=== PATIENT | female | born 1965 | race Caucasian/White ===

== ENCOUNTER 2021-03-12 13:11 | Outpatient (REF) | payer OTHER, SELFPAY ==
--- NOTE | ~2021-03-12 | MM_ITS ---
EXAMINATION: MM SCREENING DIGITAL BREAST TOMOSYNTHESIS, BILATERAL CLINICAL INFORMATION: Screening. Asymptomatic. The lifetime risk of breast cancer based on the Tyrer-Cuzick Model is 8%. COMPARISON: Mammography: 11/09/2019, 10/04/2017, 09/25/2016 TECHNIQUE: Digital breast tomosynthesis is performed in both the craniocaudal and mediolateral oblique views along with computer-aided detection (CAD). Synthesized 2D images are generated from the tomosynthesis. Additional exaggerated left CC view is provided. FINDINGS: The breasts are almost entirely fatty (ACR BI-RADS breast composition Category a). There are no significant masses, abnormal calcifications, or other abnormalities. Background stromal densities are stable. The axilla and skin contours are unremarkable. MM/MM tomosynthesis screening BI IMPRESSION: No mammographic evidence of malignancy. ASSESSMENT: BI-RADS 1: Negative RECOMMENDATION: Routine annual mammography screening. This patient's information was entered into a reminder system with a target due date for their next mammogram.
== END 2021-03-12 13:12 | disposition home or self-care (01) ==
LOC: HO.MAMMO 13:11
PROVIDERS: Visit Provider Internal Medicine Medical Oncology
DX: Z12.31 Encounter for screening mammogram for malignant neoplasm of breast (principal)
CPT/HCPCS: 77063; 77067

== ENCOUNTER 2021-08-20 12:08 | Outpatient (REF) | payer OTHER, SELFPAY ==
--- NOTE | ~2021-08-20 | XR_ITS ---
EXAMINATION: XR LUMBOSACRAL SPINE CLINICAL INFORMATION: Pain. COMPARISON: None TECHNIQUE: AP and lateral views of the lumbar spine and lateral view of the lumbosacral junction. FINDINGS: There is mild bony demineralization. Bony alignment is normal. Slight anterior wedging is questioned of the L4 lower endplate. There is vacuum disc phenomenon at T11-12 and T12-L1. There is moderate disc space narrowing L4-5, with a 5 mm retrolisthesis and vacuum disc phenomenon. There is moderate to marked disc space narrowing at L5-S1. No acute fracture or spondylolisthesis is seen. There is multi-level thoracolumbar spondylosis. There is facet arthropathy, most pronounced at L5-S1. Aortoiliac atherosclerotic calcifications are seen. There are upper abdominal surgical clips. Bilateral hip arthroplasties are noted. XR/XR lumbar spine 2-3V IMPRESSION: 1. There is multi-level degenerative disc disease of the thoracolumbar spine, most pronounced at T11-12, T12-L1, L4-5 and L5-S1. 2. There is multi-level thoracolumbar spondylosis. 3. There is an equivocal slight anterior wedge compression fracture of the L4 lower endplate. 4. There is facet arthropathy, most pronounced at L5-S1.
== END 2021-08-20 12:09 | disposition home or self-care (01) ==
LOC: HO.XRAY 12:08
PROVIDERS: PCP Internal Medicine Medical Oncology; Visit Provider Internal Medicine Medical Oncology
DX: M54.50 Low back pain, unspecified (principal)
CPT/HCPCS: 72100

== ENCOUNTER 2021-10-05 16:56 | Emergency (ER) | payer OTHER, SELFPAY ==
--- NOTE | ~2021-10-05 | XR_ITS ---
EXAMINATION: XR KNEE, RIGHT CLINICAL INFORMATION: Fall with knee pain COMPARISON: None TECHNIQUE: Two views of the right knee. FINDINGS: Severe tricompartmental degenerative changes are present most marked in the lateral and patellofemoral compartment a small joint effusion is present. Sclerosis, joint space narrowing and osteophytes are seen. The medial compartment is only mildly narrowed. No acute fracture detected. 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 XR/XR knee RT 2V IMPRESSION: Tricompartmental degenerative changes as described above. No acute finding.
[2021-10-05 17:14] VITALS: BP 158/93; PULSE 116; RESP 18; TEMP 36.5; O2SAT 100; BMI 40.2
--- NOTE | 2021-10-05 19:07 | ED.LOWEXIN ---
HPI - Extremity Injury (Lower) General Chief Complaint: Extremity Injury, Lower Stated Complaint: knee pain Time Seen by Provider: 10/05/21 18:44 Source: patient Mode of arrival: ambulatory Limitations: no limitations History of Present Illness HPI Narrative: 56-year-old female with a history of osteoarthritis in both of her knees, status post left knee replacement in the past, obesity who presents to the ER with acute on chronic right knee pain. She reports a mechanical fall about 2 weeks ago she fell onto her right knee. She has some pain directly on the knee cap and above the knee for about a week and a half it has been improving. She states about 2 days ago she has had worsening pain on the lateral aspect of her knee with difficulty and pain with bending the knee. today she was unable to put any weight on the knee and not able to ambulate at all. She has been using a cane and hobbling around. She denies any fever or chills. No redness or warmth to the knee. She has been wearing her knee brace with little over a fact. She has been taking intermittent Aleve and she had some leftover tramadol for her lower back pain that she took with minimal relief. MD complaint: knee injury Onset (ago): week(s) (2) Injury: Right: knee Type of Injury: blunt Place: home Severity: severe Severity scale (1-10): 9 Relieving factors: immobilization and rest Exacerbating factors: weight bearing, movement and palpation Context: fall Associated symptoms: swelling and unable to bear weight Other symptoms: none Related Data Previous Rx's Medication Instructions Recorded hydrocodone 5 mg-acetaminophen 325 1 tab PO Q8H PRN #8 tab 10/05/21 mg tablet Allergies Allergy/AdvReac Type Severity Reaction Status Date / Time amoxicillin [From AUGMENTIN] Allergy Unknown UNKNOWN Verified 10/05/21 17:14 clavulanic acid Allergy Unknown UNKNOWN Verified 10/05/21 17:14 [From AUGMENTIN] sulfamethoxazole Allergy Unknown UNKNOWN Verified 10/05/21 17:14 [From BACTRIM] trimethoprim [From BACTRIM] Allergy Unknown UNKNOWN Verified 10/05/21 17:14 Review of Systems Review of Systems: Constitutional: No Fever, No Chills Cardiovascular: No Chest Pain, No SOB, No Orthopnea, No Edema Respiratory: No Cough, No Sputum Gastrointestinal: No Nausea, No Vomiting, No Diarrhea, No abdominal Pain Musculoskeletal: + joint pain, No Myalgias Skin: No Skin Lesions, No rash Neuro: No Weakness, No Numbness, No Dizziness, No Headache Psych: + Anxiety/Panic, No Depression Heme/Lymph: + Bruising, No Lymphadenopathy PMFSH Past Medical History Medical History (Updated 10/05/21 @ 19:59 by LURDES aHrdin) High cholesterol HTN (hypertension) Social History Social History Advance Directives: No Advance Directives Information Provided: No Physical Exam Vital Signs: Vital Signs: Last Vital Signs Temp 97.7 F 10/05/21 17:14 Pulse 116 H 10/05/21 17:14 Resp 18 10/05/21 17:14 BP 158/93 H 10/05/21 17:14 Pulse Ox 100 10/05/21 17:14 Body Mass Index 40.2 Appearance: Alert. Oriented X3. No acute distress. HEENT: normal inspection CVS: Normal heart rate and rhythm. Pulses normal. Respiratory: No respiratory distress. Skin: Skin warm and dry. Normal skin color. Normal skin turgor. No rashes. Extremities: Left knee with a well-healed surgical scar consistent with prior knee replacement. No swelling or tenderness, normal range of motion. Right knee with mild generalized swelling lateral joint line tenderness normal passive range of motion with pain beyond 90 degrees. No joint warmth, erythema. No joint laxity appreciated. Neuro: Oriented X 3. No motor deficit. No sensory deficit. Course Course Course Narrative: 56 y/o female presenting with acute on chronic right knee pain s/p fall 2 weeks ago, acutely worsening in the last 2-3 days without any additional trauma. No evidence of septic joint. x-ray showing severe tricompartmental degenerative changes without acute fracture. There is a small joint effusion. She is able to partially bear weight with her cane. She lives at home with her son and . She lives in a two-story home but is agreeable to stay on the main floor until her pain is improved and she can be seen orthopedics. She would like to be seen by our orthopedic surgeon and knock of action when the Orthopedics. Will place an Santana wrap for comfort and prescribed short course of narcotics for pain. She will call Orthopedics tomorrow for follow-up. She is stable for discharge home. Critical Care Time Critical Care Time Critical Care Time: No Discharge Plan Discharge Clinical Impression: Knee joint pain Qualifiers: Laterality: right Qualified Code(s): M25.561 - Pain in right knee Patient Disposition: Home, Self-Care Instructions: Knee Pain (ED) Additional Instructions: Your knee x-ray showed severe tricompartmental degenerative changes in the lateral and patellofemoral compartments with a small joint effusion. Sclerosis joint space narrowing and osteophytes are seen. No acute fracture detected. Recommend rest, compression with Santana wrap, elevation, and pain control. You need to follow-up with orthopedics as soon as possible. Name and number below Prescriptions: New hydrocodone-acetaminophen 5-325 mg tablet 1 tab PO Q8H PRN (Reason: pain) Qty: 8 RF: 0 Referrals: Moise Espinosa MD [Physician] - 2 days
[2021-10-05] MEDS: HYDROcodone Bit/Acetam 5/325 TABLET 1 TAB PO (19:36)
[2021-10-05] MEDS: Ketorolac Tromethamine 15 MG/ML VIAL 30 MG IM (19:38)
== END 2021-10-05 20:23 | disposition home or self-care (01) ==
PROVIDERS: Emergency Provider Emergency Medicine; PCP Internal Medicine Medical Oncology
DX: M25.561 Pain in right knee (principal); Z79.899 Other long term (current) drug therapy
CPT/HCPCS: 73560; 96372; 99283; 99284; J1885

== ENCOUNTER 2021-10-31 07:26 | Outpatient (REF) | payer OTHER, SELFPAY ==
--- NOTE | ~2021-10-31 | XR_ITS ---
EXAMINATION: XR KNEE AP STANDING XR KNEE, RIGHT CLINICAL INFORMATION: Pain in the right knee. COMPARISON: X-ray of the right knee September 2021. TECHNIQUE: AP bilateral standing view of the knees was obtained. 3 views of the right knee. Patella view of the right knee. FINDINGS: Right Knee: There is prominent stable genu valgus with severe joint space narrowing of the lateral compartment along with marginal osteophytes, unchanged compared to prior. Probable loose bodies posteriorly better seen on prior radiographs. No lateral view obtained on this exam. Medial Compartment: Widened medial compartment likely related to the genu valgus. Arthrosis of the medial compartment with marginal osteophytes. Probable loose body projecting over the medial compartment. Patellofemoral Compartment: Bipartite patella. There is severe arthrosis of the patellofemoral compartment with prominent marginal osteophytes. Again noted is the central partially calcified intramedullary lesion in the distal diametaphysis of the femur measuring up to 6.5 cm craniocaudal and 2.7 cm transverse. Limited AP Upright of the Left Knee: Left total knee arthroplasty noted with components in the usual position. No periprosthetic fracture or suspicious area of lucency. XR/XR knee RT 1V IMPRESSION: Right Knee: Severe osteoarthritis, unchanged compared to prior. Again noted is the intramedullary distal femur mass with a chondroid-appearing matrix. The differential diagnosis includes enchondroma but cannot exclude low-grade chondrosarcoma. Further workup or evaluation based on additional clinical factors. No change compared to 10/05/2021. Bone infarct is possible but thought to be less likely. Left Knee Limited: Left total knee arthroplasty without complication by x-ray.
--- NOTE | ~2021-10-31 | XR_ITS ---
EXAMINATION: XR KNEE AP STANDING XR KNEE, RIGHT CLINICAL INFORMATION: Pain in the right knee. COMPARISON: X-ray of the right knee September 2021. TECHNIQUE: AP bilateral standing view of the knees was obtained. 3 views of the right knee. Patella view of the right knee. FINDINGS: Right Knee: There is prominent stable genu valgus with severe joint space narrowing of the lateral compartment along with marginal osteophytes, unchanged compared to prior. Probable loose bodies posteriorly better seen on prior radiographs. No lateral view obtained on this exam. Medial Compartment: Widened medial compartment likely related to the genu valgus. Arthrosis of the medial compartment with marginal osteophytes. Probable loose body projecting over the medial compartment. Patellofemoral Compartment: Bipartite patella. There is severe arthrosis of the patellofemoral compartment with prominent marginal osteophytes. Again noted is the central partially calcified intramedullary lesion in the distal diametaphysis of the femur measuring up to 6.5 cm craniocaudal and 2.7 cm transverse. Limited AP Upright of the Left Knee: Left total knee arthroplasty noted with components in the usual position. No periprosthetic fracture or suspicious area of lucency. XR/XR knee standing BI IMPRESSION: Right Knee: Severe osteoarthritis, unchanged compared to prior. Again noted is the intramedullary distal femur mass with a chondroid-appearing matrix. The differential diagnosis includes enchondroma but cannot exclude low-grade chondrosarcoma. Further workup or evaluation based on additional clinical factors. No change compared to 10/05/2021. Bone infarct is possible but thought to be less likely. Left Knee Limited: Left total knee arthroplasty without complication by x-ray.
== END 2021-10-31 07:27 | disposition home or self-care (01) ==
LOC: HO.HOSX 07:26
PROVIDERS: Visit Provider Physician Assistant
DX: M17.11 Unilateral primary osteoarthritis, right knee (principal)
CPT/HCPCS: 73560; 73565; 99202

== ENCOUNTER 2022-01-07 09:50 | Outpatient (REF) | payer OTHER, SELFPAY ==
--- NOTE | 2022-01-07 10:49 | ECG_ITS ---
Test Reason : Z01.810 Blood Pressure : / mmHG Vent. Rate : 106 BPM Atrial Rate : 106 BPM P-R Int : 184 ms QRS Dur : 084 ms QT Int : 352 ms P-R-T Axes : 062 011 049 degrees QTc Int : 467 ms Sinus tachycardia Otherwise normal ECG No previous ECGs available Referred By: Moise Espinosa Electronically Signed By:NATI BOSS
[2022-01-07 11:04] LABS: MANUAL DIFF FLAG NO
[2022-01-07 11:42] LABS: Basophils Absolute Auto 0.1 X10*3/uL (0.0-0.2); Basophils Percent Auto 0.6 % (0-2); Eosinophils Absolute Auto 0.6 X10*3/uL (0.0-0.4); Eosinophils Percent Auto 5.5 % (0-4); Hematocrit 44.4 % (37.0-47.0); Hemoglobin 14.2 g/dl (12.0-16.0); Imm Gran Abs Auto 0.04 X10*3/uL (0.00-0.03); Imm Gran Pct Auto 0.4 % (0.0-0.4); Lymphocytes Absolute Auto 3.1 X10*3/uL (1.2-4.9); Lymphocytes Percent Auto 30.4 % (20-40); Mean Corpuscular Hemoglobin 26.9 pg (27.0-33.0); Mean Corpuscular Volume 84.1 fL (80.0-98.0); Monocytes Absolute Auto 0.8 X10*3/uL (0.1-1.2); Monocytes Percent Auto 7.3 % (2-11); Neutrophils Absolute Auto 5.7 x10*3/uL (2.0-8.3); Neutrophils Percent Auto 55.8 % (45-73); Platelet Count 449 X10*3/uL (160-400); Red Blood Count 5.28 X10*6/uL (4.20-5.50); Red Cell Distribution Width 14.9 % (11.0-16.0); White Blood Count 10.3 X10*3/uL (4.8-10.8)
[2022-01-07 12:17] LABS: Anion Gap 14 (12-20); Blood Urea Nitrogen 8 mg/dL (9-16); Calcium 10.1 mg/dL (8.4-10.2); Carbon Dioxide 27 mmol/L (22-29); Chloride 104 mmol/L (96-108); Estimated Glomerular Filt Rate > 60; Glucose Random 120 mg/dL (60-115); Potassium 4.3 mmol/L (3.3-5.1); Sodium 141 mmol/L (135-145)
== END 2022-01-07 09:51 | disposition home or self-care (01) ==
LOC: HO.LAB 09:50
PROVIDERS: Visit Provider Orthopaedic Surgery
DX: Z01.812 Encounter for preprocedural laboratory examination (principal); Z01.810 Encounter for preprocedural cardiovascular examination
CPT/HCPCS: 36415; 80048; 85025; 93005

== ENCOUNTER 2022-01-21 09:21 | Outpatient (REF) | payer OTHER, SELFPAY ==
[2022-01-21 10:15] LABS: MANUAL DIFF FLAG NO
[2022-01-21 10:24] LABS: Basophils Absolute Auto 0.1 X10*3/uL (0.0-0.2); Basophils Percent Auto 0.6 % (0-2); Eosinophils Absolute Auto 0.4 X10*3/uL (0.0-0.4); Eosinophils Percent Auto 4.1 % (0-4); Hematocrit 42.4 % (37.0-47.0); Hemoglobin 13.7 g/dl (12.0-16.0); Imm Gran Abs Auto 0.05 X10*3/uL (0.00-0.03); Imm Gran Pct Auto 0.5 % (0.0-0.4); Lymphocytes Absolute Auto 2.8 X10*3/uL (1.2-4.9); Mean Corpuscular HGB Conc 32.3 g/dl (31.0-35.0); Mean Corpuscular Hemoglobin 26.4 pg (27.0-33.0); Mean Corpuscular Volume 81.9 fL (80.0-98.0); Mean Platelet Volume 9.8 fL (9.4-12.3); Monocytes Absolute Auto 0.8 X10*3/uL (0.1-1.2); Monocytes Percent Auto 8.3 % (2-11); Neutrophils Absolute Auto 5.8 x10*3/uL (2.0-8.3); Neutrophils Percent Auto 58.5 % (45-73); Platelet Count 425 X10*3/uL (160-400); Red Blood Count 5.18 X10*6/uL (4.20-5.50); Red Cell Distribution Width 15.1 % (11.0-16.0); White Blood Count 9.9 X10*3/uL (4.8-10.8)
[2022-01-21 10:33] LABS: Alanine Aminotransferase 24 U/L (0-31); Albumin Level 4.2 g/dL (3.5-5.0); Alkaline Phosphatase 82 U/L (39-117); Anion Gap 13 (12-20); Aspartate Amino Transferase 36 U/L (5-31); Bilirubin Total 0.5 mg/dL (0.0-1.0); Blood Urea Nitrogen 11 mg/dL (9-16); Calcium 9.6 mg/dL (8.4-10.2); Carbon Dioxide 26 mmol/L (22-29); Chloride 105 mmol/L (96-108); Cholesterol 125 mg/dL; Estimated Glomerular Filt Rate > 60; Glucose Fasting 107 mg/dL (60-99); HDL Cholesterol 32 mg/dL; LDL Cholesterol Calculated 58 mg/dl; Potassium 3.6 mmol/L (3.3-5.1); Sodium 140 mmol/L (135-145); Triglycerides 179 mg/dL
== END 2022-01-21 09:22 | disposition home or self-care (01) ==
LOC: HO.10HDL 09:21
PROVIDERS: Visit Provider Internal Medicine Medical Oncology
DX: E78.5 Hyperlipidemia, unspecified (principal); G89.29 Other chronic pain; M25.561 Pain in right knee; M15.9 Polyosteoarthritis, unspecified
CPT/HCPCS: 36415; 80053; 80061; 85025

== ENCOUNTER → 2022-01-29 09:27 | Outpatient (BNVA) | payer OTHER, SELFPAY | PROVIDERS: Visit Provider Physician Assistant | DX: Z01.818 Encounter for other preprocedural examination (principal); M17.11 Unilateral primary osteoarthritis, right knee | CPT/HCPCS: 99212 ==

== ENCOUNTER 2022-02-03 08:07 | Inpatient (IN) | payer OTHER, SELFPAY ==
[2022-01-22 12:01] VITALS: BP 144/88; PULSE 94; RESP 20; O2SAT 98; BMI 39.3
[2022-01-22 15:03] LABS: MRSA Nasal PCR NEGATIVE (Negative); SA Nasal PCR POSITIVE (Negative)
--- NOTE | 2022-02-02 10:12 | P.CONAN_ITS ---
Documented by User: Teressa Schmitz NP 02/02/22 10:15 HPI - Anesthesia Eval Consult details Narrative: 56yo F for Right Knee Replacement Total PCP cleared s/p Left TKA and bilat ANNA PMFSH Active Problems Active Problems: All Active Problems (Updated 01/22/22 @ 11:54 by Shira French RN) Primary osteoarthritis of right knee (Acute) Past Medical History Medical History Arthritis Back pain GERD (gastroesophageal reflux disease) High cholesterol History of diverticulitis HTN (hypertension) Surgical History Surgical History Hx of cholecystectomy Hx of colonoscopy Status post left knee replacement Status post total hip replacement, left Status post total hip replacement, right Social History Social History Are you a primary spiritual care coordinator to a significant other at home: Yes ( - ill) Do you presently have visiting nurse or other home services: No Patient Tobacco Use Status: Former Tobacco user Quit Date: 1 month ago Tobacco use type: Cigarette Cigarette Packs Per Day: 0.75 Cigarettes Per Day: 15.0 Years Smoked: 10 Smoked in Last 30 Days: No Patient Interested in Nicotine Replacement: No Patient Given Instructions on How to Stop Smoking: No Second Hand Smoke Exposure: No Use of substances other than those prescribed or required for medical reasons: No Have you been hit, kicked, punched, or otherwise hurt by someone within the past year? If so, by whom?: No Are you DNR?: Yes Advance Directives: No Advance Directives Information Provided: Yes Advance Directives on File: No Recently lost weight without trying: No Eating poorly because of decreased appetite: No Nutrition Risks: No Nutritional Risk Patient : No : No Poor oral hygiene: No (Intact teeth) Meds Allergies Allergy/AdvReac Type Severity Reaction Status Date / Time amoxicillin [From AUGMENTIN] Allergy Unknown Severe Verified 02/03/22 08:20 Vaginal Burning clavulanic acid Allergy Unknown Severe Verified 02/03/22 08:20 [From AUGMENTIN] Vaginal Burning sulfamethoxazole Allergy Unknown Rash Verified 02/03/22 08:20 [From BACTRIM] trimethoprim [From BACTRIM] Allergy Unknown Rash Verified 02/03/22 08:20 Home Medications Medication Instructions Recorded Confirmed Last Taken Type lisinopril 20 1 tab PO DAILY 01/07/22 01/21/22 Unknown History mg-hydrochlorothiazide 12.5 mg tablet omeprazole 20 mg capsule,delayed 20 mg PO DAILY 01/07/22 01/21/22 Unknown History release simvastatin 80 mg tablet 80 mg PO QPM 01/07/22 01/21/22 Unknown History acetaminophen 650 mg 1,300 mg PO Q12H 01/22/22 01/22/22 Unknown History tablet,extended release ibuprofen 200 mg capsule 800 mg PO Q8H PRN 01/22/22 01/22/22 01/27/22 History naproxen sodium 220 mg capsule 440 mg PO Q12H PRN 01/22/22 01/22/22 01/27/22 History (Alerhoda) Exam Exam Date and Time: February 02, 2022 1012 Height,Weight and Vital Signs: Height 5 ft 2 in Weight 97.522 kg Last Vital Signs Pulse 94 01/22/22 12:01 Resp 20 01/22/22 12:01 BP 144/88 H 01/22/22 12:01 Pulse Ox 98 01/22/22 12:01 Pertinent Lab Results Pertinent Lab Results: Laboratory Tests 01/22/22 01/22/22 12:40 13:42 Nasal Screen MRSA (PCR) NEGATIVE Nasal S. aureus Screen POSITIVE A Nasal MRSA/S.aureus Interp SEE NOTE Blood Type O Positive Antibody Screen NEGATIVE Laboratory Tests 01/21/22 01/21/22 09:28 09:28 WBC 9.9 Hgb 13.7 Hct 42.4 Plt Count 425 H Sodium 140 Potassium 3.6 Chloride 105 Carbon Dioxide 26 BUN 11 Creatinine 0.76 Narrative Narrative: EKG 12/2021 Vent. Rate : 106 BPM ? ? Atrial Rate : 106 BPM ?? P-R Int : 184 ms? QRS Dur : 084 ms ? ? QT Int : 352 ms ? ? ? P-R-T Axes : 062 011 049 degrees ?? QTc Int : 467 ms ? Sinus tachycardia Otherwise normal ECG No previous ECGs available Assessment and Plan Assessment Anesthesia Assessment: Chart Reviewed Documented by User: Kemar Acevedo MD 02/03/22 10:01 [facility] Past Medical History Medical History Arthritis Back pain GERD (gastroesophageal reflux disease) High cholesterol History of diverticulitis HTN (hypertension) Family History Family history of problems with anesthesia: No Surgical History Surgical History Hx of cholecystectomy Hx of colonoscopy Status post left knee replacement Status post total hip replacement, left Status post total hip replacement, right History of Problems with Anesthesia: No Social History Social History Are you a primary spiritual care coordinator to a significant other at home: Yes ( - ill) Do you presently have visiting nurse or other home services: No Patient Tobacco Use Status: Former Tobacco user Quit Date: 1 month ago Tobacco use type: Cigarette Cigarette Packs Per Day: 0.75 Cigarettes Per Day: 15.0 Years Smoked: 10 Smoked in Last 30 Days: No Patient Interested in Nicotine Replacement: No Patient Given Instructions on How to Stop Smoking: No Second Hand Smoke Exposure: No Use of substances other than those prescribed or required for medical reasons: No Have you been hit, kicked, punched, or otherwise hurt by someone within the past year? If so, by whom?: No Are you DNR?: Yes Advance Directives: No Advance Directives Information Provided: Yes Advance Directives on File: No Recently lost weight without trying: No Eating poorly because of decreased appetite: No Nutrition Risks: No Nutritional Risk Patient : No : No Poor oral hygiene: No (Intact teeth) Meds Allergies Allergy/AdvReac Type Severity Reaction Status Date / Time amoxicillin [From AUGMENTIN] Allergy Unknown Severe Verified 02/03/22 08:20 Vaginal Burning clavulanic acid Allergy Unknown Severe Verified 02/03/22 08:20 [From AUGMENTIN] Vaginal Burning sulfamethoxazole Allergy Unknown Rash Verified 02/03/22 08:20 [From BACTRIM] trimethoprim [From BACTRIM] Allergy Unknown Rash Verified 02/03/22 08:20 Home Medications Medication Instructions Recorded Confirmed Last Taken Type lisinopril 20 1 tab PO DAILY 01/07/22 01/21/22 Unknown History mg-hydrochlorothiazide 12.5 mg tablet omeprazole 20 mg capsule,delayed 20 mg PO DAILY 01/07/22 01/21/22 Unknown History release simvastatin 80 mg tablet 80 mg PO QPM 01/07/22 01/21/22 Unknown History acetaminophen 650 mg 1,300 mg PO Q12H 01/22/22 01/22/22 Unknown History tablet,extended release ibuprofen 200 mg capsule 800 mg PO Q8H PRN 01/22/22 01/22/22 01/27/22 History naproxen sodium 220 mg capsule 440 mg PO Q12H PRN 01/22/22 01/22/22 01/27/22 History (Wendy) Exam Airway Mallampati Class: III TM Dist: >3cm Neck ROM: Full Loose/Missing/Broken Teeth: Yes Assessment and Plan Assessment Anesthesia Assessment: Anesthesia Plan Discussed Final Anesthetic Review Family History of Problems with Anesthesia: No History of Problems with Anesthesia: No NPO: Yes ASA Class: III Final Preanesthetic Review: No Changes in Pt Med Stat, Meds/Allgs Chart Reviewed, Consent Obtained/Reviewed and Anes Risks/Benef Reviewed Patient Risk: Intermediate Procedure Risk: Intermediate Anesthetic Plan Anesthetic Plan: MAC:, Spinal and Regional Block Disposition: Standard PACU
[2022-02-03] VITALS (19 sets, daily range): BP systolic 107–183; BP diastolic 64–97; PULSE 76–98; RESP 12–20; TEMP 35.8–37.1; O2SAT 95–100
--- NOTE | ~2022-02-03 | XR_ITS ---
EXAMINATION: XR KNEE, RIGHT CLINICAL INFORMATION: Right knee replacement COMPARISON: Previous x-ray October 2021 TECHNIQUE: Two views of the right knee. FINDINGS: There is a new right knee replacement in satisfactory position. No fracture or dislocation is seen. There is a partially calcified intramedullary lesion in the distal femoral shaft that appears stable suggestive of a cartilaginous lesion. This probably represents an enchondroma. Low-grade chondrosarcoma cannot be excluded. There are postoperative changes to the soft tissues. XR/XR knee RT 2V IMPRESSION: Satisfactory appearance of right knee replacement. Stable intramedullary lesion in the right distal femoral shaft. This probably represents an enchondroma. Low-grade chondrosarcoma cannot be excluded.
--- NOTE | 2022-02-03 07:49 | MHC.SHP ---
Pre-Procedural Eval Section A Date of Service: 02/03/22 The patient is an INPATIENT: No Changes since office visit: Yes Patient answered all questions; No Cold of Flu in the past 2 weeks, No New Medical Problems and No Changes in Medication The History & Physical has been completed within 30 days and I have reviewed it.: Yes Section B Chief Complaint: osteoarthritis Allergies: Allergies Allergy/AdvReac Type Severity Reaction Status Date / Time amoxicillin [From AUGMENTIN] Allergy Unknown Severe Verified 01/29/22 09:34 Vaginal Burning clavulanic acid Allergy Unknown Severe Verified 01/29/22 09:34 [From AUGMENTIN] Vaginal Burning sulfamethoxazole Allergy Unknown Rash Verified 01/29/22 09:34 [From BACTRIM] trimethoprim [From BACTRIM] Allergy Unknown Rash Verified 01/29/22 09:34 Plan I have reviewed the history and physical and performed a pertinent physical examination on my patient. No changes have occurred unless specified.
[2022-02-03 08:51] LABS: COVID-19 Test Negative (Negative); IDNOW Serial# 16C4AD1C
[2022-02-03] MEDS: Lactated Ringers 1,000 ML 100 ML IVCONT ×2 (08:53→17:19)
--- NOTE | 2022-02-03 11:11 | PM.OP ---
Brief Operative Note Date of Service: 02/03/22 Pre-op diagnosis: right knee OA Post-op diagnosis: same Procedure: Right TKA Implants: Sara triathalon cemented PS 01/16//s Surgeon: Moise Espinosa MD Anesthesia: regional and spinal Was an Hob Machine Operator used for this Procedure?: Yes Hob Machine Operator: Caity Bolivar Estimated blood loss (mL): 200 IV fluids (mL): 1,000 Pathology: other Condition: stable Disposition: PACU
--- NOTE | 2022-02-03 11:17 | W.PM.OPN ---
Operative Note Operative Note Date of Service: 02/03/22 Narrative: Pre-op diagnosis: right knee OA Post-op diagnosis: same Procedure: Right TKA Implants: [place] triathalon cemented PS 3//13TS/29s Surgeon: Moise Espinosa MD Anesthesia: regional and spinal Was an Assembler Metal Furniture used for this Procedure?: Yes Assembler Metal Furniture: Caity Bolivar Estimated blood loss (mL): 200 IV fluids (mL): 1,000 Pathology: other Condition: stable Disposition: PACU ]Procedure in detail: The patient was brought to the operating room and prepped and draped in standard sterile fashion. A time-out was called to identify proper site proper procedure proper surgeon and IV antibiotics were administered. 1 g of IV tranexamic acid was administered. I began by making a midline incision to the retinaculum and performed a medial parapatellar arthrotomy. The patella was translated laterally and the knee was flexed up. This was a valgus knee iwth eburnation in all compartments. I performed a small medial peel and resected the infrapatellar fat pad. Sheryl's line was then used to drill my intramedullary femoral guide and my distal femur cut of 12 mm was made in 5 degrees of valgus while protecting the soft tissues. I then measured a # 3 femur and placed my cutting guide and made my anterior posterior and chamfer cuts protecting the soft tissues at all times. I then made my box but removing the PCL. Once I was satisfied with my cuts I turned my attention to the tibia. I removed the meniscus medially and laterally and , using an external cutting guide, in line with the tibial crest and the third ray, I made my distal tibial cut in 0 deg slope of while protecting the PCL the posterior soft tissues at all times. An extension block was used to confirm appropriate amount of bony resection. I then sized a #4 tibia and once I was satisfied that there was complete tibial coverage I placed my trial and with the trial femur in place took the knee through range of motion. I piecrusted the tight LCL. I was satisfied with the extension and flexion as well as the stability and balance at 0, 30 and 90 degrees. I then turned my attention to the patella where I removed about 5 from the undersurface of the severely deformed patella. There was a loose bipartitie piece which was removed. I then trialed a 29s patellar button. The knee was taken through range of motion I was satisfied with the tracking. A femoral bone plug was placed and the knee was irrigated copiously. I then cemented the patella, tibia and femur in standard fashion. I trialed different inserts until I selected a #[id number] insert. The final insert was placed and a 3 minutes iodine soak with local TXA was performed. Hemostasis was maintained with a Werewol hemostasis wand. The knee was then closed with a running Quill suture, a 3 0 Vicryl and ruby on the skin. Patient was then placed in sterile dressing and brought to recovery room in stable condition there were no known complications.
[2022-02-03] MEDS: oxyCODONE HCl Immed Release 5 MG TABLET PO ×2 (11:29→17:13)
[2022-02-03] MEDS: HYDROmorphone HCl 0.5 MG/0.5 ML SYRINGE IVPUSH ×2 (15:26→16:05)
--- NOTE | 2022-02-03 16:38 | HO.PM.IMCN ---
History of Present Illness Data of Consult Service Date: 02/03/22 Primary Care Provider: Stefan Sandoval MD HPI 56-year-old female with hypertension, hyperlipidemia, GERD, osteoarthritis of the knee who had a right knee arthroplasty today has no issue postoperatively. Review of Systems Review of Systems: no chest pain, no sob pain in the knee is maneageabe [facility] Medical History (Updated 02/04/22 @ 10:[address] MD) Arthritis Back pain GERD (gastroesophageal reflux disease) High cholesterol History of diverticulitis HTN (hypertension) Family History (Updated 02/03/22 @ 16:[address] MD) Other HTN (hypertension) Surgical History (Updated 02/04/22 @ 07:37 by Francheska Clark PA-C) Hx of cholecystectomy Hx of colonoscopy Status post left knee replacement Status post total hip replacement, left Status post total hip replacement, right Social History Household Members: Spouse Housing: House 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: Yes ( - ill) Do you presently have visiting nurse or other home services: No Patient Tobacco Use Status: Former Tobacco user Quit Date: 3 weeks ago Tobacco use type: Cigarette Cigarette Packs Per Day: 0.75 Cigarettes Per Day: 15.0 Years Smoked: 20 Second Hand Smoke Exposure: No Meds Allergies Allergy/AdvReac Type Severity Reaction Status Date / Time amoxicillin [From AUGMENTIN] Allergy Unknown Severe Verified 02/03/22 08:20 Vaginal Burning clavulanic acid Allergy Unknown Severe Verified 02/03/22 08:20 [From AUGMENTIN] Vaginal Burning sulfamethoxazole Allergy Unknown Rash Verified 02/03/22 08:20 [From BACTRIM] trimethoprim [From BACTRIM] Allergy Unknown Rash Verified 02/03/22 08:20 Active Medications: Current Medications Acetaminophen (Acetaminophen 325 Mg Tablet) 650 mg PO Q6H PRN PRN Reason: Pain, Mild (Pain Scale 1-3) Docusate Sodium (Docusate Sodium 100 Mg Capsule) 100 mg PO BID [place] Hydromorphone HCl (Hydromorphone Hcl 1 Mg/Ml Syringe) 0.25 mg IVPUSH Q4H PRN; Protocol PRN Reason: Pain, Severe (Pain Scale 7-10) Lactated Ringer's (Lr) 1,000 mls @ 100 mls/hr IVCONT .Q10H [facility] Last Admin: 02/03/22 08:53 Dose: 100 mls/hr Documented by: Cefazolin Sodium/Dextrose (Ancef) 2 gm in 50 mls @ 100 mls/hr IV POSTOP ONE Stop: 02/03/22 16:53 Ondansetron HCl (Ondansetron Hcl 4 Mg/2 Ml Vial) 4 mg IVPUSH Q8H PRN PRN Reason: Nausea and Vomiting Oxycodone HCl (Oxycodone Hcl Immed Release 5 Mg Tablet) 5 mg PO Q4H PRN PRN Reason: Pain, Moderate (Pain Scale 4-6 Oxycodone HCl (Oxycodone Hcl Er 10 Mg Tab.Er.12h) 10 mg PO BID [facility] Sodium Chloride (0.9 % Sodium Chloride Flush 3 Ml Syringe) 3 ml IVFLUSH QSHIFT [facility] Home Medications Medication Instructions Recorded Confirmed Last Taken Type lisinopril 20 1 tab PO DAILY 01/07/22 02/04/22 Unknown History mg-hydrochlorothiazide 12.5 mg tablet omeprazole 20 mg capsule,delayed 20 mg PO DAILY 01/07/22 01/21/22 Unknown History release simvastatin 80 mg tablet 80 mg PO QPM 01/07/22 01/21/22 Unknown History acetaminophen 650 mg 1,300 mg PO Q12H 01/22/22 01/22/22 Unknown History tablet,extended release ibuprofen 200 mg capsule 800 mg PO Q8H PRN 01/22/22 01/22/22 01/27/22 History naproxen sodium 220 mg capsule 440 mg PO Q12H PRN 01/22/22 01/22/22 01/27/22 History ([place]) Physical Exam Vital Signs and Narrative: Vital Signs: Last Vital Signs Temp 98.6 F 02/03/22 15:15 Pulse 86 02/03/22 16:11 Resp 16 02/03/22 16:11 BP 109/64 02/03/22 16:11 Pulse Ox 96 02/03/22 16:11 BMI result Body Mass Index 39.3 Const: Other: Constitutional: Alert, in no distress, overweight. Mental Status: Oriented to person, place and time. Eyes: Pupils are equal, round and reactive to light. Ear, Nose and Throat: Oropharynx clear, mucous membranes moist. Ears and nose without eformities. Trachea midline. Respiratory: Clear to auscultation. No wheezing, rales or rhonchi. Cardiovascular: S1 S2 regular. No murmurs, rubs or gallops. Gastrointestinal: Abdomen soft, non-tender, non-distended. Normal bowel sounds.? Neurologic: Cranial nerves II-XII grossly intact. No focal neurological deficits. Moves all extremities spontaneously.? Skin: No rashes or lesions.? Musculoskeletal: No cyanosis or clubbing. Psychiatric: Normal mood and affect? Results Labs CBC and Chem 7: 02/04/22 05:57 02/04/22 05:57 Labs: Laboratory Results - last 24 hr 02/03/22 08:05 COVID-19 (MINDI) Negative COVID-19 Clin Com See Note Imaging Radiologist's Impressions: Impressions Knee X-Ray 02/03/22 13:50 IMPRESSION: Satisfactory appearance of right knee replacement. Stable intramedullary lesion in the right distal femoral shaft. This probably represents an enchondroma. Low-grade chondrosarcoma cannot be excluded. Assessment and Plan (1) High cholesterol: Status: Acute (2) HTN (hypertension): Status: Acute (3) Status post right knee replacement: Status: Acute (4) GERD (gastroesophageal reflux disease): Status: Acute Plan 56-year-old female with hypertension, hyperlipidemia, GERD, osteoarthritis of the knee who had a right knee arthroplasty today 1/HTN--resume lisinoprio/HCTZ 2/HLD--Simvastatin 3/GERD--omeprazol 4/obesity--weight loss advised 5/s/p right knee arthroplasty--management per ortho
[2022-02-03] MEDS: ceFAZolin Sodium/Dextrose,Iso 2 GM/50 ML PIGGYBACK IV (17:14)
[2022-02-03] MEDS: oxyCODONE HCl ER 10 MG TAB.ER.12H PO (20:31)
[2022-02-03] MEDS: Docusate Sodium 100 MG CAPSULE PO (20:32)
[2022-02-03] MEDS: HYDROmorphone HCl 1 MG/ML SYRINGE 0.25 MG IVPUSH (20:35)
[2022-02-03] MEDS: oxyCODONE HCl Immed Release 5 MG TABLET 10 MG PO (21:36)
--- NOTE | 2022-02-03 21:47 | PC.NURSE ---
P BP elevated 175/97 pulse 94,patient c/o surgicaal pain I medicated for pain,repositioned E will monitor
[2022-02-04] VITALS (11 sets, daily range): BP systolic 155–183; BP diastolic 66–89; PULSE 91–104; RESP 18–21; TEMP 36.2–37.3; O2SAT 93–99
[2022-02-04] MEDS: 0.9 % Sodium Chloride Flush 3 ML SYRINGE IVFLUSH (00:49)
[2022-02-04] MEDS: HYDROmorphone HCl 1 MG/ML SYRINGE 0.25 MG IVPUSH ×4 (00:50→15:44)
[2022-02-04] MEDS: oxyCODONE HCl Immed Release 5 MG TABLET 10 MG PO ×5 (03:01→21:13)
[2022-02-04] MEDS: Lactated Ringers 1,000 ML 100 ML IVCONT ×2 (03:02→15:45)
[2022-02-04 06:14] LABS: MANUAL DIFF FLAG NO
[2022-02-04 06:17] LABS: Basophils Percent Auto 0.1 % (0-2); Hematocrit 37.3 % (37.0-47.0); Imm Gran Abs Auto 0.09 X10*3/uL (0.00-0.03); Imm Gran Pct Auto 0.6 % (0.0-0.4); Lymphocytes Absolute Auto 2.2 X10*3/uL (1.2-4.9); Lymphocytes Percent Auto 14.1 % (20-40); Mean Corpuscular HGB Conc 32.2 g/dl (31.0-35.0); Mean Corpuscular Hemoglobin 26.3 pg (27.0-33.0); Mean Corpuscular Volume 81.8 fL (80.0-98.0); Mean Platelet Volume 9.6 fL (9.4-12.3); Monocytes Absolute Auto 1.3 X10*3/uL (0.1-1.2); Neutrophils Absolute Auto 12.2 x10*3/uL (2.0-8.3); Neutrophils Percent Auto 77.2 % (45-73); Platelet Count 356 X10*3/uL (160-400); Red Blood Count 4.56 X10*6/uL (4.20-5.50); Red Cell Distribution Width 15.4 % (11.0-16.0); White Blood Count 15.8 X10*3/uL (4.8-10.8)
[2022-02-04 06:32] LABS: Anion Gap 12 (12-20); Blood Urea Nitrogen 8 mg/dL (9-16); Calcium 9.1 mg/dL (8.4-10.2); Carbon Dioxide 25 mmol/L (22-29); Chloride 106 mmol/L (96-108); Creatinine Clr Calc Pharmacy 106.6; Estimated Glomerular Filt Rate > 60; Glucose Fasting 138 mg/dL (60-99); Potassium 3.8 mmol/L (3.3-5.1); Sodium 139 mmol/L (135-145)
--- NOTE | 2022-02-04 07:20 | PHA.MEDREC ---
Pharmacy Consult ? Medication Reconciliation Pharmacy has reviewed the medication reconciliation completed by Shira. Yessenia العلي, PharmD
--- NOTE | 2022-02-04 07:34 | P.PNOP_ITS ---
Subjective Subjective Date of Service: 02/04/22 Interval history: POD1 s/p RTKA. Patient had some pain overnight. Pain meds adjusted accordingly and then had adequate relief. No additional complaints. Physical Exam Vital Signs: Vital Signs: Last Vital Signs Temp 97.6 F 02/04/22 03:34 Pulse 99 02/04/22 03:34 Resp 18 02/04/22 05:47 BP 171/86 H 02/04/22 03:34 Pulse Ox 94 02/04/22 03:34 BMI result Body Mass Index 39.3 Extrem: Other: Right knee Aquacel is clean dry and intact. Patient is able to flex and extend. NVI. Procedures Date of Service Date of Service: 02/04/22 Progress Note: A&P Assessment and plan (1) Status post right knee replacement: Status: Acute Plan Continue pain mgmnt Begin ASA for dvt ppx begin PT for RTKA Dispo planning-Pending PT eval, pain mgmnt Fall Risk Details Current Medications: Current Medications Acetaminophen (Acetaminophen 325 Mg Tablet) 650 mg PO Q6H PRN PRN Reason: Pain, Mild (Pain Scale 1-3) Aspirin (Aspirin 325 Mg Tablet) 325 mg PO BID [facility] BY [facility] Docusate Sodium (Docusate Sodium 100 Mg Capsule) 100 mg PO BID [facility] BY [facility] Last Admin: 02/03/22 20:32 Dose: 100 mg Documented by: Hydromorphone HCl (Hydromorphone Hcl 1 Mg/Ml Syringe) 0.25 mg IVPUSH Q4H PRN; Protocol PRN Reason: Pain, Severe (Pain Scale 7-10) Last Admin: 02/04/22 05:47 Dose: 0.25 mg Documented by: Lactated Ringer's (Lr) 1,000 mls @ 100 mls/hr IVCONT .Q10H REPLACED BY [facility] Last Admin: 02/04/22 03:02 Dose: 100 mls/hr Documented by: Ondansetron HCl (Ondansetron Hcl 4 Mg/2 Ml Vial) 4 mg IVPUSH Q8H PRN PRN Reason: Nausea and Vomiting Oxycodone HCl (Oxycodone Hcl Er 10 Mg Tab.Er.12h) 10 mg PO BID [facility] Last Admin: 02/03/22 20:31 Dose: 10 mg Documented by: Oxycodone HCl (Oxycodone Hcl Immed Release 5 Mg Tablet) 10 mg PO Q4H PRN PRN Reason: Pain, Moderate (Pain Scale 4-6 Last Admin: 02/04/22 03:01 Dose: 10 mg Documented by: Sodium Chloride (0.9 % Sodium Chloride Flush 3 Ml Syringe) 3 ml IVFLUSH [facility] Last Admin: 02/04/22 00:49 Dose: 3 ml Documented by: Time Spent With Patient Time: Total time spent is greater than 50% in coordination of care (as documented) at patient's floor/unit and/or counseling patient: Quality Stroke Does the patient have a stroke diagnosis?: No VTE Prior VTE?: No VTE Risk Level:: Surgical - very high VTE Device Contraindication: N/A - Device Ordered VTE Drug Contraindication: N/A - Med Ordered
[2022-02-04] MEDS: Docusate Sodium 100 MG CAPSULE PO ×2 (08:12→19:37)
[2022-02-04] MEDS: Aspirin 325 MG TABLET PO ×2 (08:12→19:37)
[2022-02-04] MEDS: oxyCODONE HCl ER 10 MG TAB.ER.12H PO ×2 (08:12→19:38)
--- NOTE | 2022-02-04 10:16 | HO.PM.IMPN ---
Subjective Subjective Date of Service: 02/04/22 Interval History: f/u on HTN BP is high has not received meds yet Review of Systems no chest pain, no sob pain in the knee is maneageabe Physical Exam Vital Signs: Vital Signs: Last Vital Signs Temp 97.2 F 02/04/22 07:47 Pulse 104 H 02/04/22 07:47 Resp 21 H 02/04/22 07:47 BP 166/78 H 02/04/22 07:47 Pulse Ox 99 02/04/22 07:47 BMI result Body Mass Index 39.3 Const: Other: General: AO X 3, no acute distress Resp: CTA bilateral CVS: S1,S2,RRR GI: +BS, NT, no distention Skin: No rash Neuro: motor grossly intact Psych: appropriate affect Objective Data Active Medications Acetaminophen (Acetaminophen 325 Mg Tablet) 650 mg PO Q6H PRN PRN Reason: Pain, Mild (Pain Scale 1-3) Aspirin (Aspirin 325 Mg Tablet) 325 mg PO BID [facility] Last Admin: 02/04/22 08:12 Dose: 325 mg Documented by: MAMTA Docusate Sodium (Docusate Sodium 100 Mg Capsule) 100 mg PO BID [facility] Last Admin: 02/04/22 08:12 Dose: 100 mg Documented by: MAMTA Hydromorphone HCl (Hydromorphone Hcl 1 Mg/Ml Syringe) 0.25 mg IVPUSH Q4H PRN; Protocol PRN Reason: Pain, Severe (Pain Scale 7-10) Last Admin: 02/04/22 05:47 Dose: 0.25 mg Documented by: KEREN Lactated Ringer's (Lr) 1,000 mls @ 100 mls/hr IVCONT .Q10H [facility] Last Admin: 02/04/22 03:02 Dose: 100 mls/hr Documented by: KEREN Ondansetron HCl (Ondansetron Hcl 4 Mg/2 Ml Vial) 4 mg IVPUSH Q8H PRN PRN Reason: Nausea and Vomiting Oxycodone HCl (Oxycodone Hcl Er 10 Mg Tab.Er.12h) 10 mg PO BID [facility] Last Admin: 02/04/22 08:12 Dose: 10 mg Documented by: MAMTA Oxycodone HCl (Oxycodone Hcl Immed Release 5 Mg Tablet) 10 mg PO Q4H PRN PRN Reason: Pain, Moderate (Pain Scale 4-6 Last Admin: 02/04/22 08:13 Dose: 10 mg Documented by: MAMTA Sodium Chloride (0.9 % Sodium Chloride Flush 3 Ml Syringe) 3 ml IVFLUSH QSHIFT [facility] Last Admin: 02/04/22 08:17 Dose: Not Given Documented by: MAMTA Non-Admin Reason: IV Running Labs CBC & Chem 7: 02/04/22 05:57 02/04/22 05:57 Labs: Laboratory Results - last 24 hr 02/04/22 02/04/22 05:57 05:57 MCV 81.8 MCH 26.3 L MCHC 32.2 RDW 15.4 Plt Count 356 MPV 9.6 Immature Gran % (Auto) 0.6 H Neut % (Auto) 77.2 H Lymph % (Auto) 14.1 L [place] % (Auto) 8.0 Eos % (Auto) 0.0 Baso % (Auto) 0.1 Lymph # (Auto) 2.2 [place] # (Auto) 1.3 H Eos # (Auto) 0.0 Baso # (Auto) 0.0 Abs Immat Gran (auto) 0.09 H Absolute Neuts (auto) 12.2 H Absolute Nucleated RBC 0.000 Nucleated RBC % (auto) 0.0 Anion Gap 12 Estim Creat Clear Calc 106.6 Estimated GFR > 60 Fasting Glucose 138 H Calcium 9.1 Assessment and Plan (1) High cholesterol: Status: Acute (2) HTN (hypertension): Status: Acute Plan 56-year-old female with hypertension, hyperlipidemia, GERD, osteoarthritis of the knee who had a right knee arthroplasty today 1/HTN--BP high this morning, resume lisinoprio/HCTZ 2/HLD--Simvastatin or formulary exchange 3/GERD--omeprazol 4/obesity--weight loss advised 5/s/p right knee arthroplasty--management per ortho ASA for DVT prop Quality Stroke Does the patient have a stroke diagnosis?: No VTE Prior VTE?: No VTE Risk Level:: Surgical - very high VTE Device Contraindication: N/A - Device Ordered VTE Drug Contraindication: N/A - Med Ordered
[2022-02-04] MEDS: Acetaminophen 325 MG TABLET 650 MG PO ×2 (10:50→19:36)
[2022-02-04] MEDS: Omeprazole 20 MG CAPSULE.DR PO (10:50)
--- NOTE | 2022-02-04 11:05 | MHC.CM.NN ---
met with pt who lives with her ..pt is agreeable to vna for home pt as receommended by physical therapy pt has own transport home
[2022-02-04] MEDS: lisinopriL 20 MG TABLET PO (12:50)
[2022-02-04] MEDS: hydroCHLOROthiazide 12.5 MG TABLET PO (12:50)
--- NOTE | 2022-02-04 15:19 | PC.NURSE ---
pt given lisinopril 20mg along with hydrochlorathiazide 12.[place] [id number]. unable to sign out in jan. spoke with pharmacy they were unable to fix
--- NOTE | 2022-02-04 15:28 | HO.POSTANES ---
Post Anesthesia Evaluation Post Anesthesia Evaluation Vital Signs: Vital Signs Temp Pulse Resp BP Pulse Ox 02/04/22 11:20 97.2 F 104 H 21 H 165/66 H 99 02/04/22 07:47 97.2 F 104 H 21 H 166/78 H 99 02/04/22 05:47 18 02/04/22 05:00 18 02/04/22 03:34 97.6 F 99 19 171/86 H 94 Anesthesia: Spinal and Nerve Block Mental Status: Awake Pain Control: Satisfactory Nausea/Vomiting: None Hydration: Adequate Anesthesia-Related Issues: No Anes. Related Issues
[2022-02-04] MEDS: Atorvastatin Calcium 40 MG TABLET PO (19:36)
[2022-02-05] VITALS (8 sets, daily range): BP systolic 110–168; BP diastolic 67–79; PULSE 70–102; RESP 18–20; TEMP 36.1–37.9; O2SAT 92–99
[2022-02-05] MEDS: Lactated Ringers 1,000 ML 100 ML IVCONT (00:58)
[2022-02-05] MEDS: HYDROmorphone HCl 1 MG/ML SYRINGE 0.25 MG IVPUSH ×2 (01:08→15:59)
[2022-02-05 06:38] LABS: MANUAL DIFF FLAG NO
[2022-02-05 06:52] LABS: Basophils Absolute Auto 0.1 X10*3/uL (0.0-0.2); Basophils Percent Auto 0.6 % (0-2); Eosinophils Absolute Auto 0.1 X10*3/uL (0.0-0.4); Eosinophils Percent Auto 0.7 % (0-4); Hematocrit 33.3 % (37.0-47.0); Hemoglobin 10.6 g/dl (12.0-16.0); Imm Gran Abs Auto 0.05 X10*3/uL (0.00-0.03); Imm Gran Pct Auto 0.4 % (0.0-0.4); Lymphocytes Absolute Auto 2.8 X10*3/uL (1.2-4.9); Lymphocytes Percent Auto 22.8 % (20-40); Mean Corpuscular HGB Conc 31.8 g/dl (31.0-35.0); Mean Corpuscular Hemoglobin 26.4 pg (27.0-33.0); Mean Corpuscular Volume 82.8 fL (80.0-98.0); Mean Platelet Volume 9.6 fL (9.4-12.3); Monocytes Absolute Auto 1.2 X10*3/uL (0.1-1.2); Neutrophils Absolute Auto 7.9 x10*3/uL (2.0-8.3); Neutrophils Percent Auto 65.5 % (45-73); Platelet Count 306 X10*3/uL (160-400); Red Blood Count 4.02 X10*6/uL (4.20-5.50); Red Cell Distribution Width 15.9 % (11.0-16.0); White Blood Count 12.1 X10*3/uL (4.8-10.8)
[2022-02-05 07:12] LABS: Anion Gap 14 (12-20); Blood Urea Nitrogen 6 mg/dL (9-16); Calcium 8.9 mg/dL (8.4-10.2); Carbon Dioxide 25 mmol/L (22-29); Chloride 103 mmol/L (96-108); Creatinine Clr Calc Pharmacy 108.3; Estimated Glomerular Filt Rate > 60; Glucose Fasting 107 mg/dL (60-99); Potassium 3.7 mmol/L (3.3-5.1); Sodium 138 mmol/L (135-145)
--- NOTE | 2022-02-05 07:33 | P.PNIM_ITS ---
Subjective Subjective Date of Service: 02/06/22 Interval History: f/u on HTN, s/p elective knee arthroplasty BP is high has not received meds yet Review of Systems no chest pain, no sob pain in the knee is maneageabe Physical Exam Vital Signs: Vital Signs: Last Vital Signs Temp 97.2 F 02/05/22 07:04 Pulse 70 02/05/22 07:04 Resp 20 02/05/22 07:04 BP 161/79 H 02/05/22 07:04 Pulse Ox 92 02/05/22 07:04 BMI result Body Mass Index 39.3 Const: Other: General: AO X 3, no acute distress Resp: CTA bilateral CVS: S1,S2,RRR GI: +BS, NT, no distention Skin: No rash Neuro: motor grossly intact Psych: appropriate affect Objective Data Active Medications Acetaminophen (Acetaminophen 325 Mg Tablet) 650 mg PO Q6H PRN PRN Reason: Pain, Mild (Pain Scale 1-3) Acetaminophen (Acetaminophen 325 Mg Tablet) 650 mg PO BID [facility] Last Admin: 02/04/22 19:36 Dose: 650 mg Documented by: BERNADETTE Aspirin (Aspirin 325 Mg Tablet) 325 mg PO BID [facility] Last Admin: 02/04/22 19:37 Dose: 325 mg Documented by: BERNADETTE Atorvastatin Calcium (Atorvastatin Calcium 40 Mg Tablet) 40 mg PO BEDTIME [facility] Last Admin: 02/04/22 19:36 Dose: 40 mg Documented by: BERNADETTE Docusate Sodium (Docusate Sodium 100 Mg Capsule) 100 mg PO BID [facility] Last Admin: 02/04/22 19:37 Dose: 100 mg Documented by: BERNADETTE Hydrochlorothiazide (Hydrochlorothiazide 12.5 Mg Tablet) 12.5 mg PO DAILY [facility] Hydromorphone HCl (Hydromorphone Hcl 1 Mg/Ml Syringe) 0.25 mg IVPUSH Q4H PRN; Protocol PRN Reason: Pain, Severe (Pain Scale 7-10) Last Admin: 02/05/22 01:08 Dose: 0.25 mg Documented by: KEREN Lisinopril (Lisinopril 20 Mg Tablet) 20 mg PO DAILY [facility] Omeprazole (Omeprazole 20 Mg Capsule.Dr) 20 mg PO DAILY [facility] Last Admin: 02/04/22 10:50 Dose: 20 mg Documented by: HO.YOUB Ondansetron HCl (Ondansetron Hcl 4 Mg/2 Ml Vial) 4 mg IVPUSH Q8H PRN PRN Reason: Nausea and Vomiting Oxycodone HCl (Oxycodone Hcl Er 10 Mg Tab.Er.12h) 10 mg PO BID [facility] Last Admin: 02/04/22 19:38 Dose: 10 mg Documented by: BERNADETTE Oxycodone HCl (Oxycodone Hcl Immed Release 5 Mg Tablet) 10 mg PO Q4H PRN PRN Reason: Pain, Moderate (Pain Scale 4-6 Last Admin: 02/04/22 21:13 Dose: 10 mg Documented by: BERNADETTE Sodium Chloride (0.9 % Sodium Chloride Flush 3 Ml Syringe) 3 ml IVFLUSH QSHIFT [facility] Last Admin: 02/05/22 00:21 Dose: Not Given Documented by: KEREN Non-Admin Reason: IV Running Labs CBC & Chem 7: 02/06/22 05:29 02/06/22 05:29 Labs: Laboratory Results - last 24 hr 02/05/22 02/05/22 06:27 06:27 MCV 82.8 MCH 26.4 L MCHC 31.8 RDW 15.9 Plt Count 306 MPV 9.6 Immature Gran % (Auto) 0.4 Neut % (Auto) 65.5 Lymph % (Auto) 22.8 [place] % (Auto) 10.0 Eos % (Auto) 0.7 Baso % (Auto) 0.6 Lymph # (Auto) 2.8 [place] # (Auto) 1.2 Eos # (Auto) 0.1 Baso # (Auto) 0.1 Abs Immat Gran (auto) 0.05 H Absolute Neuts (auto) 7.9 Absolute Nucleated RBC 0.000 Nucleated RBC % (auto) 0.0 Anion Gap 14 Estim Creat Clear Calc 108.3 Estimated GFR > 60 Fasting Glucose 107 H Calcium 8.9 Assessment and Plan (1) High cholesterol: Status: Acute (2) HTN (hypertension): Status: Acute (3) GERD (gastroesophageal reflux disease): Status: Acute Plan 56-year-old female with hypertension, hyperlipidemia, GERD, osteoarthritis of the knee who had a right knee arthroplasty today 1/HTN--continue home meds, BP a bit high this morning before her meds 2/HLD--Simvastatin or formulary exchange 3/GERD--omeprazol 4/obesity--weight loss advised 5/s/p right knee arthroplasty--management per ortho ASA for DVT prop medically ok to discharge Quality Stroke Does the patient have a stroke diagnosis?: No VTE Prior VTE?: No VTE Risk Level:: Surgical - very high VTE Device Contraindication: N/A - Device Ordered VTE Drug Contraindication: N/A - Med Ordered
[2022-02-05] MEDS: 0.9 % Sodium Chloride Flush 3 ML SYRINGE IVFLUSH ×3 (08:40→20:00)
[2022-02-05] MEDS: hydroCHLOROthiazide 12.5 MG TABLET PO (08:40)
[2022-02-05] MEDS: Aspirin 325 MG TABLET PO ×2 (08:41→19:59)
[2022-02-05] MEDS: Omeprazole 20 MG CAPSULE.DR PO (08:41)
[2022-02-05] MEDS: Acetaminophen 325 MG TABLET 650 MG PO ×2 (08:41→19:59)
[2022-02-05] MEDS: oxyCODONE HCl ER 10 MG TAB.ER.12H PO ×2 (08:42→21:23)
[2022-02-05] MEDS: lisinopriL 20 MG TABLET PO (08:42)
[2022-02-05] MEDS: Docusate Sodium 100 MG CAPSULE PO ×2 (08:42→20:00)
--- NOTE | 2022-02-05 10:21 | PM.PNORT ---
Subjective Subjective Date of Service: 02/05/22 Interval history: Postop day 2 status post right total knee arthroplasty No overnight events She is work hip physical therapy and doing well. No concerns today. Still continuing to manage her pain. Physical Exam Vital Signs: Vital Signs: Last Vital Signs Temp 97.2 F 02/05/22 07:04 Pulse 70 02/05/22 07:04 Resp 20 02/05/22 07:04 BP 161/79 H 02/05/22 07:04 Pulse Ox 92 02/05/22 07:04 BMI result Body Mass Index 39.3 Const: General: cooperative, healthy appearing and no acute distress Resp: Effort & Inspection: normal respiratory effort and able to speak in complete sentences Cardio: Rate: regular rate Peripheral pulses: Peripheral pulses 2+ throughout GI: Palpation (GI): Soft to palpation Skin: General skin exam: no rashes or lesions noted Extrem: Other: Right knee incision clean dry and intact. [place] intact. Calf supple nontender. Procedures Date of Service Date of Service: 02/05/22 Progress Note: A&P Assessment and plan (1) Status post right knee replacement: Status: Acute Assessment and Plan: Continue pain mgmnt Continue Aspirin for dvt ppx begin PT for RT TKA Dispo planning-PT and pain contol Fall Risk Details Current Medications: Current Medications Acetaminophen (Acetaminophen 325 Mg Tablet) 650 mg PO Q6H PRN PRN Reason: Pain, Mild (Pain Scale 1-3) Acetaminophen (Acetaminophen 325 Mg Tablet) 650 mg PO BID [facility] Last Admin: 02/05/22 08:41 Dose: 650 mg Documented by: Aspirin (Aspirin 325 Mg Tablet) 325 mg PO BID [facility] Last Admin: 02/05/22 08:41 Dose: 325 mg Documented by: Atorvastatin Calcium (Atorvastatin Calcium 40 Mg Tablet) 40 mg PO BEDTIME [facility] Last Admin: 02/04/22 19:36 Dose: 40 mg Documented by: Docusate Sodium (Docusate Sodium 100 Mg Capsule) 100 mg PO BID [facility] Last Admin: 02/05/22 08:42 Dose: 100 mg Documented by: Hydrochlorothiazide (Hydrochlorothiazide 12.5 Mg Tablet) 12.5 mg PO DAILY [facility] Last Admin: 02/05/22 08:40 Dose: 12.5 mg Documented by: Hydromorphone HCl (Hydromorphone Hcl 1 Mg/Ml Syringe) 0.25 mg IVPUSH Q4H PRN; Protocol PRN Reason: Pain, Severe (Pain Scale 7-10) Last Admin: 02/05/22 01:08 Dose: 0.25 mg Documented by: Lisinopril (Lisinopril 20 Mg Tablet) 20 mg PO DAILY [facility] Last Admin: 02/05/22 08:42 Dose: 20 mg Documented by: Omeprazole (Omeprazole 20 Mg Capsule.Dr) 20 mg PO DAILY [facility] Last Admin: 02/05/22 08:41 Dose: 20 mg Documented by: Ondansetron HCl (Ondansetron Hcl 4 Mg/2 Ml Vial) 4 mg IVPUSH Q8H PRN PRN Reason: Nausea and Vomiting Oxycodone HCl (Oxycodone Hcl Er 10 Mg Tab.Er.12h) 10 mg PO BID [facility] Last Admin: 02/05/22 08:42 Dose: 10 mg Documented by: Oxycodone HCl (Oxycodone Hcl Immed Release 5 Mg Tablet) 10 mg PO Q4H PRN PRN Reason: Pain, Moderate (Pain Scale 4-6 Last Admin: 02/04/22 21:13 Dose: 10 mg Documented by: Sodium Chloride (0.9 % Sodium Chloride Flush 3 Ml Syringe) 3 ml IVFLUSH QSHIFT [facility] Last Admin: 02/05/22 08:40 Dose: 3 ml Documented by: Time Spent With Patient Time: Total time spent is greater than 50% in coordination of care (as documented) at patient's floor/unit and/or counseling patient: Quality Stroke Does the patient have a stroke diagnosis?: No VTE Prior VTE?: No VTE Risk Level:: Surgical - very high VTE Device Contraindication: N/A - Device Ordered VTE Drug Contraindication: N/A - Med Ordered
[2022-02-05] MEDS: oxyCODONE HCl Immed Release 5 MG TABLET 10 MG PO ×2 (11:55→18:46)
[2022-02-05] MEDS: Atorvastatin Calcium 40 MG TABLET PO (20:00)
[2022-02-06] MEDS: oxyCODONE HCl Immed Release 5 MG TABLET 10 MG PO ×2 (01:25→08:13)
[2022-02-06 03:46] VITALS: BP 163/78; PULSE 99; RESP 19; TEMP 36.6; O2SAT 97
[2022-02-06] MEDS: HYDROmorphone HCl 1 MG/ML SYRINGE 0.25 MG IVPUSH (05:05)
[2022-02-06 06:01] LABS: MANUAL DIFF FLAG NO
[2022-02-06 06:08] LABS: Basophils Absolute Auto 0.1 X10*3/uL (0.0-0.2); Basophils Percent Auto 0.5 % (0-2); Eosinophils Absolute Auto 0.8 X10*3/uL (0.0-0.4); Eosinophils Percent Auto 6.6 % (0-4); Hemoglobin 10.8 g/dl (12.0-16.0); Imm Gran Abs Auto 0.07 X10*3/uL (0.00-0.03); Imm Gran Pct Auto 0.6 % (0.0-0.4); Lymphocytes Absolute Auto 2.3 X10*3/uL (1.2-4.9); Lymphocytes Percent Auto 18.9 % (20-40); Mean Corpuscular HGB Conc 31.8 g/dl (31.0-35.0); Mean Corpuscular Volume 81.9 fL (80.0-98.0); Mean Platelet Volume 9.6 fL (9.4-12.3); Monocytes Absolute Auto 1.1 X10*3/uL (0.1-1.2); Neutrophils Absolute Auto 7.7 x10*3/uL (2.0-8.3); Neutrophils Percent Auto 64.4 % (45-73); Platelet Count 329 X10*3/uL (160-400); Red Blood Count 4.15 X10*6/uL (4.20-5.50); White Blood Count 11.9 X10*3/uL (4.8-10.8)
[2022-02-06 06:28] LABS: Anion Gap 15 (12-20); Blood Urea Nitrogen 6 mg/dL (9-16); Calcium 8.6 mg/dL (8.4-10.2); Carbon Dioxide 25 mmol/L (22-29); Chloride 103 mmol/L (96-108); Estimated Glomerular Filt Rate > 60; Glucose Fasting 96 mg/dL (60-99); Potassium 3.8 mmol/L (3.3-5.1); Sodium 139 mmol/L (135-145)
[2022-02-06 07:02] VITALS: BP 133/56; PULSE 99; RESP 20; TEMP 36.6; O2SAT 96
--- NOTE | 2022-02-06 08:05 | P.DS_ITS ---
DS: Providers Provider Date of Service: 02/06/22 Date of admission: 02/03/22 08:07 Primary care physician: Stefan Sandoval MD Consults: 02/03/22 16:24 Consult to Hospitalist Routine Consulting Provider: Hospitalist Reason For Exam: medical management DS: Diagnosis Discharge Diagnosis (1) Status post right knee replacement: Status: Acute DS: Summary Hospital Course Hospital Course: The patient underwent a successful right knee arthroplasty, was transferred to PACU and then to the floor to recover. During their stay, their vitals were stable, afebrile at 98.0. Labs were unremarkable, H/H 10.8/34.0 . POD 1 she was started on ASA for DVT ppx, they also received services twice a day. Prior to discharge, their dressing was change, incision clean dry and intact, new Aquacel dressing applied and the plan was to be discharged home with vna svs Time Spent with Patient Time attestation: Total time spent providing and/or coordinating discharge services: Discharge coordination time: Less than 30 minutes Quality: Stroke Does the patient have a stroke diagnosis?: No Physical Exam Vital Signs: Vital Signs: Last Vital Signs Temp 98 F 02/06/22 07:02 Pulse 99 02/06/22 07:02 Resp 20 02/06/22 07:02 BP 133/56 L 02/06/22 07:02 Pulse Ox 96 02/06/22 07:02 BMI result Body Mass Index 39.3 Const: General: cooperative, healthy appearing and no acute distress Resp: Effort & Inspection: normal respiratory effort and able to speak in complete sentences Cardio: Rate: regular rate Peripheral pulses: Peripheral pulses 2+ throughout GI: Palpation (GI): Soft to palpation Skin: General skin exam: no rashes or lesions noted Extrem: Other: incision clean dry and intact. [place] intact. No erythema or joint effusion. Calf supple nontender. Neurovascularly intact. DS: Data Data Completed and Pending Completed studies during hospitalization [Text1]: Pending at discharge 02/03/22 10:33 Surgical [PTH] Routine Labs on day of discharge: Laboratory Results - last 24 hr 02/06/22 02/06/22 05:29 05:29 WBC 11.9 H RBC 4.15 L Hgb 10.8 L Hct 34.0 L MCV 81.9 MCH 26.0 L MCHC 31.8 RDW 16.0 Plt Count 329 MPV 9.6 Immature Gran % (Auto) 0.6 H Neut % (Auto) 64.4 Lymph % (Auto) 18.9 L [place] % (Auto) 9.0 Eos % (Auto) 6.6 H Baso % (Auto) 0.5 Lymph # (Auto) 2.3 [place] # (Auto) 1.1 Eos # (Auto) 0.8 H Baso # (Auto) 0.1 Abs Immat Gran (auto) 0.07 H Absolute Neuts (auto) 7.7 Absolute Nucleated RBC 0.000 Nucleated RBC % (auto) 0.0 Sodium 139 Potassium 3.8 Chloride 103 Carbon Dioxide 25 Anion Gap 15 BUN 6 L Creatinine 0.63 Estim Creat Clear Calc 110.0 Estimated GFR > 60 Fasting Glucose 96 Calcium 8.6 Discharge Plan Discharge Patient Disposition: Home Health Service Discharge Diagnosis: s/p RTKA Referrals: Caity Bolivar, TOM [Physician Importer Or Exporter] - 1 Week (02/19/22 at 1:00pm) Discharge Medications: New acetaminophen 325 mg Tablet 650 mg PO Q6H PRN (Reason: Pain, Mild (Pain Scale 1-3)) 30 Days Qty: 240 0RF aspirin 325 mg Tablet 325 mg PO BID 42 Days Qty: 84 0RF oxycodone 10 mg tablet 10 mg PO Q4H PRN (Reason: Pain, Moderate (Pain Scale 4-6) 7 Days Qty: 42 0RF docusate sodium 100 mg Capsule 100 mg PO BID 30 Days Qty: 60 0RF Continued diclofenac sodium 75 mg tablet,delayed release (DR/EC) 75 mg PO BID 30 Days Qty: 60 3RF ibuprofen 200 mg Capsule 800 mg PO Q8H PRN (Reason: Pain) 0RF naproxen sodium [Aleve] 220 mg Capsule 440 mg PO Q12H PRN (Reason: Pain) 0RF simvastatin 80 mg tablet 80 mg PO QPM 0RF omeprazole 20 mg capsule,delayed release(DR/EC) 20 mg PO DAILY 0RF lisinopril-hydrochlorothiazide 20-12.5 mg tablet 1 tab PO DAILY 0RF Discontinued acetaminophen [Tylenol Extended Release] 650 mg Tablet Extended Release 1,300 mg PO Q12H 0RF Discharge Orders: Discharge Order (Routine); Ordered 02/06/22 Ordered By: Ta-Helen Meuse Diet: advance to usual diet Activity on Discharge: Use cane or walker Stand Alone Forms: Patient Portal Discharge page Care Plan Goals: Restore fxn to RT knee Health Concerns: None Plan of Treatment: Physical Therapy for ROM 0-120, quad strength, gait training. Use walker for ambulation Limit stair climbing, No shower, No tub bath, No driving Continue anticoagulant Keep Aquacel dressing clean, dry and intact. Follow up with orthopedics in 2 weeks Assessment: Stable for D/C
[2022-02-06] MEDS: lisinopriL 20 MG TABLET PO (08:14)
[2022-02-06] MEDS: Omeprazole 20 MG CAPSULE.DR PO (08:14)
[2022-02-06] MEDS: hydroCHLOROthiazide 12.5 MG TABLET PO (08:14)
[2022-02-06] MEDS: oxyCODONE HCl ER 10 MG TAB.ER.12H PO (08:14)
[2022-02-06] MEDS: Docusate Sodium 100 MG CAPSULE PO (08:14)
[2022-02-06] MEDS: Aspirin 325 MG TABLET PO (08:14)
[2022-02-06] MEDS: 0.9 % Sodium Chloride Flush 3 ML SYRINGE IVFLUSH (08:15)
[2022-02-06] MEDS: Acetaminophen 325 MG TABLET 650 MG PO (08:15)
--- NOTE | 2022-02-06 09:15 | P.PNIM_ITS ---
Subjective Subjective Date of Service: 02/06/22 Interval History: f/u on HTN, s/p elective knee arthroplasty BP is within normal, pain is reasonably well control Review of Systems no chest pain, no sob pain in the knee is [place] Physical Exam Vital Signs: Vital Signs: Last Vital Signs Temp 98 F 02/06/22 07:02 Pulse 99 02/06/22 07:02 Resp 20 02/06/22 07:02 BP 133/56 L 02/06/22 07:02 Pulse Ox 96 02/06/22 07:02 BMI result Body Mass Index 39.3 Const: Other: General: AO X 3, no acute distress Resp: CTA bilateral CVS: S1,S2,RRR GI: +BS, NT, no distention Skin: No rash Neuro: motor grossly intact Psych: appropriate affect Objective Data Active Medications Acetaminophen (Acetaminophen 325 Mg Tablet) 650 mg PO Q6H PRN PRN Reason: Pain, Mild (Pain Scale 1-3) Acetaminophen (Acetaminophen 325 Mg Tablet) 650 mg PO BID [facility] Last Admin: 02/06/22 08:15 Dose: 650 mg Documented by: MAMTA Aspirin (Aspirin 325 Mg Tablet) 325 mg PO BID [facility] Last Admin: 02/06/22 08:14 Dose: 325 mg Documented by: MAMTA Atorvastatin Calcium (Atorvastatin Calcium 40 Mg Tablet) 40 mg PO BEDTIME [facility] Last Admin: 02/05/22 20:00 Dose: 40 mg Documented by: VALERIE Docusate Sodium (Docusate Sodium 100 Mg Capsule) 100 mg PO BID [facility] Last Admin: 02/06/22 08:14 Dose: 100 mg Documented by: MAMTA Hydrochlorothiazide (Hydrochlorothiazide 12.5 Mg Tablet) 12.5 mg PO DAILY [facility] Last Admin: 02/06/22 08:14 Dose: 12.5 mg Documented by: MAMTA Hydromorphone HCl (Hydromorphone Hcl 1 Mg/Ml Syringe) 0.25 mg IVPUSH Q4H PRN; Protocol PRN Reason: Pain, Severe (Pain Scale 7-10) Last Admin: 02/06/22 05:05 Dose: 0.25 mg Documented by: VALERIE Lisinopril (Lisinopril 20 Mg Tablet) 20 mg PO DAILY [facility] Last Admin: 02/06/22 08:14 Dose: 20 mg Documented by: MAMTA Omeprazole (Omeprazole 20 Mg Capsule.Dr) 20 mg PO DAILY [facility] Last Admin: 02/06/22 08:14 Dose: 20 mg Documented by: MAMTA Ondansetron HCl (Ondansetron Hcl 4 Mg/2 Ml Vial) 4 mg IVPUSH Q8H PRN PRN Reason: Nausea and Vomiting Oxycodone HCl (Oxycodone Hcl Er 10 Mg Tab.Er.12h) 10 mg PO BID [facility] Last Admin: 02/06/22 08:14 Dose: 10 mg Documented by: MAMTA Oxycodone HCl (Oxycodone Hcl Immed Release 5 Mg Tablet) 10 mg PO Q4H PRN PRN Reason: Pain, Moderate (Pain Scale 4-6 Last Admin: 02/06/22 08:13 Dose: 10 mg Documented by: MAMTA Sodium Chloride (0.9 % Sodium Chloride Flush 3 Ml Syringe) 3 ml IVFLUSH QSHIFT [facility] Last Admin: 02/06/22 08:15 Dose: 3 ml Documented by: MAMTA Labs CBC & Chem 7: 02/06/22 05:29 02/06/22 05:29 Labs: Laboratory Results - last 24 hr 02/06/22 02/06/22 05:29 05:29 MCV 81.9 MCH 26.0 L MCHC 31.8 RDW 16.0 Plt Count 329 MPV 9.6 Immature Gran % (Auto) 0.6 H Neut % (Auto) 64.4 Lymph % (Auto) 18.9 L [place] % (Auto) 9.0 Eos % (Auto) 6.6 H Baso % (Auto) 0.5 Lymph # (Auto) 2.3 [place] # (Auto) 1.1 Eos # (Auto) 0.8 H Baso # (Auto) 0.1 Abs Immat Gran (auto) 0.07 H Absolute Neuts (auto) 7.7 Absolute Nucleated RBC 0.000 Nucleated RBC % (auto) 0.0 Anion Gap 15 Estim Creat Clear Calc 110.0 Estimated GFR > 60 Fasting Glucose 96 Calcium 8.6 Assessment and Plan (1) High cholesterol: Status: Acute (2) GERD (gastroesophageal reflux disease): Status: Acute (3) HTN (hypertension): Status: Acute (4) Status post right knee replacement: Status: Acute Plan 56-year-old female with hypertension, hyperlipidemia, GERD, osteoarthritis of the knee who had a right knee arthroplasty today 1/HTN--pressures were control, continue home medication. 2/HLD--Simvastatin or formulary exchange 3/GERD--omeprazole 4/obesity--weight loss advised 5/s/p right knee arthroplasty--management per ortho ASA for DVT prop Medically okay to discharge him today. Signing off Quality Stroke Does the patient have a stroke diagnosis?: No VTE Prior VTE?: No VTE Risk Level:: Surgical - very high VTE Device Contraindication: N/A - Device Ordered VTE Drug Contraindication: N/A - Med Ordered
[2022-02-06 09:47] VITALS: BP 133/56; PULSE 99; O2SAT 96
[2022-02-06 11:02] VITALS: BP 114/59; PULSE 97; RESP 18; TEMP 36.1; O2SAT 95
--- NOTE | 2022-02-06 11:14 | MHC.CM.PN ---
PT WILL DC HOME TODAY WITH [facility] CHANCE FOR PT FAMILY TO TRANSPORT
== END 2022-02-06 13:21 | disposition home health service (06) | DRG 326 ==
LOC: HO.SSSA 08:13 → HO.S3 15:11
PROVIDERS: Physician Assistant; Admitting Provider Orthopaedic Surgery; PCP Internal Medicine Medical Oncology; Visit Provider Orthopaedic Surgery
PROC: 0SRC0J9 Replacement of Right Knee Joint with Synthetic Substitute, Cemented, Open Approach (ICD-10-PCS; CPT 27447; principal; 2022-02-03 09:40)
DX: M17.11 Unilateral primary osteoarthritis, right knee (principal); E66.9 Obesity, unspecified; I10 Essential (primary) hypertension; E78.5 Hyperlipidemia, unspecified; K21.9 Gastro-esophageal reflux disease without esophagitis; Z96.652 Presence of left artificial knee joint; Z96.643 Presence of artificial hip joint, bilateral; Z68.39 Body mass index [BMI] 39.0-39.9, adult; Z87.891 Personal history of nicotine dependence; Z88.0 Allergy status to penicillin; Z88.2 Allergy status to sulfonamides; Z79.899 Other long term (current) drug therapy
CPT/HCPCS: 36415; 73560; 80048; 85025; 86850; 86900; 86901; 87635; 87640; 87641; 88305; 88311; 97110; 97116; 97162; 97530; C1713; C1776; J0131; J0690; J1100; J1170; J2250; J2405; J3010

== ENCOUNTER → 2022-02-19 12:55 | Outpatient (BNVA) | payer OTHER, SELFPAY | PROVIDERS: PCP Internal Medicine Medical Oncology; Visit Provider Physician Assistant | DX: Z47.1 Aftercare following joint replacement surgery (principal); Z96.651 Presence of right artificial knee joint | CPT/HCPCS: 99212 ==

== ENCOUNTER → 2022-03-19 12:27 | Outpatient (BNVA) | payer OTHER, SELFPAY | PROVIDERS: PCP Internal Medicine Medical Oncology; Visit Provider Physician Assistant | DX: Z47.1 Aftercare following joint replacement surgery (principal); T81.89XD Other complications of procedures, not elsewhere classified, subsequent encounter; Z18.9 Retained foreign body fragments, unspecified material; Z96.651 Presence of right artificial knee joint | CPT/HCPCS: 99212 ==

== ENCOUNTER → 2022-03-27 14:16 | Outpatient (BNVA) | payer OTHER, SELFPAY | PROVIDERS: PCP Internal Medicine Medical Oncology; Visit Provider Physician Assistant | DX: Z47.1 Aftercare following joint replacement surgery (principal); T81.89XD Other complications of procedures, not elsewhere classified, subsequent encounter; Z96.651 Presence of right artificial knee joint | CPT/HCPCS: 99212 ==

== ENCOUNTER → 2022-04-02 09:05 | Outpatient (BNVA) | payer OTHER, SELFPAY | PROVIDERS: PCP Internal Medicine Medical Oncology; Visit Provider Physician Assistant | DX: Z47.1 Aftercare following joint replacement surgery (principal); Z96.651 Presence of right artificial knee joint | CPT/HCPCS: 99212 ==

== ENCOUNTER 2022-04-08 11:00 | Outpatient (RCR) | payer OTHER, SELFPAY ==
--- NOTE | 2022-02-19 13:59 | MHC.PT.EP ---
[facility] [place] Office [place] [facility] [place] [facility] [address] Aisha Peres [address] [phone] F: [phone] F: [phone] F: [phone] F: [phone] Physical Therapy Plan of Care Date of Evaluation: Date of Surgery: 02/03/22 Diagnosis: Assessment: pt presents for first post-operative follow-up at the orthopedic office following R TKA on 02/03/22. pt presents to physical therapy with pain, decreased range of motion, decreased strength, impaired functional mobility, impaired postural awareness, and gait deviations. pt is a good candidate for skilled PT due to age, potential remediation of impairments, typical disease/condition progression and prognosis, comorbidities, and motivation. pt would benefit from tailored strengthening and stretching exercise program, functional training, gait training, postural re-training, neuromuscular re-education, modalities as needed for pain, equipment safety demonstration. Frequency and Duration: The patient will be seen 2x/wk for 8 wks Short Term Goals: Pt will be I w/ HEP and symptom self-management to promote self-management of post-operative status. Pt will be mod I w/ ascending/descending curb/step w/ proper sequencing using LRAD to promote access to home and community for social participation. Senior Living Goals: Pt will report a statistically significant improvement in self-reported outcome measure, LEFI, to promote return to PLOF. pt will be mod I w/ ascending/descending 13 stairs using LRAD to promote access to primary living spaces within the home. Treatment Plan: Modalities to reduce pain, spasms and effusion. Manual therapy to restore motion and function. Therapeutic exercise to improve strength and flexibility. Neuromuscular re-education for posture and balance. Therapeutic activities to return to functional activities of daily living. Electronically signed by: Joana Seth PT, DPT Please sign and return to therapist. Thank you for your referral.
== END 2022-05-13 13:50 | disposition home or self-care (01) ==
LOC: HO.PTCHIC 11:00
PROVIDERS: Visit Provider Physician Assistant
DX: Z96.651 Presence of right artificial knee joint (principal)
CPT/HCPCS: 97110; 97116; 97161; 97530

== ENCOUNTER → 2022-04-21 10:00 | Outpatient (REF) | payer OTHER, SELFPAY ==
--- NOTE | 2022-04-21 10:06 | CA_ITS ---
Acquisition Time: 2022-04-21 10:11:08 Total Exercise Time: 00:02:03 Test Indications: HTN Medications: SEE CHART Protocol: SOHEILA Max HR: 155 BPM 93% of Pred: 165 BPM Max BP: 178/080 mmHG Max Work Load: 4.6 METS Exercise stress test with exercise 2 min 3 sec of Soheila protocol, achieving 92% MPHR, with moderate shortness of breath, no chest discomfort, without arrythia, with brisk chronotropic response ( achieving 85% MPHR at 1 min 16 sec of exercise), with normotensive response to exercise, without EKG changes meeting criteria for ischemia at acheived workload, with significant decrease in exercise capacity. Test reviewed with Dr Purvis. Message sent to Dr. Sandoval with report and recommendation for pharmacological nuclear stress test to further evaluation for ischemia is needed Referred By: Stefan Sandoval Overread By: ARMANI MEDINA
== END ==
LOC: HO.CARD 10:00
PROVIDERS: PCP Internal Medicine Medical Oncology; Visit Provider Internal Medicine Medical Oncology
DX: R07.9 Chest pain, unspecified (principal); I10 Essential (primary) hypertension
CPT/HCPCS: 93017

== ENCOUNTER 2022-05-08 10:10 | Outpatient (REF) | payer OTHER, SELFPAY ==
--- NOTE | ~2022-05-08 | XR_ITS ---
EXAMINATION: XR PELVIS CLINICAL INFORMATION: Pain COMPARISON: None TECHNIQUE: AP view of the pelvis. FINDINGS: There are bilateral hip replacements. No fracture, dislocation or x-ray evidence of loosening is there soft tissue calcifications adjacent to the lateral left hip joint. Bones of the pelvis are normal. There are degenerative changes of the visualized lower lumbar spine. XR/XR pelvis 1-2V IMPRESSION: Satisfactory appearance of bilateral hip replacements.
--- NOTE | ~2022-05-08 | XR_ITS ---
EXAMINATION: KNEE X-RAY CLINICAL INFORMATION: Knee replacement COMPARISON: Previous x-ray most recent January 2022 and October 2021 TECHNIQUE: Standing AP view of both knees and lateral and sunrise view of the right knee FINDINGS: Right knee: There is a 3 component hinged right knee replacement in satisfactory position. No fracture or dislocation is seen. There is stable partially calcified intramedullary lesion in the distal right femoral shaft probably representing an enchondroma. This appears stable. There is a joint effusion. Standing AP view of the left knee demonstrates a change left knee replacement in satisfactory position. XR/XR knee standing BI IMPRESSION: Right: Satisfactory appearance of the knee replacement. Joint effusion. Stable probable distal femoral shaft enchondroma. Stable appearance of left knee replacement.
--- NOTE | ~2022-05-08 | XR_ITS ---
EXAMINATION: KNEE X-RAY CLINICAL INFORMATION: Knee replacement COMPARISON: Previous x-ray most recent January 2022 and October 2021 TECHNIQUE: Standing AP view of both knees and lateral and sunrise view of the right knee FINDINGS: Right knee: There is a 3 component hinged right knee replacement in satisfactory position. No fracture or dislocation is seen. There is stable partially calcified intramedullary lesion in the distal right femoral shaft probably representing an enchondroma. This appears stable. There is a joint effusion. Standing AP view of the left knee demonstrates a change left knee replacement in satisfactory position. XR/XR knee RT 2V IMPRESSION: Right: Satisfactory appearance of the knee replacement. Joint effusion. Stable probable distal femoral shaft enchondroma. Stable appearance of left knee replacement.
== END 2022-05-08 10:11 | disposition home or self-care (01) ==
LOC: HO.HOSX 10:10
PROVIDERS: Visit Provider Orthopaedic Surgery
DX: Z47.1 Aftercare following joint replacement surgery (principal); Z96.651 Presence of right artificial knee joint; Z96.643 Presence of artificial hip joint, bilateral
CPT/HCPCS: 72170; 73560; 73565; 99212; J1100

== ENCOUNTER → 2022-06-01 09:57 | Outpatient (REF) | payer OTHER, SELFPAY ==
--- NOTE | 2022-06-01 | CA_ITS ---
Acquisition Time: 2022-06-01 10:15:28 Total Exercise Time: 00:02:00 Test Indications: HYPERLIPIDEMIA Medications: SEE CHART Protocol: LEXISCAN Max HR: 116 BPM 70% of Pred: 165 BPM Max BP: 142/086 mmHG Max Work Load: 1.0 METS Pharmacological stress test with Lexiscan injection, while sitting and kicking her legs, without anginal symptoms, without arrythmia, with normotensive response to injection, with nondiagnostic EKG for ischemia. Nuclear images pending. Test reviewed with Dr Fuller Referred By: Stefan Sandoval Overread By: ARMANI MEDINA
--- NOTE | ~2022-06-01 | NM_ITS ---
Myocardial perfusion study Indication: Chest pain with prior suboptimal regular treadmill stress test Technique: The patient was brought in for a Lexiscan perfusion study on 06/01/2022. Patient performed low-level exercise and was injected 0.4 mg of Lexiscan intravenously. Within a minute of injection, 25 mCi of sestamibi was given intravenously. Images were obtained using the SPECT gamma camera interlaced with the gating device. Images were obtained in supine position. Resting perfusion study was performed on 06/03/2022. Patient was administered 25 mCi of sestamibi intravenously at rest. Images were then obtained in supine position. Images obtained with and without CT attenuation. Total DLP 169 mGy-cm. Images were processed with the software and compared side to side in short axis, horizontal long axis and vertical long axis views. Findings: The stress perfusion study showed non attenuated images show mildly reduced uptake in the entire lateral wall of the LV myocardium and moderately reduced uptake in the apex. Overall findings diffuse. Attenuation corrected images show normal uptake of radiotracer in all segments of LV myocardium.. The gated study shows normal LV systolic function with calculated LVEF of 76%. LV cavity is normal size. The gated study shows normal systolic wall thickening and contraction of segments. Resting study shows attenuated corrected images show normal uptake of radiotracer in all myocardium. Gating at rest reveals normal systolic wall motion with ejection fraction at 70%. The findings are consistent with likely normal myocardial perfusion. NM/NM chloe perf SPECT rest & str Impression: 1. Myocardial perfusion imaging study shows likely normal myocardial perfusion 2. Gated LVEF is 70% 3. Transient ischemic dilatation not present EKG is nondiagnostic for ischemia
== END ==
LOC: HO.CARD 09:57
PROVIDERS: PCP Internal Medicine Medical Oncology; Visit Provider Internal Medicine Medical Oncology
DX: I99.8 Other disorder of circulatory system (principal); E78.5 Hyperlipidemia, unspecified
CPT/HCPCS: 78452; 93017; A9500; J0280; J2785

== ENCOUNTER → 2022-07-06 11:07 | Outpatient (BNVA) | payer OTHER, SELFPAY | PROVIDERS: PCP Internal Medicine Medical Oncology; Visit Provider Orthopaedic Surgery | DX: M25.561 Pain in right knee (principal); Z96.651 Presence of right artificial knee joint; Z96.643 Presence of artificial hip joint, bilateral | CPT/HCPCS: 99212 ==

== ENCOUNTER 2022-10-29 09:39 | Outpatient (REF) | payer OTHER, SELFPAY ==
[2022-10-29 11:26] LABS: MANUAL DIFF FLAG NO
[2022-10-29 11:46] LABS: Basophils Absolute Auto 0.1 X10*3/uL (0.0-0.2); Basophils Percent Auto 0.6 % (0-2); Eosinophils Absolute Auto 0.3 X10*3/uL (0.0-0.4); Eosinophils Percent Auto 3.6 % (0-4); Hematocrit 41.9 % (37.0-47.0); Imm Gran Abs Auto 0.04 X10*3/uL (0.00-0.03); Imm Gran Pct Auto 0.5 % (0.0-0.4); Lymphocytes Absolute Auto 2.9 X10*3/uL (1.2-4.9); Lymphocytes Percent Auto 33.4 % (20-40); Mean Corpuscular Hemoglobin 24.3 pg (27.0-33.0); Mean Corpuscular Volume 78.3 fL (80.0-98.0); Mean Platelet Volume 9.5 fL (9.4-12.3); Monocytes Absolute Auto 0.6 X10*3/uL (0.1-1.2); Monocytes Percent Auto 7.3 % (2-11); Neutrophils Absolute Auto 4.7 x10*3/uL (2.0-8.3); Neutrophils Percent Auto 54.6 % (45-73); Platelet Count 416 X10*3/uL (160-400); Red Blood Count 5.35 X10*6/uL (4.20-5.50); Red Cell Distribution Width 16.7 % (11.0-16.0); White Blood Count 8.7 X10*3/uL (4.8-10.8)
[2022-10-29 13:55] LABS: Alanine Aminotransferase 23 U/L (0-31); Albumin Level 4.4 g/dL (3.5-5.0); Alkaline Phosphatase 95 U/L (39-117); Anion Gap 13 (12-20); Aspartate Amino Transferase 37 U/L (5-31); Bilirubin Total 0.4 mg/dL (0.0-1.0); Blood Urea Nitrogen 9 mg/dL (9-16); Calcium 9.8 mg/dL (8.4-10.2); Carbon Dioxide 27 mmol/L (22-29); Chloride 106 mmol/L (96-108); Cholesterol 179 mg/dL; Estimated Glomerular Filt Rate > 60; Glucose Fasting 104 mg/dL (60-99); HDL Cholesterol 41 mg/dL; LDL Cholesterol Calculated 102 mg/dl; Potassium 4.3 mmol/L (3.3-5.1); Sodium 142 mmol/L (135-145); Total Protein 7.1 g/dL (6.5-8.0); Triglycerides 181 mg/dL
== END 2022-10-29 09:40 | disposition home or self-care (01) ==
LOC: HO.HMGCLDS 09:39
PROVIDERS: PCP Internal Medicine Medical Oncology; Visit Provider Internal Medicine Medical Oncology
DX: Z00.00 Encounter for general adult medical examination without abnormal findings (principal); E78.5 Hyperlipidemia, unspecified
CPT/HCPCS: 36415; 80053; 80061; 85025

== ENCOUNTER 2022-11-19 11:20 | Outpatient (REF) | payer OTHER, SELFPAY ==
--- NOTE | ~2022-11-19 | MM_ITS ---
EXAMINATION: MM SCREENING DIGITAL BREAST TOMOSYNTHESIS, BILATERAL CLINICAL INFORMATION: Screening. Asymptomatic. The lifetime risk of breast cancer based on the Tyrer-Cuzick Model is 8%. COMPARISON: Mammography: 03/12/2021, 11/09/2019, 10/04/2017 TECHNIQUE: Digital breast tomosynthesis is performed in both the craniocaudal and mediolateral oblique views along with computer-aided detection (CAD). Synthesized 2D images are generated from the tomosynthesis. Additional right cleavage view is provided. FINDINGS: The breasts are almost entirely fatty (ACR BI-RADS breast composition Category a). There are no significant masses, abnormal calcifications, or other abnormalities. No developing density or architectural abnormality. Skin contours are smooth. No significant changes. MM/MM tomosynthesis screening BI IMPRESSION: No mammographic evidence of malignancy. ASSESSMENT: BI-RADS 1: Negative RECOMMENDATION: Routine annual mammography screening. This patient's information was entered into a reminder system with a target due date for their next mammogram.
== END 2022-11-19 11:21 | disposition home or self-care (01) ==
LOC: HO.MAMMO 11:20
PROVIDERS: PCP Internal Medicine Medical Oncology; Visit Provider Internal Medicine Medical Oncology
DX: Z12.31 Encounter for screening mammogram for malignant neoplasm of breast (principal)
CPT/HCPCS: 77063; 77067

== ENCOUNTER 2023-02-22 10:51 | Outpatient (REF) | payer OTHER, SELFPAY ==
[2023-02-22 13:49] LABS: MANUAL DIFF FLAG NO
[2023-02-22 13:59] LABS: Basophils Absolute Auto 0.1 X10*3/uL (0.0-0.2); Basophils Percent Auto 0.7 % (0-2); Eosinophils Absolute Auto 0.3 X10*3/uL (0.0-0.4); Hematocrit 40.3 % (37.0-47.0); Hemoglobin 12.8 g/dl (12.0-16.0); Imm Gran Abs Auto 0.04 X10*3/uL (0.00-0.03); Imm Gran Pct Auto 0.5 % (0.0-0.4); Lymphocytes Absolute Auto 2.4 X10*3/uL (1.2-4.9); Lymphocytes Percent Auto 28.9 % (20-40); Mean Corpuscular HGB Conc 31.8 g/dl (31.0-35.0); Mean Corpuscular Hemoglobin 24.9 pg (27.0-33.0); Mean Corpuscular Volume 78.4 fL (80.0-98.0); Mean Platelet Volume 10.5 fL (9.4-12.3); Monocytes Absolute Auto 0.6 X10*3/uL (0.1-1.2); Monocytes Percent Auto 7.7 % (2-11); Neutrophils Absolute Auto 4.9 x10*3/uL (2.0-8.3); Neutrophils Percent Auto 58.2 % (45-73); Platelet Count 355 X10*3/uL (160-400); Red Blood Count 5.14 X10*6/uL (4.20-5.50); Red Cell Distribution Width 17.3 % (11.0-16.0); White Blood Count 8.4 X10*3/uL (4.8-10.8)
[2023-02-22 14:16] LABS: Alanine Aminotransferase 22 U/L (0-31); Albumin Level 4.1 g/dL (3.5-5.0); Alkaline Phosphatase 96 U/L (39-117); Anion Gap 13 (12-20); Aspartate Amino Transferase 37 U/L (5-31); Bilirubin Total 0.6 mg/dL (0.0-1.0); Blood Urea Nitrogen 14 mg/dL (9-16); Calcium 9.3 mg/dL (8.4-10.2); Carbon Dioxide 26 mmol/L (22-29); Chloride 109 mmol/L (96-108); Cholesterol 205 mg/dL; Estimated Glomerular Filt Rate > 60; Glucose Fasting 109 mg/dL (60-99); HDL Cholesterol 35 mg/dL; LDL Cholesterol Calculated 125 mg/dl; Potassium 4.2 mmol/L (3.3-5.1); Sodium 144 mmol/L (135-145); Total Protein 6.7 g/dL (6.5-8.0); Triglycerides 228 mg/dL
== END 2023-02-22 10:52 | disposition home or self-care (01) ==
LOC: HO.HMGCLDS 10:51
PROVIDERS: PCP Internal Medicine Medical Oncology; Visit Provider Internal Medicine Medical Oncology
DX: E78.5 Hyperlipidemia, unspecified (principal); E66.9 Obesity, unspecified; I10 Essential (primary) hypertension
CPT/HCPCS: 36415; 80053; 80061; 85025

== ENCOUNTER 2023-03-17 12:00 | Outpatient (REF) | payer OTHER, SELFPAY ==
[2023-03-17 13:59] LABS: MANUAL DIFF FLAG NO
[2023-03-17 14:27] LABS: Basophils Absolute Auto 0.1 X10*3/uL (0.0-0.2); Basophils Percent Auto 0.5 % (0-2); Eosinophils Absolute Auto 0.3 X10*3/uL (0.0-0.4); Eosinophils Percent Auto 3.3 % (0-4); Hematocrit 41.7 % (37.0-47.0); Hemoglobin 13.1 g/dl (12.0-16.0); Imm Gran Abs Auto 0.04 X10*3/uL (0.00-0.03); Imm Gran Pct Auto 0.4 % (0.0-0.4); Immature Retic Fraction 14.1 % (3.0-15.9); Lymphocytes Absolute Auto 2.2 X10*3/uL (1.2-4.9); Lymphocytes Percent Auto 21.2 % (20-40); Mean Corpuscular HGB Conc 31.4 g/dl (31.0-35.0); Mean Corpuscular Hemoglobin 25.2 pg (27.0-33.0); Mean Corpuscular Volume 80.3 fL (80.0-98.0); Mean Platelet Volume 10.5 fL (9.4-12.3); Monocytes Absolute Auto 0.7 X10*3/uL (0.1-1.2); Monocytes Percent Auto 6.8 % (2-11); Neutrophils Absolute Auto 7.1 x10*3/uL (2.0-8.3); Neutrophils Percent Auto 67.8 % (45-73); Platelet Count 378 X10*3/uL (160-400); Red Blood Count 5.19 X10*6/uL (4.20-5.50); Red Cell Distribution Width 17.1 % (11.0-16.0); Retic HGB Equivalent 30.3 pg (30.0-35.0); Reticulocyte Percent 1.5 % (0.5-1.8); Reticulocytes Absolute 0.079 X10*6/uL (0.026-0.095); White Blood Count 10.4 X10*3/uL (4.8-10.8)
[2023-03-17 19:11] LABS: Ferritin 14 ng/mL (10-250)
== END 2023-03-17 12:01 | disposition home or self-care (01) ==
LOC: HO.HMGCLDS 12:00
PROVIDERS: PCP Internal Medicine Medical Oncology; Visit Provider Internal Medicine Medical Oncology
DX: E78.5 Hyperlipidemia, unspecified (principal); D64.9 Anemia, unspecified
CPT/HCPCS: 36415; 82728; 85025; 85045

== ENCOUNTER 2023-05-21 09:56 | Outpatient (REF) | payer OTHER, SELFPAY ==
[2023-05-21 11:34] LABS: MANUAL DIFF FLAG NO
[2023-05-21 11:54] LABS: Basophils Absolute Auto 0.1 X10*3/uL (0.0-0.2); Basophils Percent Auto 0.9 % (0-2); Eosinophils Absolute Auto 0.4 X10*3/uL (0.0-0.4); Eosinophils Percent Auto 5.1 % (0-4); Hematocrit 40.9 % (37.0-47.0); Imm Gran Abs Auto 0.02 X10*3/uL (0.00-0.03); Imm Gran Pct Auto 0.2 % (0.0-0.4); Mean Corpuscular HGB Conc 31.8 g/dl (31.0-35.0); Mean Corpuscular Hemoglobin 24.9 pg (27.0-33.0); Mean Corpuscular Volume 78.2 fL (80.0-98.0); Mean Platelet Volume 10.4 fL (9.4-12.3); Monocytes Absolute Auto 0.6 X10*3/uL (0.1-1.2); Monocytes Percent Auto 7.3 % (2-11); Neutrophils Absolute Auto 4.1 x10*3/uL (2.0-8.3); Neutrophils Percent Auto 50.5 % (45-73); Platelet Count 415 X10*3/uL (160-400); Red Blood Count 5.23 X10*6/uL (4.20-5.50); Red Cell Distribution Width 17.1 % (11.0-16.0); White Blood Count 8.2 X10*3/uL (4.8-10.8)
[2023-05-21 15:10] LABS: Alanine Aminotransferase 22 U/L (0-31); Albumin Level 4.2 g/dL (3.5-5.0); Alkaline Phosphatase 84 U/L (39-117); Anion Gap 15 (12-20); Aspartate Amino Transferase 36 U/L (5-31); Bilirubin Total 0.5 mg/dL (0.0-1.0); Blood Urea Nitrogen 16 mg/dL (9-16); Calcium 9.7 mg/dL (8.4-10.2); Carbon Dioxide 21 mmol/L (22-29); Chloride 111 mmol/L (96-108); Cholesterol 233 mg/dL; Estimated Glomerular Filt Rate > 60; Glucose Fasting 99 mg/dL (60-99); HDL Cholesterol 37 mg/dL; LDL Cholesterol Calculated 150 mg/dl; Potassium 3.9 mmol/L (3.3-5.1); Sodium 143 mmol/L (135-145); Total Protein 7.3 g/dL (6.5-8.0); Triglycerides 233 mg/dL
== END 2023-05-21 09:57 | disposition home or self-care (01) ==
LOC: HO.HMGCLDS 09:56
PROVIDERS: PCP Internal Medicine Medical Oncology; Visit Provider Internal Medicine Medical Oncology
DX: E78.5 Hyperlipidemia, unspecified (principal); E66.9 Obesity, unspecified; I10 Essential (primary) hypertension
CPT/HCPCS: 36415; 80053; 80061; 85025

== ENCOUNTER 2023-07-12 10:53 | Outpatient (REF) | payer OTHER, SELFPAY ==
[2023-07-12 12:58] LABS: MANUAL DIFF FLAG NO
[2023-07-12 13:07] LABS: Basophils Absolute Auto 0.1 X10*3/uL (0.0-0.2); Basophils Percent Auto 0.7 % (0-2); Eosinophils Absolute Auto 0.4 X10*3/uL (0.0-0.4); Eosinophils Percent Auto 4.4 % (0-4); Hematocrit 41.1 % (37.0-47.0); Hemoglobin 12.9 g/dl (12.0-16.0); Imm Gran Abs Auto 0.03 X10*3/uL (0.00-0.03); Imm Gran Pct Auto 0.4 % (0.0-0.4); Lymphocytes Absolute Auto 2.5 X10*3/uL (1.2-4.9); Lymphocytes Percent Auto 29.2 % (20-40); Mean Corpuscular HGB Conc 31.4 g/dl (31.0-35.0); Mean Corpuscular Volume 79.7 fL (80.0-98.0); Mean Platelet Volume 10.2 fL (9.4-12.3); Monocytes Absolute Auto 0.6 X10*3/uL (0.1-1.2); Monocytes Percent Auto 7.2 % (2-11); Neutrophils Absolute Auto 4.9 x10*3/uL (2.0-8.3); Neutrophils Percent Auto 58.1 % (45-73); Platelet Count 380 X10*3/uL (160-400); Red Blood Count 5.16 X10*6/uL (4.20-5.50); Red Cell Distribution Width 17.3 % (11.0-16.0); White Blood Count 8.5 X10*3/uL (4.8-10.8)
[2023-07-12 13:44] LABS: Ferritin 19 ng/mL (10-250)
== END 2023-07-12 10:54 | disposition home or self-care (01) ==
LOC: HO.HMGCLDS 10:53
PROVIDERS: PCP Internal Medicine Medical Oncology; Visit Provider Internal Medicine Medical Oncology
DX: E66.9 Obesity, unspecified (principal); E61.1 Iron deficiency
CPT/HCPCS: 36415; 82728; 85025

== ENCOUNTER 2023-08-04 11:35 | Outpatient (REF) | payer OTHER, SELFPAY ==
[2023-08-04 13:24] LABS: Basophils Percent Auto 0.3 % (0-2); Eosinophils Absolute Auto 0.2 X10*3/uL (0.0-0.4); Eosinophils Percent Auto 1.7 % (0-4); Hematocrit 46.5 % (37.0-47.0); Hemoglobin 14.8 g/dl (12.0-16.0); Imm Gran Abs Auto 0.11 X10*3/uL (0.00-0.03); Imm Gran Pct Auto 0.8 % (0.0-0.4); Immature Retic Fraction 16.4 % (3.0-15.9); Lymphocytes Absolute Auto 5.3 X10*3/uL (1.2-4.9); Lymphocytes Percent Auto 38.5 % (20-40); MANUAL DIFF FLAG SCAN; Mean Corpuscular HGB Conc 31.8 g/dl (31.0-35.0); Mean Corpuscular Volume 78.5 fL (80.0-98.0); Mean Platelet Volume 9.4 fL (9.4-12.3); Monocytes Absolute Auto 1.2 X10*3/uL (0.1-1.2); Neutrophils Absolute Auto 6.8 x10*3/uL (2.0-8.3); Neutrophils Percent Auto 49.7 % (45-73); Platelet Count 426 X10*3/uL (160-400); Red Blood Count 5.92 X10*6/uL (4.20-5.50); Red Cell Distribution Width 17.8 % (11.0-16.0); Retic HGB Equivalent 31.9 pg (30.0-35.0); SCAN SMEAR FLAG 1; White Blood Count 13.7 X10*3/uL (4.8-10.8)
[2023-08-04 13:48] LABS: SLIDE REVIEW VERIFIED
[2023-08-04 14:04] LABS: Alanine Aminotransferase 20 U/L (0-31); Albumin Level 4.6 g/dL (3.5-5.0); Alkaline Phosphatase 88 U/L (39-117); Anion Gap 13 (12-20); Aspartate Amino Transferase 31 U/L (5-31); Bilirubin Total 0.4 mg/dL (0.0-1.0); Blood Urea Nitrogen 19 mg/dL (9-16); Calcium 10.3 mg/dL (8.4-10.2); Carbon Dioxide 25 mmol/L (22-29); Chloride 103 mmol/L (96-108); Estimated Glomerular Filt Rate > 60; Glucose Random 100 mg/dL (60-115); Potassium 3.2 mmol/L (3.3-5.1); Sodium 138 mmol/L (135-145); Total Protein 8.2 g/dL (6.5-8.0)
[2023-08-04 14:08] LABS: Erythrocyte Sedimentation Rate 11 MM/HR (0-20)
[2023-08-04 14:25] LABS: Ferritin 19 ng/mL (10-250)
== END 2023-08-04 11:36 | disposition home or self-care (01) ==
LOC: HO.10HDL 11:35
PROVIDERS: Visit Provider Internal Medicine Medical Oncology
DX: R10.31 Right lower quadrant pain (principal); K57.92 Diverticulitis of intestine, part unspecified, without perforation or abscess without bleeding; D50.9 Iron deficiency anemia, unspecified
CPT/HCPCS: 36415; 80053; 82728; 85025; 85045; 85652

== ENCOUNTER 2023-08-09 09:23 | Outpatient (REF) | payer OTHER, SELFPAY ==
--- NOTE | ~2023-08-09 | CT_ITS ---
EXAMINATION: CT ABDOMEN AND PELVIS WITH CONTRAST CLINICAL INFORMATION: Right lower quadrant pain COMPARISON: Previous CT of the abdomen and pelvis January 2020 TECHNIQUE: Multidetector volumetric images were obtained from the superior aspect of the liver through the pubic symphysis following administration 85 mL of Omnipaque 350 intravenous contrast. Sagittal and coronal reformatted images were obtained on the technologist's workstation. Oral contrast: Yes This CT examination was performed using dose optimization techniques as appropriate, variously including the following: *Automated exposure control *Adjustment of mA and/or kV according to patient size (this includes techniques or standardized protocols for targeted exams where dose is matched to indication/reason for exam; i.e. extremities or head) *Use of iterative reconstruction technique DLP: 706 mGy-cm FINDINGS: LUNG BASES: The visualized lung bases are unremarkable. LIVER, GALLBLADDER, AND BILIARY TREE: The liver is normal in size, shape, and attenuation. No focal hepatic lesion or biliary ductal dilatation is present. The gallbladder has been removed. PANCREAS: Unremarkable. SPLEEN: Unremarkable. ADRENAL GLANDS: Unremarkable. KIDNEYS AND URETERS: The kidneys are normal in size, shape, and attenuation. No hydronephrosis, hydroureter, or calculi seen. No perinephric stranding. BLADDER: Not well evaluated due to artifact from GASTROINTESTINAL TRACT: Mild diverticulosis of the colon. No evidence of diverticulitis. The small and large bowel are otherwise unremarkable. The appendix is unremarkable. ABDOMINAL WALL: Small umbilical hernia. LYMPH NODES: Normal. VASCULAR: Atherosclerotic disease. No imaging PELVIC VISCERA: Unremarkable. OSSEOUS STRUCTURES: Bilateral replacement spine. 1 cm sclerotic lesion in the right pubic symphysis that is stable probably represents a bone island. CT/CT abdomen pelvis w IV con IMPRESSION: Diverticulosis. No evidence of diverticulitis. Normal-appearing appendix. Small umbilical hernia that Fleischner guidelines were followed.
[2023-08-09] MEDS: iohexoL 350 MG/ML 100 ML INFUS..BTL IV (11:53)
[2023-08-09] MEDS: Barium Sulfate Oral (Mocha) 450 ML ORAL.SUSP 900 ML PO (11:54)
== END 2023-08-09 09:24 | disposition home or self-care (01) ==
LOC: HO.CT 09:23
PROVIDERS: PCP Internal Medicine Medical Oncology; Visit Provider Internal Medicine Medical Oncology
DX: R10.31 Right lower quadrant pain (principal); D50.9 Iron deficiency anemia, unspecified
CPT/HCPCS: 74177; Q9967

== ENCOUNTER 2023-10-21 10:19 | Outpatient (REF) | payer OTHER, SELFPAY ==
[2023-10-21 13:21] LABS: MANUAL DIFF FLAG NO
[2023-10-21 13:30] LABS: Basophils Absolute Auto 0.1 X10*3/uL (0.0-0.2); Basophils Percent Auto 0.7 % (0-2); Eosinophils Absolute Auto 0.3 X10*3/uL (0.0-0.4); Hematocrit 46.2 % (37.0-47.0); Hemoglobin 14.7 g/dl (12.0-16.0); Imm Gran Abs Auto 0.03 X10*3/uL (0.00-0.03); Imm Gran Pct Auto 0.4 % (0.0-0.4); Lymphocytes Absolute Auto 2.6 X10*3/uL (1.2-4.9); Lymphocytes Percent Auto 30.4 % (20-40); Mean Corpuscular HGB Conc 31.8 g/dl (31.0-35.0); Mean Corpuscular Hemoglobin 26.5 pg (27.0-33.0); Mean Corpuscular Volume 83.4 fL (80.0-98.0); Mean Platelet Volume 10.5 fL (9.4-12.3); Monocytes Absolute Auto 0.7 X10*3/uL (0.1-1.2); Monocytes Percent Auto 7.7 % (2-11); Neutrophils Absolute Auto 4.9 x10*3/uL (2.0-8.3); Neutrophils Percent Auto 57.8 % (45-73); Platelet Count 390 X10*3/uL (160-400); Red Blood Count 5.54 X10*6/uL (4.20-5.50); Red Cell Distribution Width 17.1 % (11.0-16.0); White Blood Count 8.5 X10*3/uL (4.8-10.8)
[2023-10-21 14:01] LABS: Ferritin 46 ng/mL (10-250)
== END 2023-10-21 10:20 | disposition home or self-care (01) ==
LOC: HO.HMGCLDS 10:19
PROVIDERS: PCP Internal Medicine Medical Oncology; Visit Provider Internal Medicine Medical Oncology
DX: E66.9 Obesity, unspecified (principal); E61.1 Iron deficiency
CPT/HCPCS: 36415; 82728; 85025

== ENCOUNTER 2023-11-25 11:10 | Outpatient (REF) | payer OTHER, SELFPAY | END 2023-11-25 11:11 | disposition home or self-care (01) | LOC: HO.MAMMO 11:10 | PROVIDERS: PCP Internal Medicine Medical Oncology; Visit Provider Internal Medicine Medical Oncology | DX: Z12.31 Encounter for screening mammogram for malignant neoplasm of breast (principal) | CPT/HCPCS: 77063; 77067 ==

== ENCOUNTER → 2023-11-25 11:30 | Outpatient (BNV) | payer OTHER, SELFPAY | PROVIDERS: PCP Internal Medicine Medical Oncology; Visit Provider Radiology Diagnostic Radiology | DX: Z12.31 Encounter for screening mammogram for malignant neoplasm of breast (principal) | CPT/HCPCS: 77063; 77067 ==

== ENCOUNTER 2023-12-22 11:48 | Day surgery (SDC) | payer OTHER, SELFPAY ==
[2023-12-20 12:22] VITALS: BMI 38.6
--- NOTE | 2023-12-21 09:35 | HO.ANESPROP2 ---
Documented by User: Teressa Schmitz NP 12/21/23 09:36 HPI - Anesthesia Eval Consult details Narrative: 58yo F for Upper Endoscopy and Colonoscopy PMF Active Problems Active Problems: All Active Problems (Updated 12/20/23 @ 12:26 by Vickie Rinaldi RN) History of bilateral hip replacements (Acute) Retained suture (Acute) Status post right knee replacement (Acute) Primary osteoarthritis of right knee (Acute) High cholesterol (Acute) GERD (gastroesophageal reflux disease) (Acute) HTN (hypertension) (Acute) Past Medical History Medical History Thoracic outlet syndrome Arthritis Back pain GERD (gastroesophageal reflux disease) History of diverticulitis High cholesterol HTN (hypertension) Family History Family History Other HTN (hypertension) Family history of problems with anesthesia: No Surgical History Surgical History History of total right knee replacement (TKR) (~01/2022) History of ear surgery Hx of colonoscopy Hx of cholecystectomy Status post left knee replacement Status post total hip replacement, right Status post total hip replacement, left History of Problems with Anesthesia: No Social History Social History Household Members: Spouse Housing: House Are you a primary certified caregiver to a significant other at home: Yes ( - ill) Do you presently have visiting nurse or other home services: No Comment: 09/2021- tripped hurt knee Patient Tobacco Use Status: Former Tobacco user Quit Date: 5 yrsago Tobacco use type: Cigarette Cigarette Packs Per Day: 0.75 Cigarettes Per Day: 15.0 Years Smoked: 20 Second Hand Smoke Exposure: No service: No Meds Allergies Allergy/AdvReac Type Severity Reaction Status Date / Time amoxicillin [From AUGMENTIN] Allergy Unknown Severe Verified 12/22/23 12:01 Vaginal Burning clavulanic acid Allergy Unknown Severe Verified 12/22/23 12:01 [From AUGMENTIN] Vaginal Burning sulfamethoxazole Allergy Unknown Rash Verified 12/22/23 12:01 [From BACTRIM] trimethoprim [From BACTRIM] Allergy Unknown Rash Verified 12/22/23 12:01 Home Medications Medication Instructions Recorded Confirmed Last Taken Type lisinopril 20 1 tab PO DAILY 01/07/22 12/22/23 Unknown History mg-hydrochlorothiazide 12.5 mg tablet omeprazole 20 mg capsule,delayed 20 mg PO DAILY 01/07/22 12/22/23 Unknown History release simvastatin 80 mg tablet 80 mg PO QPM 01/07/22 12/22/23 Unknown History ibuprofen 200 mg capsule 800 mg PO Q8H PRN Pain 01/22/22 12/22/23 12/15/23 History naproxen sodium 220 mg capsule 440 mg PO Q12H PRN Pain 01/22/22 12/22/23 12/15/23 History (Aleve) ferrous sulfate 325 mg (65 mg 325 mg PO DAILY 12/20/23 12/22/23 12/15/23 History iron) tablet (FeroSul) Exam Height,Weight and Vital Signs: Height 5 ft 2 in Weight 95.821 kg Pertinent Lab Results Pertinent Lab Results: Laboratory Tests 08/04/23 10/21/23 11:45 10:33 WBC 8.5 Hgb 14.7 Hct 46.2 Plt Count 390 Sodium 138 Potassium 3.2 L Chloride 103 Carbon Dioxide 25 BUN 19 H Creatinine 0.84 Assessment and Plan Assessment Anesthesia Assessment: Chart Reviewed Final Anesthetic Review Family History of Problems with Anesthesia: No History of Problems with Anesthesia: No Documented by User: Riley Gambino MD 12/22/23 13:07 [facility] Past Medical History Medical History Thoracic outlet syndrome Arthritis Back pain GERD (gastroesophageal reflux disease) History of diverticulitis High cholesterol HTN (hypertension) Family History Family History Other HTN (hypertension) Surgical History Surgical History History of total right knee replacement (TKR) (~01/2022) History of ear surgery Hx of colonoscopy Hx of cholecystectomy Status post left knee replacement Status post total hip replacement, right Status post total hip replacement, left Social History Social History Household Members: Spouse Housing: House Are you a primary certified caregiver to a significant other at home: Yes ( - ill) Do you presently have visiting nurse or other home services: No Comment: 09/2021- tripped hurt knee Patient Tobacco Use Status: Former Tobacco user Quit Date: 5 yrsago Tobacco use type: Cigarette Cigarette Packs Per Day: 0.75 Cigarettes Per Day: 15.0 Years Smoked: 20 Second Hand Smoke Exposure: No service: No Meds Allergies Allergy/AdvReac Type Severity Reaction Status Date / Time amoxicillin [From AUGMENTIN] Allergy Unknown Severe Verified 12/22/23 12:01 Vaginal Burning clavulanic acid Allergy Unknown Severe Verified 12/22/23 12:01 [From AUGMENTIN] Vaginal Burning sulfamethoxazole Allergy Unknown Rash Verified 12/22/23 12:01 [From BACTRIM] trimethoprim [From BACTRIM] Allergy Unknown Rash Verified 12/22/23 12:01 Home Medications Medication Instructions Recorded Confirmed Last Taken Type lisinopril 20 1 tab PO DAILY 01/07/22 12/22/23 Unknown History mg-hydrochlorothiazide 12.5 mg tablet omeprazole 20 mg capsule,delayed 20 mg PO DAILY 01/07/22 12/22/23 Unknown History release simvastatin 80 mg tablet 80 mg PO QPM 01/07/22 12/22/23 Unknown History ibuprofen 200 mg capsule 800 mg PO Q8H PRN Pain 01/22/22 12/22/23 12/15/23 History naproxen sodium 220 mg capsule 440 mg PO Q12H PRN Pain 01/22/22 12/22/23 12/15/23 History (Aleve) ferrous sulfate 325 mg (65 mg 325 mg PO DAILY 12/20/23 12/22/23 12/15/23 History iron) tablet (FeroSul) Exam Airway Mallampati Class: II TM Dist: <=3cm Neck ROM: Full Loose/Missing/Broken Teeth: Yes and Upper Heart: ok Lungs: ok Assessment and Plan Assessment Anesthesia Assessment: Anesthesia Plan Discussed Final Anesthetic Review NPO: Yes ASA Class: III Final Preanesthetic Review: No Changes in Pt Med Stat, Meds/Allgs Chart Reviewed, Consent Obtained/Reviewed and Anes Risks/Benef Reviewed Patient Risk: Intermediate Procedure Risk: Intermediate Anesthetic Plan Anesthetic Plan: Agree w/ Assess. and Plan and TIVA Disposition: Standard PACU
[2023-12-22] VITALS (8 sets, daily range): BP systolic 143–197; BP diastolic 87–116; PULSE 74–93; RESP 15–18; TEMP 36.1–36.8; O2SAT 94–100; BMI 38.5
[2023-12-22] MEDS: Lactated Ringers 1,000 ML 100 ML IVCONT (12:27)
--- NOTE | 2023-12-22 13:04 | MHC.SHP ---
Pre-Procedural Eval Section A - 24 Hr Update-Section A only Date of Service: 12/22/23 The patient is an INPATIENT: No Changes since office visit: No Cold of Flu in the past 2 weeks, No New Medical Problems, No Changes in Medication and No Patient answered all questions The patient has been examined within 24 hours of the surgical procedure. The History & Physical has been completed within 30 days and I have reviewed it.: Yes Section B - Complete if H&P > 30 days Chief Complaint: Right lower quadrant pain,gerd, Allergies: Allergies Allergy/AdvReac Type Severity Reaction Status Date / Time amoxicillin [From AUGMENTIN] Allergy Unknown Severe Verified 12/22/23 12:01 Vaginal Burning clavulanic acid Allergy Unknown Severe Verified 12/22/23 12:01 [From AUGMENTIN] Vaginal Burning sulfamethoxazole Allergy Unknown Rash Verified 12/22/23 12:01 [From BACTRIM] trimethoprim [From BACTRIM] Allergy Unknown Rash Verified 12/22/23 12:01 Plan I have reviewed the history and physical and performed a pertinent physical examination on my patient. No changes have occurred unless specified. Time Spent With Patient Time: Total time managing care of this patient today ____ minutes.
[2023-12-22] MEDS: lisinopriL 20 MG TABLET PO (14:59)
--- NOTE | 2023-12-23 10:11 | OP_ITS ---
DATE OF SERVICE: 12/22/2023 SURGEON: Mark Kent MD INDICATIONS: Gastroesophageal reflux disease, right lower quadrant pain, and microcytosis. PREOPERATIVE DIAGNOSIS: POSTOPERATIVE DIAGNOSIS: PROCEDURE PERFORMED: Upper endoscopy with biopsy, colonoscopy to the terminal ileum with biopsy and snare polypectomy. ESTIMATED BLOOD LOSS: COMPLICATIONS: ANESTHESIA: Monitored anesthesia care. ASSISTANTS: SPECIMENS: DESCRIPTION OF PROCEDURE: A history and physical performed. The risks and benefits of the procedure were explained to the patient. Informed consent was obtained. The patient was placed in the left lateral decubitus position. The Olympus video gastroscope was introduced into the esophagus, stomach, and duodenum. Examination was performed and the scope was removed. She was repositioned for colonoscopy. A digital rectal exam was performed and was found to be normal. The Olympus pediatric video colonoscope was introduced into the rectum and advanced to the cecum. The cecum was identified by transillumination, palpation, and identification of ileocecal valve. Examination was performed. The scope was removed. She tolerated both procedures well and was taken to recovery area in stable condition. FINDINGS: Upper endoscopy: 1. Esophagus: The esophagus was normal. There was no esophagitis. Biopsies were obtained from the EG junction. 2. Stomach: The stomach showed no evidence of masses or ulcers. Antral biopsies were obtained to evaluate for H pylori. 3. Duodenum: The bulb and 2nd portion were normal. Biopsies were obtained from the 2nd portion. Colonoscopy: The terminal ileum was normal. The visualized colonic mucosa was normal. There was no evidence of colitis endoscopically. At 50 cm from the anal verge was an 8 mm polyp, which was removed with a hot snare and recovered via suction. Random sigmoid biopsies were obtained to evaluate for microscopic colitis. There was moderate sigmoid diverticulosis. Retroflexed examination showed some large internal hemorrhoids. IMPRESSION: 1. Gastroesophageal reflux disease. 2. Colon polyp. RECOMMENDATION: Follow up the biopsy results. MD MAHOGANY Vazquez/JERRY / [id number]
== END 2023-12-22 15:55 | disposition home or self-care (01) ==
PROVIDERS: PCP Internal Medicine Medical Oncology; Visit Provider Internal Medicine Gastroenterology
PROC: (CPT 43239; principal; 2023-12-22 13:00)
DX: K21.9 Gastro-esophageal reflux disease without esophagitis (principal); Z12.11 Encounter for screening for malignant neoplasm of colon; K63.5 Polyp of colon; K57.30 Diverticulosis of large intestine without perforation or abscess without bleeding; K64.8 Other hemorrhoids; Z83.719 Family history of colon polyps, unspecified; E78.5 Hyperlipidemia, unspecified; I10 Essential (primary) hypertension; Z79.02 Long term (current) use of antithrombotics/antiplatelets; Z79.899 Other long term (current) drug therapy
CPT/HCPCS: 43239; 45385; 45380; 88305; 88313; 88342; J2704

== ENCOUNTER 2024-01-31 09:54 | Outpatient (REF) | payer OTHER, SELFPAY ==
[2024-01-31 10:57] LABS: MANUAL DIFF FLAG NO
[2024-01-31 11:30] LABS: Basophils Percent Auto 0.2 % (0-2); Eosinophils Percent Auto 0.1 % (0-4); Hematocrit 48.5 % (37.0-47.0); Imm Gran Abs Auto 0.11 X10*3/uL (0.00-0.03); Imm Gran Pct Auto 0.8 % (0.0-0.4); Lymphocytes Absolute Auto 2.1 X10*3/uL (1.2-4.9); Lymphocytes Percent Auto 15.5 % (20-40); Mean Corpuscular Hemoglobin 27.9 pg (27.0-33.0); Mean Corpuscular Volume 84.6 fL (80.0-98.0); Mean Platelet Volume 10.1 fL (9.4-12.3); Monocytes Absolute Auto 0.4 X10*3/uL (0.1-1.2); Monocytes Percent Auto 2.9 % (2-11); Neutrophils Absolute Auto 11.1 x10*3/uL (2.0-8.3); Neutrophils Percent Auto 80.5 % (45-73); Platelet Count 446 X10*3/uL (160-400); Red Blood Count 5.73 X10*6/uL (4.20-5.50); Red Cell Distribution Width 14.8 % (11.0-16.0); White Blood Count 13.8 X10*3/uL (4.8-10.8)
[2024-01-31 11:49] LABS: Alanine Aminotransferase 24 U/L (0-31); Albumin Level 4.5 g/dL (3.5-5.0); Alkaline Phosphatase 82 U/L (39-117); Anion Gap 13 (12-20); Aspartate Amino Transferase 31 U/L (5-31); Bilirubin Total 0.4 mg/dL (0.0-1.0); Blood Urea Nitrogen 15 mg/dL (9-16); Calcium 10.2 mg/dL (8.4-10.2); Carbon Dioxide 24 mmol/L (22-29); Chloride 108 mmol/L (96-108); Cholesterol 257 mg/dL (<200); Estimated Glomerular Filt Rate > 60; Glucose Fasting 129 mg/dL (60-99); HDL Cholesterol 48 mg/dL (>40); LDL Cholesterol Calculated 181 mg/dL (<100); Potassium 4.8 mmol/L (3.3-5.1); Sodium 140 mmol/L (135-145); Total Protein 8.1 g/dL (6.5-8.0); Triglycerides 144 mg/dL (<150)
[2024-01-31 12:06] LABS: Ferritin 61 ng/mL (10-250)
== END 2024-01-31 09:55 | disposition home or self-care (01) ==
LOC: HO.HMGCLDS 09:54
PROVIDERS: PCP Internal Medicine Medical Oncology; Visit Provider Internal Medicine Medical Oncology
DX: Z00.00 Encounter for general adult medical examination without abnormal findings (principal); E66.9 Obesity, unspecified; D50.9 Iron deficiency anemia, unspecified
CPT/HCPCS: 36415; 80053; 80061; 82728; 85025

== ENCOUNTER 2024-06-23 10:00 | Outpatient (REF) | payer OTHER, SELFPAY ==
[2024-06-23 13:12] LABS: MANUAL DIFF FLAG NO
[2024-06-23 13:17] LABS: Basophils Absolute Auto 0.1 X10*3/uL (0.0-0.2); Basophils Percent Auto 0.6 % (0-2); Eosinophils Absolute Auto 0.5 X10*3/uL (0.0-0.4); Hematocrit 45.2 % (37.0-47.0); Hemoglobin 14.6 g/dl (12.0-16.0); Imm Gran Abs Auto 0.13 X10*3/uL (0.00-0.03); Imm Gran Pct Auto 1.3 % (0.0-0.4); Lymphocytes Absolute Auto 3.5 X10*3/uL (1.2-4.9); Lymphocytes Percent Auto 34.9 % (20-40); Mean Corpuscular HGB Conc 32.3 g/dl (31.0-35.0); Mean Corpuscular Hemoglobin 28.5 pg (27.0-33.0); Mean Corpuscular Volume 88.1 fL (80.0-98.0); Mean Platelet Volume 10.4 fL (9.4-12.3); Monocytes Absolute Auto 0.6 X10*3/uL (0.1-1.2); Monocytes Percent Auto 6.4 % (2-11); Neutrophils Absolute Auto 5.2 x10*3/uL (2.0-8.3); Neutrophils Percent Auto 51.8 % (45-73); Platelet Count 417 X10*3/uL (160-400); Red Blood Count 5.13 X10*6/uL (4.20-5.50); Red Cell Distribution Width 14.7 % (11.0-16.0); White Blood Count 10.1 X10*3/uL (4.8-10.8)
[2024-06-23 13:42] LABS: Alanine Aminotransferase 25 U/L (0-31); Albumin Level 4.1 g/dL (3.5-5.0); Alkaline Phosphatase 66 U/L (39-117); Anion Gap 15 (12-20); Aspartate Amino Transferase 29 U/L (5-31); Bilirubin Total 0.4 mg/dL (0.0-1.0); Blood Urea Nitrogen 13 mg/dL (9-16); Calcium 10.2 mg/dL (8.4-10.2); Carbon Dioxide 24 mmol/L (22-29); Chloride 107 mmol/L (96-108); Cholesterol 249 mg/dL (<200); Estimated Glomerular Filt Rate > 60; Glucose Fasting 120 mg/dL (60-99); HDL Cholesterol 35 mg/dL (>40); LDL Cholesterol Calculated 148 mg/dL (<100); Potassium 4.5 mmol/L (3.3-5.1); Sodium 141 mmol/L (135-145); Total Protein 7.2 g/dL (6.5-8.0); Triglycerides 332 mg/dL (<150)
[2024-06-23 13:46] LABS: Ferritin 58 ng/mL (10-250)
== END 2024-06-23 10:01 | disposition home or self-care (01) ==
LOC: HO.HMGCLDS 10:00
PROVIDERS: PCP Internal Medicine Medical Oncology; Visit Provider Internal Medicine Medical Oncology
DX: E66.9 Obesity, unspecified (principal); E78.5 Hyperlipidemia, unspecified
CPT/HCPCS: 36415; 80053; 80061; 82728; 85025

== ENCOUNTER 2024-10-28 11:00 | Outpatient (REF) | payer OTHER, SELFPAY ==
--- OUTSIDE RECORDS SUMMARY | 2024-10-28 11:02 | XMS_ITS ---
Author Organization Stefan Sandoval III, MD Address [address] [place] [address] [place] [address] Care Team Providers Care Policy Change Clerk Name Role Phone Stefan Sandoval Primary Care Provider [phone] Allergies Allergen (clinical drug ingredient) Drug/Non Drug Allergy documented on EMR Reaction Allergy Type Onset Date Status sulfamethoxazole / trimethoprim Bactrim rash Drug Allergy Active amoxicillin / clavulanate Augmentin Unknown Drug Allergy Active REASON FOR VISIT New Concern Medications Medication SIG (Take, Route, Frequency, Duration) Notes Start Date End Date Status Cyclobenzaprine HCl 10 MG 1 tablet at be dtime as needed Orally three times a day 05/24/2023 Active Ibuprofen 800 MG 1 tablet with food o r milk as needed Orally Three times a day 04/26/2018 Active Simvastatin 80 MG TAKE 1 TABLET BY ROHITH TH EVERY DAY IN THE EVENING Active Omeprazole 20 MG TAKE 1 CAPSULE BY MO UTH EVERY DAY Active Lisinopril-hydroCHLOROthiazi d e 20-12.5 MG TAKE 1 TABLET BY MOUTH EVERY DAY Active Multi Vitamin - 1 tablet Orally Once a day Active Ferrous Sulfate 325 (65 Fe) MG 1 tablet Orally once a day 08/12/2023 Active Social History Tobacco Use: Social History Observation Description Date Details (start date - stop date) Former Smoker NA - NA Sex Assigned At : Social History Observation Description Sex Assigned At Female Tobacco Use/Smoking Question Answer Notes Patient is a former smoker How long has it been since you last smoked? 5-10 years Additional Findings: Tobacco Non-User Current no n-smoker Encounters Encounter Location Date Provider Diagnosis Stefan Sandoval III, MD [address] [place] [address] [place] [id number] 08/22/2024 Stefan Sandoval Obesity (BMI 30-39.9) E66.9 Assessments Encounter Date Diagnosis (ICD Code) Assessment Notes Treatment Notes Treatment Clinical Notes 08/22/2024 Obesity (BMI 30-39.9) (ICD-10 - E66.9) She has gained 2 pounds and her body mass index is 39. We discussed diet and nutrition. We made a plan to lose weight at a rate of one half of a pound per week through a diet restricted in calories and sodium combined with regular physical activity. Plan Of Treatment Medication Medication Name Sig Start Date Stop Date Notes Cyclobenzaprine HCl 10 MG 1 tablet at be dtime as needed Orally three times a day 05/24/2023 Ibuprofen 800 MG 1 tablet with food o r milk as needed Orally Three times a day 04/26/2018 Simvastatin 80 MG TAKE 1 TABLET BY ROHITH TH EVERY DAY IN THE EVENING Omeprazole 20 MG TAKE 1 CAPSULE BY MO UTH EVERY DAY Lisinopril-hydroCHLOROthiazi de 20-12.5 MG TAKE 1 TABLET BY MOUTH EVERY DAY Multi Vitamin - 1 tablet Orally Once a day Ferrous Sulfate 325 (65 Fe) MG 1 tablet Orally once a day 08/12/2023 Next Appt Details Provider Name:Stefan Sandoval, 11/01/2024 11:00:00 AM, [address] [place] [address], [id number], Progress Notes * KHALIDA TywillamDOB: 6 (59 yo F)Acc No.[id number]:08/22/2024 Progress Notes Patient:?Desiree GAXIOLA Provider:?Stefan Sandoval MD :[id number]???Age:59 Y???Sex:Female D ate:08/22/2024 Address:[address] [place], [place] [id number] Subjective: * Chief Complaints: * ???1. New Concern. * HPI: ???COVID-19 Screening:?Questions?Have you had any new onset fever, chills, cough, congestion, sore throat, shortness of breath, muscle aches??No ?Have you been exposed to the virus within the last 10 days??No ?Have you travelled internationally in the last 10 days??No ?Have you been exposed to COVID-19 in the past??No * ROS:?General/Constitutional:?pain?only normal aches and pains.?Chills?denies.?Fatigue?admits.?Fever?denies.?ENT:?Decreased hearing?denies.?Respiratory:?Cough?denies.?Cardiovascular:?Chest pain with exertion?denies.?Dyspnea on exertion?denies.?Shortness of breath?denies.?Gastrointestinal:?Constipation?denies.?Decreased appetite?denies.?Diarrhea?denies.?Heartburn?denies.?Nausea?denies.?Rectal bleeding?denies.?Vomiting?denies.?Hematology:?bruising?denies.?petechiae?denies.?Swollen glands?none have been noted.?Genitourinary:?Frequent urination?denies.?Musculoskeletal:?Muscle aches?denies.?Painful joints?denies.?Sciatica?denies.?Weakness?denies.?Skin:?Itching?denies.?Rash?denies.?Skin lesion(s)?denies.?Neurologic:?Difficulty speaking?denies.?Dizziness?denies.?Headache?denies.?Low back pain?denies.?Psychiatric:?Depressed mood?denies.? * Medical History:?TOS (thorac ic outlet syndrome), Hyperlipidemia, GERD, , Laceration right first toe 2014, LMP 2013 agge 47, Hypertension, Obesity, Osteoarthritis, Cholecystectomy 2000, Former smoker. * Surgical History:?Left knee dislocation 1975, Left ear myringotomy 1977, Arthroscopic right knee surgery 1999, cholecystectomy 2000, Right hip replacement 2001, Left hip replacement 2002, Perforated ear patch 2004, Hemorrhoid removed 2007, Left knee replacement, [facility] 2013, two colonoscopies, Dr. Cloud , right knee replacement 02/03/22. * Hospitalization/Major Diagno stic Procedure:?Denies Past Hospitalization. * Family History:?Father: dece ased 83 yrs, of heart attack, thyroid disease, polyps, diagnosed with HTN.?Mother: 73 yrs, of heart attack, diagnosed with HTN.?2 sister(s) . 1 son(s) - healthy. .? Her sister has thyroid disease. Her son Edgardo is healthy and well. There is no family history of ovarian breast or uterine cancer. She is not aware of any family history of mental illness or substance use disorder, or addictions. * Social History:?Tobacco Use:?Tobacco Use/Smoking?Patient is a?former smoker ?How long has it been since you last smoked??5-10 years ?Additional Findings: Tobacco Non-User?Current non-smoker ???She is and has one son, Edgardo, who is alive and well. She has been to [place] for many years. She continues to smoke a package of cigarettes per day. * Medications:?Taking Omeprazo le 20 MG Capsule Delayed Release TAKE 1 CAPSULE BY MOUTH EVERY DAY , Taking Simvastatin 80 MG Tablet TAKE 1 TABLET BY MOUTH EVERY DAY IN THE EVENING , Taking Ibuprofen 800 MG Tablet 1 tablet with food or milk as needed Orally Three times a day , Taking Cyclobenzaprine HCl 10 MG Tablet 1 tablet at bedtime as needed Orally three times a day , Taking Ferrous Sulfate 325 (65 Fe) MG Tablet 1 tablet Orally once a day , Taking Multi Vitamin - Tablet 1 tablet Orally Once a day , Taking Lisinopril-hydroCHLOROthiazide 20-12.5 MG Tablet TAKE 1 TABLET BY MOUTH EVERY DAY , Medication List reviewed and reconciled with the patient * Allergies:?Augmentin: Allerg y, Bactrim: rash - Allergy. Objective: * Vitals:? * Examination: ???General Examination: ?GENERAL APPEARANCE:?pleasant, well nourished, well developed, in no acute distress, calm and relaxed.?HEAD:?atraumatic, normocephalic.?EYES:?eomi, perrla, anicteric, conjugate.?EARS:?normal.?NOSE:?septum intact.?ORAL CAVITY:?normal, unremarkable.?NECK/THYROID:?no jugular venous distention, no carotid bruit, thyroid normal.?LYMPH NODES:?no enlarged lymph nodes,spleen normal.?SKIN:?no suspicious lesions, anicteric.?HEART:?no clicks, gallops, murmurs, or rubs, regular rhythm, S1, S2 normal, no s3, or vascular bruits.?LUNGS:?clear to auscultation .?BREASTS:??no masses palpable bilaterally.?ABDOMEN:?bowel sounds normal, no ascites, no organomegaly, no mass.?RECTAL EXAM:?not examined.?MUSCULOSKELETAL:?extremities unremarkable, no clubbing, cyanosis or edema.?PERIPHERAL PULSES:?normal.?NEUROLOGIC:?alert and oriented, cranial nerves 2-12 grossly intact, deep tendon reflexes 2+ symmetrical, motor strength normal upper and lower extremities, sensory exam intact.?PSYCH:?alert, oriented.? Assessment: * Assessment: 1.?Obesity (BMI 30-39.9) - E 66.9???Notes :She has gained 2 pounds and her body mass index is 39. We discussed diet and nutrition. We made a plan to lose weight at a rate of one half of a pound per week through a diet restricted in calories and sodium combined with regular physical activity.??? Plan: * Treatment: 2.?Others? Continue Lisinopril-hydroCHLOROthiazide Tablet, 20-12.5 MG, TAKE 1 TABLET BY MOUTH EVERY DAY;?Continue Omeprazole Capsule Delayed Release, 20 MG, TAKE 1 CAPSULE BY MOUTH EVERY DAY;?Continue Simvastatin Tablet, 80 MG, TAKE 1 TABLET BY MOUTH EVERY DAY IN THE EVENING.?? * Images: * The named appointment provid er may or may not be the originator of this progress note, and it is not deemed complete until electronically signed by the appointment provider. Sign off status: Pending * Provider:?Stefan Sandoval MD Date:?06/2024 Generated for Joy liu/Curt/eTransmitting on:?10/28/2024 11:02 AM EST History and Physical Notes * HPI (History of Present Illness) Category Sub-Category Detail Notes COVID-19 Screening Questions Have you had any new onset fever, chills, cough, congestion, sore throat, shortness of breath, muscle aches?: No Have you been exposed to the virus withi n the last 10 days?: No Have you travelled internationally in [facility] last 10 days?: No Have you been exposed to COVID-19 in the past?: No Examination Category Sub-Category Detail Notes General Examination GENERAL APPEARANCE: pleasant , well nourished, well developed, in no acute distress, calm and relaxed HEAD: atraumatic, normocep halic EYES: eomi, perrla, anicte abbey, conjugate EARS: normal NOSE: septum intact NECK/THYROID: no jugular venous di stention, no carotid bruit, thyroid normal HEART: no clicks, gallops, murmurs, or rubs, regular rhythm, S1, S2 normal, no s3, or vascular bruits LUNGS: clear to auscultatio n ABDOMEN: bowel sounds normal, no ascites, no organomegaly, no mass NEUROLOGIC: alert and oriented, cranial nerves 2-12 grossly intact, deep tendon reflexes 2+ symmetrical, motor strength normal upper and lower extremities, sensory exam intact SKIN: no suspicious lesion s, anicteric PERIPHERAL PULSES: normal BREASTS: no masses palpable b ilaterally MUSCULOSKELETAL: extremities unremark able, no clubbing, cyanosis or edema LYMPH NODES: no enlarged lymph no ursula,spleen normal RECTAL EXAM: not examined PSYCH: alert, oriented ORAL CAVITY: normal, unremarkable
--- OUTSIDE RECORDS SUMMARY | 2024-10-28 11:02 | XMS_ITS ---
Author Organization Stefan Sandoval III, MD Address [address] [place] [address] [place] [address] Care Team Providers Care Insurance Sales Specialist Name Role Phone Stefan Sandoval Primary Care Provider Allergies Allergen (clinical drug ingredient) Drug/Non Drug Allergy documented on EMR Reaction Allergy Type Onset Date Status sulfamethoxazole / trimethoprim Bactrim rash Drug Allergy Active amoxicillin / clavulanate Augmentin Unknown Drug Allergy Active REASON FOR VISIT History of iron deficiency, Arthritis both hips, Hyperlipidemia, Obesity, Hypertension Medications Medication SIG (Take, Route, Frequency, Duration) Notes Start Date End Date Status Ibuprofen 800 MG 1 tablet with food o r milk as needed Orally Three times a day 04/26/2018 Active Lisinopril-hydroCHLOROthiazi d e 20-12.5 MG TAKE 1 TABLET BY MOUTH EVERY DAY Active Ferrous Sulfate 325 (65 Fe) MG 1 tablet Orally once a day 08/12/2023 Active Cyclobenzaprine HCl 10 MG 1 tablet at be dtime as needed Orally three times a day 05/24/2023 Active Omeprazole 20 MG TAKE 1 CAPSULE BY MO UTH EVERY DAY Active Simvastatin 80 MG TAKE 1 TABLET BY ROHITH TH EVERY DAY IN THE EVENING Active Social History Tobacco Use: Social History Observation Description Date Details (start date - stop date) Former Smoker NA - NA Sex Assigned At : Social History Observation Description Sex Assigned At Female Tobacco Use/Smoking Question Answer Notes Patient is a former smoker How long has it been since you last smoked? 5-10 years Additional Findings: Tobacco Non-User Current no n-smoker Vital Signs Temperature 97.5 degrees Fahrenheit 03/27/20 24 Blood pressure systolic 134 mm Hg 03/27/20 24 Blood pressure diastolic 89 mm Hg 024 Heart Rate 100 /min 03/27/2024 Height 62.5 in 03/27/2024 Weight 220 lbs 03/27/2024 BMI 39.59 kg/m2 03/27/2024 Encounters Encounter Location Date Provider Diagnosis Stefan Sandovla III, MD [address] [place] [address] DR [place], [place] [id number] 03/27/2024 Stefan Sandoval Obesity (BMI 30-39.9 ) E66.9 ; Hyperlipidemia, unspecified hyperlipidemia type E78.5 ; Osteoarthritis of multiple joints, unspecified osteoarthritis type M15.9 ; Former smoker Z87.891 ; Primary osteoarthritis of right knee M17.11 and Essential hypertension I10 Assessments Encounter Date Diagnosis (ICD Code) Assessment Notes Treat ment Notes Treatment Clinical Notes 03/27/2024 Obesity (BMI 30-39.9) (ICD-10 - E66.9) She has gained 10 pounds and her body mass index is 39. We discussed diet and nutrition. We made a plan to lose weight at a rate of one half of a pound per week through a diet restricted in calories and sodium combined with regular physical activity. 03/27/2024 Hyperlipidemia, unspecified hyperlipidemia type (ICD-10 - E78.5) Her total cholesterol is 257 which is higher than usual. We discussed cholesterol reduction dietts at length. 03/27/2024 Osteoarthritis of multiple joints, unspecified osteoarthritis type (ICD-10 - M15.9) She will continue on current therapy at this time. 03/27/2024 Former smoker (ICD-10 - Z87.891) She seems highly motivated not to smoke. She has a plan to prevent relapse in times of stress and illness and weight loss. 03/27/2024 Primary osteoarthritis of right knee (ICD-10 - M17.11) She is going to have the joint replaced next week. She cultured Staphylococcus aureus, out of her nose and will use bacitracin twice a day in each nostril until surgery. Her EKG and blood work is adequate for treatment. She has given medical clearance for the procedure. 03/27/2024 Essential hypertension (ICD-10 - I10) Her blood pressure has been currently stable and no change in her regimen was needed today. I have recommended aggressive weight loss and sodium restriction. Plan Of Treatment Medication Medication Name Sig Start Date Stop Date Notes Ibuprofen 800 MG 1 tablet with food o r milk as needed Orally Three times a day 04/26/2018 Lisinopril-hydroCHLOROthiazi de 20-12.5 MG TAKE 1 TABLET BY MOUTH EVERY DAY Ferrous Sulfate 325 (65 Fe) MG 1 tablet Orally once a day 08/12/2023 Cyclobenzaprine HCl 10 MG 1 tablet at be dtime as needed Orally three times a day 05/24/2023 Omeprazole 20 MG TAKE 1 CAPSULE BY MO UTH EVERY DAY Simvastatin 80 MG TAKE 1 TABLET BY ROHITH TH EVERY DAY IN THE EVENING Next Appt Details Follow Up: 3 Months, Reason: OV Provider Name:Stefan Sandoval, 11/01/2024 11:00:00 AM, [address] [place] [address] [address] [place] [address], [place], [phone], Progress Notes * Desiree GAXIOLADOB: [birth year] (58 yo F)Acc No.[id number]:03/27/2024 Progress Notes Patient:?Khalida Desiree Provider:?Stefan Sandoval MD :1965???Age:58 Y???Sex:Female D ate:03/27/2024 Address:[address] [place], [place] [id number] Subjective: * Chief Complaints: * ???History of iron deficienc yArthritis both hipsHyperlipidemiaObesityHypertension * HPI: ???COVID-19 Screening:?Questions?Have you experienced fever, chills, cough, sore throat, shortness of breath, difficulty breathing, muscle aches, loss of taste or smell??No ?Have you been exposed to the virus within the last 10 days??No ?Have you travelled internationally in the last 10 days??No ?Have you been exposed to COVID-19 in the past??Yes ? She returns for management of several issues. She has had an episode of recuurrentt back pain for which she took some dexamethasone. He says it did not work but made her gaiin weight. Her weight is up 10 pounds since her last visit. She continues to havve bilateral arrthritic pain in the knees left worse than right.. * ROS:?General/Constitutional:?pain?Both knees, otherwise only normal aches and pains.?Chills?denies.?Fatigue?admits.?Fever?denies.?ENT:?Decreased hearing?denies.?Respiratory:?Cough?denies.?Cardiovascular:?Chest pain with exertion?denies.?Dyspnea on exertion?denies.?Shortness of breath?denies.?Gastrointestinal:?Constipation?occasional.?Decreased appetite?denies.?Diarrhea?denies.?Heartburn?occasional.?Nausea?denies.?Rectal bleeding?denies.?Vomiting?denies.?Hematology:?bruising?denies.?petechiae?denies.?Swollen glands?none have been noted.?Genitourinary:?Frequent urination?a small amount.?Musculoskeletal:?Muscle aches?denies.?Painful joints?denies.?Sciatica?denies.?Weakness?denies.?Skin:?Itching?denies.?Rash?denies.?Skin lesion(s)?denies.?Neurologic:?Difficulty speaking?denies.?Dizziness?denies.?Headache?denies.?Low back pain?denies.?Psychiatric:?Depressed mood?which is mild.? * Medical History:? * Surgical History:?Left knee dislocation 1976Left ear myringotomy 1978Arthroscopic right knee surgery 2000cholecystectomy 2001Right hip replacement 2002Left hip replacement 2003Perforated ear patch 2005Hemorrhoid removed 2008Left knee replacement, [facility] 2014two colonoscopies, Dr. Cloud right knee replacement 02/03/22 * Hospitalization/Major Diagno stic Procedure:?Denies Past Hospitalization * Family History:?Father: dece ased 83 yrs, [...] a package of cigarettes per day. * Medications:?TakingIbuprofen 800 MG Tablet 1 tablet with food or milk as needed Orally Three times a dayCyclobenzaprine HCl 10 MG Tablet 1 tablet at bedtime as needed Orally three times a dayOmeprazole 20 MG Capsule Delayed Release TAKE 1 CAPSULE BY MOUTH EVERY DAY Lisinopril-hydroCHLOROthiazide 20-12.5 MG Tablet TAKE 1 TABLET BY MOUTH EVERY DAY Ferrous Sulfate 325 (65 Fe) MG Tablet 1 tablet Orally once a daySimvastatin 80 MG Tablet TAKE 1 TABLET BY MOUTH EVERY DAY IN THE EVENING Medication List reviewed and reconciled with the patientTaking Ibuprofen 800 MG Tablet 1 tablet with food or milk as needed Orally Three times a dayTaking Cyclobenzaprine HCl 10 MG Tablet 1 tablet at bedtime as needed Orally three times a dayTaking Omeprazole 20 MG Capsule Delayed Release TAKE 1 CAPSULE BY MOUTH EVERY DAY Taking Lisinopril-hydroCHLOROthiazide 20-12.5 MG Tablet TAKE 1 TABLET BY MOUTH EVERY DAY Taking Ferrous Sulfate 325 (65 Fe) MG Tablet 1 tablet Orally once a dayTaking Simvastatin 80 MG Tablet TAKE 1 TABLET BY MOUTH EVERY DAY IN THE EVENING Medication List reviewed and reconciled with the patient * Allergies:?Augmentin: Allerg yBactrim: rash - Allergyno[Allergies Verified] Objective: * Vitals:?Ht: 62.5, Wt: 220, B AZ:39.59, BP: 134/89, HR: 100, Temp: 97.5, Wt-k.79. * ???Past Orders: Lab:Lipid Panel * Order Date 01/31/2024 05/21/2023 02/22/2023 Triglycerides 144 (Ref Range: <150 mg/dL) 233 (Ref Range: mg/dL) 228 (Ref Range: mg/dL) Cholesterol 257?H (Ref Range: <200 mg/dL) 233 (Ref Range: mg/dL) 205 (Ref Range: mg/dL) LDL Cholesterol Calculated 181?H (Ref Range: <100 mg/dL) 150 (Ref Range: mg/dl) 125 (Ref Range: mg/dl) HDL Cholesterol 48 (Ref Range: >40 mg/dL) 37 (Ref Range: mg/dL) 35 (Ref Range: mg/dL) * Lab:Ferritin * Order Date 01/31/2024 10/21/2023 08/04/2023 Ferritin 61 (Ref Range: 10-250 ng/mL) 46 (Ref Range: 10-250 ng/mL) 19 (Ref Range: 10-250 ng/mL) * Lab:Comprehensive [place]. Pane l Fast * Order Date 01/31/2024 05/21/2023 02/22/2023 Sodium 140 (Ref Range: 135-145 mmol/L) 143 (Ref Range: 135-145 mmol/L) 144 (Ref Range: 135-145 mmol/L) Bilirubin Total 0.4 (Ref Range: 0.0-1.0 mg/dL) 0.5 (Ref Range: 0.0-1.0 mg/dL) 0.6 (Ref Range: 0.0-1.0 mg/dL) Aspartate Amino Transferase 31 (Ref Range: 5-31 U/L) 36?H (Ref Range: 5-31 U/L) 37?H (Ref Range: 5-31 U/L) Alanine Aminotransferase 24 (Ref Range: 0-31 U/L) 22 (Ref Range: 0-31 U/L) 22 (Ref Range: 0-31 U/L) Total Protein 8.1?H (Ref Range: 6.5-8.0 g/dL) 7.3 (Ref Range: 6.5-8.0 g/dL) 6.7 (Ref Range: 6.5-8.0 g/dL) Albumin Level 4.5 (Ref Range: 3.5-5.0 g/dL) 4.2 (Ref Range: 3.5-5.0 g/dL) 4.1 (Ref Range: 3.5-5.0 g/dL) Alkaline Phosphatase 82 (Ref Range: 39-117 U/L) 84 (Ref Range: 39-117 U/L) 96 (Ref Range: 39-117 U/L) Potassium 4.8 (Ref Range: 3.3-5.1 mmol/L) 3.9 (Ref Range: 3.3-5.1 mmol/L) 4.2 (Ref Range: 3.3-5.1 mmol/L) Chloride 108 (Ref Range: 96-108 mmol/L) 111?H (Ref Range: 96-108 mmol/L) 109?H (Ref Range: 96-108 mmol/L) Carbon Dioxide 24 (Ref Range: 22-29 mmol/L) 21?L (Ref Range: 22-29 mmol/L) 26 (Ref Range: 22-29 mmol/L) Anion Gap 13 (Ref Range: 12-20) 15 (Ref Range: 12-20) 13 (Ref Range: 12-20) Blood Urea Nitrogen 15 (Ref Range: 9-16 mg/dL) 16 (Ref Range: 9-16 mg/dL) 14 (Ref Range: 9-16 mg/dL) Creatinine 0.73 (Ref Range: 0.5-1.4 mg/dL) 0.70 (Ref Range: 0.5-1.4 mg/dL) 0.76 (Ref Range: 0.5-1.4 mg/dL) Estimated Glomerular Filt Rate > 60 > 60 > 60 Glucose Fasting 129?H (Ref Range: 60-99 mg/dL) 99 (Ref Range: 60-99 mg/dL) 109?H (Ref Range: 60-99 mg/dL) Calcium 10.2 (Ref Range: 8.4-10.2 mg/dL) 9.7 (Ref Range: 8.4-10.2 mg/dL) 9.3 (Ref Range: 8.4-10.2 mg/dL) * Lab:Complete Blood Count Aut o Diff * Order Date 01/31/2024 10/21/2023 08/04/2023 White Blood Count 13.8?H (Ref Range: 4.8-10.8 X10*3/uL) 8.5 (Ref Range: 4.8-10.8 X10*3/uL) 13.7?H (Ref Range: 4.8-10.8 X10*3/uL) Red Blood Count 5.73?H (Ref Range: 4.20-5.50 X10*6/uL) 5.54?H (Ref Range: 4.20-5.50 X10*6/uL) 5.92?H (Ref Range: 4.20-5.50 X10*6/uL) Hemoglobin 16.0 (Ref Range: 12.0-16.0 g/dl) 14.7 (Ref Range: 12.0-16.0 g/dl) 14.8 (Ref Range: 12.0-16.0 g/dl) Hematocrit 48.5?H (Ref Range: 37.0-47.0 %) 46.2 (Ref Range: 37.0-47.0 %) 46.5 (Ref Range: 37.0-47.0 %) Mean Corpuscular Volume 84.6 (Ref Range: 80.0-98.0 fL) 83.4 (Ref Range: 80.0-98.0 fL) 78.5?L (Ref Range: 80.0-98.0 fL) Mean Corpuscular Hemoglobin 27.9 (Ref Range: 27.0-33.0 pg) 26.5?L (Ref Range: 27.0-33.0 pg) 25.0?L (Ref Range: 27.0-33.0 pg) Mean Corpuscular HGB Conc 33.0 (Ref Range: 31.0-35.0 g/dl) 31.8 (Ref Range: 31.0-35.0 g/dl) 31.8 (Ref Range: 31.0-35.0 g/dl) Red Cell Distribution Width 14.8 (Ref Range: 11.0-16.0 %) 17.1?H (Ref Range: 11.0-16.0 %) 17.8?H (Ref Range: 11.0-16.0 %) Platelet Count 446?H (Ref Range: 160-400 X10*3/uL) 390 (Ref Range: 160-400 X10*3/uL) 426?H (Ref Range: 160-400 X10*3/uL) Mean Platelet Volume 10.1 (Ref Range: 9.4-12.3 fL) 10.5 (Ref Range: 9.4-12.3 fL) 9.4 (Ref Range: 9.4-12.3 fL) Neutrophils Percent Auto 80.5?H (Ref Range: 45-73 %) 57.8 (Ref Range: 45-73 %) 49.7 (Ref Range: 45-73 %) Imm Gran Pct Auto 0.8?H (Ref Range: 0.0-0.4 %) 0.4 (Ref Range: 0.0-0.4 %) 0.8?H (Ref Range: 0.0-0.4 %) Lymphocytes Percent Auto 15.5?L (Ref Range: 20-40 %) 30.4 (Ref Range: 20-40 %) 38.5 (Ref Range: 20-40 %) Monocytes Percent Auto 2.9 (Ref Range: 2-11 %) 7.7 (Ref Range: 2-11 %) 9.0 (Ref Range: 2-11 %) Eosinophils Percent Auto 0.1 (Ref Range: 0-4 %) 3.0 (Ref Range: 0-4 %) 1.7 (Ref Range: 0-4 %) Basophils Percent Auto 0.2 (Ref Range: 0-2 %) 0.7 (Ref Range: 0-2 %) 0.3 (Ref Range: 0-2 %) NRBC Pct Auto 0.0 (Ref Range: 0.0-0.2 /100WBC) 0.0 (Ref Range: 0.0-0.2 /100WBC) 0.0 (Ref Range: 0.0-0.2 /100WBC) Neutrophils Absolute Auto 11.1?H (Ref Range: 2.0-8.3 x10*3/uL) 4.9 (Ref Range: 2.0-8.3 x10*3/uL) 6.8 (Ref Range: 2.0-8.3 x10*3/uL) Imm Gran Abs Auto 0.11?H (Ref Range: 0.00-0.03 X10*3/uL) 0.03 (Ref Range: 0.00-0.03 X10*3/uL) 0.11?H (Ref Range: 0.00-0.03 X10*3/uL) Lymphocytes Absolute Auto 2.1 (Ref Range: 1.2-4.9 X10*3/uL) 2.6 (Ref Range: 1.2-4.9 X10*3/uL) 5.3?H (Ref Range: 1.2-4.9 X10*3/uL) Monocytes Absolute Auto 0.4 (Ref Range: 0.1-1.2 X10*3/uL) 0.7 (Ref Range: 0.1-1.2 X10*3/uL) 1.2 (Ref Range: 0.1-1.2 X10*3/uL) Eosinophils Absolute Auto 0.0 (Ref Range: 0.0-0.4 X10*3/uL) 0.3 (Ref Range: 0.0-0.4 X10*3/uL) 0.2 (Ref Range: 0.0-0.4 X10*3/uL) Basophils Absolute Auto 0.0 (Ref Range: 0.0-0.2 X10*3/uL) 0.1 (Ref Range: 0.0-0.2 X10*3/uL) 0.0 (Ref Range: 0.0-0.2 X10*3/uL) NRBC Abs Auto 0.000 (Ref Range: 0.0-0.012 X10*3/uL) 0.000 (Ref Range: 0.0-0.012 X10*3/uL) 0.000 (Ref Range: 0.0-0.012 X10*3/uL) * Examination: ???General Examination: ?GENERAL APPEARANCE:?pleasant, well nourished, well developed, in no acute distress, calm and relaxed , obese , woman.?HEAD:?atraumatic, normocephalic.?EYES:?eomi, perrla, anicteric, conjugate.?EARS:?normal.?NOSE:?septum intact.?ORAL CAVITY:?normal, unremarkable.?NECK/THYROID:?no jugular venous distention, no carotid bruit, thyroid normal.?LYMPH NODES:?no enlarged lymph nodes,spleen normal.?SKIN:?no suspicious lesions, anicteric.?HEART:?no clicks, gallops, murmurs, or rubs, regular rhythm, S1, S2 normal, no s3, or vascular bruits.?LUNGS:?, diminished breath sounds throughout , no wheezes, rales, rhonchi , good air movement.?BREASTS:?not examined.?ABDOMEN:?bowel sounds normal, no ascites, no organomegaly, no mass.?RECTAL EXAM:?not examined.?MUSCULOSKELETAL:?extremities unremarkable, no clubbing, cyanosis or edema.?PERIPHERAL PULSES:?normal.?NEUROLOGIC:?alert and oriented, cranial nerves 2-12 grossly intact, deep tendon reflexes 2+ symmetrical, motor strength normal upper and lower extremities, sensory exam intact.?PSYCH:?alert, oriented.? Assessment: * Assessment: 1.?Obesity (BMI 30-39.9) - E 66.9 (Primary), She has gained 10 pounds and her body mass index is 39. We discussed diet and nutrition. We made a plan to lose weight at a rate of one half of a pound per week through a diet restricted in calories and sodium combined with regular physical activity.?2.?Hyperlipidemia, unspecified hyperlipidemia type - E78.5, Her total cholesterol is 257 which is higher than usual. We discussed cholesterol reduction dietts at length.?3.?Osteoarthritis of multiple joints, unspecified osteoarthritis type - M15.9, She will continue on current therapy at this time.?4.?Former smoker - Z87.891, She seems highly motivated not to smoke. She has a plan to prevent relapse in times of stress and illness and weight loss.?5.?Primary osteoarthritis of right knee - M17.11, She is going to have the joint replaced next week. She cultured Staphylococcus aureus, out of her nose and will use bacitracin twice a day in each nostril until surgery. Her EKG and blood work is adequate for treatment. She has given medical clearance for the procedure.?6.?Essential hypertension - I10, Her blood pressure has been currently stable and no change in her regimen was needed today. I have recommended aggressive weight loss and sodium restriction.? Plan: * Treatment: 2.?Hyperlipidemia, unspecifi ed hyperlipidemia type?LAB: PROFILE, FASTING (COMPREHENSIVE METABOLIC) ?LAB: CBC WITH AUTO DIFF ?LAB: Ferritin ?LAB: Lipid Panel 3.?Others? Continue Simvastatin Tablet, 80 MG, TAKE 1 TABLET BY MOUTH EVERY DAY IN THE EVENING;?Continue Omeprazole Capsule Delayed Release, 20 MG, TAKE 1 CAPSULE BY MOUTH EVERY DAY;?Continue Lisinopril-hydroCHLOROthiazide Tablet, 20-12.5 MG, TAKE 1 TABLET BY MOUTH EVERY DAY.?? * Procedure Codes:? * Preventive Medicine:? ??Counseling:?Care goal follow-up plan:?Counseling for abnormal BMI given?Yes ?Above Normal BMI Follow-up?Dietary management education, guidance, and counseling, Dietary needs education, Exercise promotion: strength training, Exercise promotion: stretching, Feeding regime, Giving encouragement to exercise, Lifestyle education regarding diet, Nutrition / feeding management, Nutrition therapy, Prescribed activity/exercise education, Prescribed diet education, Prescribed dietary intake, Special diet education, Weight monitoring , Intervention, Order not done: Medical or Other reason not done ?Smoking/Tobacco Use?Patient counseled on the dangers of tobacco use and urged to quit.?03/27/2024 * Follow Up:?3 Months (Reason: OV) * Images: * Sign off status: Completed true * Provider:?Stfean Sandoval MD Date:?03/15 Generated for Printi ng/Faxing/eTransmitting on:?10/28/2024 11:02 AM EST History and Physical Notes * HPI (History of Present Illness) Category Sub-Category Detail Notes COVID-19 Screening Questions Have you had any new onset fever, chills, cough, congestion, sore throat, shortness of breath, muscle aches?: No Have you been exposed to the virus withi n the last 10 days?: No Have you travelled internationally in [facility] last 10 days?: No Have you been exposed to COVID-19 in the past?: Yes Examination Category Sub-Category Detail Notes General Examination GENERAL APPEARANCE: pleasant , well nourished, well developed, in no acute distress, calm and relaxed , obese , woman HEAD: atraumatic, normocep halic EYES: eomi, perrla, anicte [place], conjugate EARS: normal NOSE: septum intact NECK/THYROID: no jugular venous di stention, no carotid bruit, thyroid normal HEART: no clicks, gallops, murmurs, or rubs, regular rhythm, S1, S2 normal, no s3, or vascular bruits LUNGS: , diminished breath sounds throughout , no wheezes, rales, rhonchi , good air movement ABDOMEN: bowel sounds normal, no ascites, no organomegaly, no mass NEUROLOGIC: alert and oriented, cranial nerves 2-12 grossly intact, deep tendon reflexes 2+ symmetrical, motor strength normal upper and lower extremities, sensory exam intact SKIN: no suspicious lesion s, anicteric PERIPHERAL PULSES: normal BREASTS: not examined MUSCULOSKELETAL: extremities unremark able, no clubbing, cyanosis or edema LYMPH NODES: no enlarged lymph no ursula,spleen normal RECTAL EXAM: not examined PSYCH: alert, oriented ORAL CAVITY: normal, unremarkable
--- OUTSIDE RECORDS SUMMARY | 2024-10-28 11:02 | XMS_ITS ---
Author Organization Stefan Sandoval III, MD Address [address] [place] [address] [place] [address] Care Team Providers Care Store Person Name Role Phone Stefan Sandoval Primary Care Provider [phone] Allergies Allergen (clinical drug ingredient) Drug/Non Drug Allergy documented on EMR Reaction Allergy Type Onset Date Status sulfamethoxazole / trimethoprim Bactrim rash Drug Allergy Active amoxicillin / clavulanate Augmentin Unknown Drug Allergy Active REASON FOR VISIT Osteoarthritis Left hip, Right knee, Hyperlipidemia, Obesity, Hypertension, Iron deficiency anemia Medications Medication SIG (Take, Route, Frequency, Duration) Notes Start Date End Date Status Ibuprofen 800 MG 1 tablet with food o r milk as needed Orally Three times a day 04/26/2018 Active Cyclobenzaprine HCl 10 MG 1 tablet at be dtime as needed Orally three times a day 05/24/2023 Active Lisinopril-hydroCHLOROthiazi d e 20-12.5 MG TAKE 1 TABLET BY MOUTH EVERY DAY Active Ferrous Sulfate 325 (65 Fe) MG 1 tablet Orally once a day 08/12/2023 Active Multi Vitamin - 1 tablet Orally Once a day Active Omeprazole 20 MG TAKE 1 CAPSULE [...] Non-User Current no n-smoker Vital Signs Temperature 96.4 degrees Fahrenheit 06/27/20 24 Blood pressure systolic 134 mm Hg 06/27/20 24 Blood pressure diastolic 79 mm Hg 024 Heart Rate 101 /min 06/27/2024 Height 62.5 in 06/27/2024 Weight 222 lbs 06/27/2024 BMI 39.95 kg/m2 06/27/2024 Encounters Encounter Location Date Provider Diagnosis Stefan Sandoval III, MD [address] [place] [address] [place] [address] 06/27/2024 Stefan Sandoval Obesity (BMI 30-39.9 ) E66.9 ; Essential hypertension I10 ; Osteoarthritis of multiple joints, unspecified osteoarthritis type M15.9 ; Former smoker Z87.891 ; Primary osteoarthritis of right knee M17.11 and Hyperlipidemia, unspecified hyperlipidemia type E78.5 Assessments Encounter Date Diagnosis (ICD Code) Assessment Notes Treat ment Notes Treatment Clinical Notes 06/27/2024 Obesity (BMI 30-39.9) (ICD-10 - E66.9) She has gained 2 pounds and her body mass index is 39. We discussed diet and nutrition. We made a plan to lose weight at a rate of one half of a pound per week through a diet restricted in calories and sodium combined with regular physical activity. 06/27/2024 Essential hypertension (ICD-10 - I10) Her blood pressure is stable today. I have recommended aggressive weight loss and sodium restriction. No change in medications was made. 06/27/2024 Osteoarthritis of multiple joints, unspecified osteoarthritis type (ICD-10 - M15.9) She will continue on current therapy at this time. 06/27/2024 Former smoker (ICD-10 - Z87.891) She seems highly motivated not to smoke. She has a plan to prevent relapse in times of stress and illness and weight loss. 06/27/2024 Primary osteoarthritis of right knee (ICD-10 - M17.11) She is going to have the joint replaced next week. She cultured Staphylococcus aureus, out of her nose and will use bacitracin twice a day in each nostril until surgery. Her EKG and blood work is adequate for treatment. She has given medical clearance for the procedure. 06/27/2024 Hyperlipidemia, unspecified hyperlipidemia type (ICD-10 - E78.5) Her total cholesterol is 257 which is higher than usual. We discussed cholesterol reduction dietts at length. Plan Of Treatment Medication Medication Name Sig Start Date Stop Date Notes Ibuprofen 800 MG 1 tablet with food o r milk as needed Orally Three times a day 04/26/2018 Cyclobenzaprine HCl 10 MG 1 tablet at be dtime as needed Orally three times a day 05/24/2023 Lisinopril-hydroCHLOROthiazi de 20-12.5 MG TAKE 1 TABLET BY MOUTH EVERY DAY Ferrous Sulfate 325 (65 Fe) MG 1 tablet Orally once a day 08/12/2023 Multi Vitamin - 1 tablet Orally Once a day Omeprazole 20 MG TAKE 1 CAPSULE BY MO UTH EVERY DAY Simvastatin 80 MG TAKE 1 TABLET BY ROHITH TH EVERY DAY IN THE EVENING Pending Test Test Name Order Date PROFILE, FASTING (COMPREHENSIVE METABOLI C) 06/27/2024 LIPID PANEL 06/27/2024 CBC w DIFF 06/27/2024 Next Appt Details Follow Up: 4 Months, Reason: ov review labs Provider Name:Stefan Sandoval, 11/01/2024 11:00:00 AM, [address] [place] [address] , [place] [address], [place], [address], Progress Notes * Desiree GAXIOLADOB: [birth year] (58 yo F)Acc No.[id number]:06/27/2024 Progress Notes Patient:?Desiree Gaxiola Provider:?Stefan Sandoval MD :[id number]???Age:58 Y???Sex:Female D ate:06/27/2024 Address:[address] [place], [place] [id number] Subjective: * Chief Complaints: * ???Osteoarthritis Left hip, Right kneeHyperlipidemiaObesityHypertensionIron deficiency anemia * HPI: ???COVID-19 Screening:? She returns for medical management. Her main problem is low back pain which flares up occasionally. Right now she says it is not too bad. She is avoiding heavy lifting and an undue exertion. She thinks the pain is because she is constipated lately. Her hip pain is improving. She is not smoking. She is trying hard to lose weight. Her iron deficiency anemia has resolved with therapy. ?Questions?Have you experienced fever, chills, cough, sore throat, shortness of breath, difficulty breathing, muscle aches, loss of taste or smell??No ?Have you been exposed to the virus within the last 10 days??No ?Have you travelled internationally in the last 10 days??No ?Have you been exposed to COVID-19 in the past??Yes * ROS:?General/Constitutional:?pain?only normal aches and pains.?Chills?denies.?Fatigue?admits.?Fever?denies.?ENT:?Decreased hearing?denies.?Respiratory:?Cough?denies.?Cardiovascular:?Chest pain with exertion?denies.?Dyspnea on exertion?denies.?Shortness of breath?denies.?Gastrointestinal:?Constipation?occasional.?Decreased appetite?denies.?Diarrhea?denies.?Heartburn?occasional.?Nausea?denies.?Rectal bleeding?denies.?Vomiting?denies.?Hematology:?bruising?denies.?petechiae?denies.?Swollen glands?none have been noted.?Genitourinary:?Frequent urination?at night.?Musculoskeletal:?Muscle aches?denies.?Painful joints?denies.?Sciatica?denies.?Weakness?denies.?Skin:?Itching?denies.?Rash?denies.?Skin lesion(s)?denies.?Neurologic:?Difficulty speaking?denies.?Dizziness?denies.?Headache?denies.?Low back pain?denies.?Psychiatric:?Depressed mood?which [...] a package of cigarettes per day. * Medications:?TakingMulti Vit shaffer - Tablet 1 tablet Orally Once a daySimvastatin 80 MG Tablet TAKE 1 TABLET BY MOUTH EVERY DAY IN THE EVENING Ibuprofen 800 MG Tablet 1 tablet with food or milk as needed Orally Three times a dayLisinopril-hydroCHLOROthiazide 20-12.5 MG Tablet TAKE 1 TABLET BY MOUTH EVERY DAY Omeprazole 20 MG Capsule Delayed Release TAKE 1 CAPSULE BY MOUTH EVERY DAY Taking Multi Vitamin - Tablet 1 tablet Orally Once a dayTaking Simvastatin 80 MG Tablet TAKE 1 TABLET BY MOUTH EVERY DAY IN THE EVENING Taking Ibuprofen 800 MG Tablet 1 tablet with food or milk as needed Orally Three times a dayTaking Lisinopril-hydroCHLOROthiazide 20-12.5 MG Tablet TAKE 1 TABLET BY MOUTH EVERY DAY Taking Omeprazole 20 MG Capsule Delayed Release TAKE 1 CAPSULE BY MOUTH EVERY DAY DiscontinuedCyclobenzaprine HCl 10 MG Tablet 1 tablet at bedtime as needed Orally three times a dayFerrous Sulfate 325 (65 Fe) MG Tablet 1 tablet Orally once a dayMedication List reviewed and reconciled with the patientDiscontinued Cyclobenzaprine HCl 10 MG Tablet 1 tablet at bedtime as needed Orally three times a dayDiscontinued Ferrous Sulfate 325 (65 Fe) MG Tablet 1 tablet Orally once a dayMedication List reviewed and reconciled with the patient * Allergies:?Augmentin: Allerg yBactrim: rash - Allergyno[Allergies Verified] Objective: * Vitals:?Ht: 62.5, Wt: 222, B SC:39.95, BP: 134/79, HR:101, Temp:96.4, Wt-k.7. * ???Past Orders: Lab:Ferritin * Order Date 06/23/2024 01/31/2024 10/21/2023 Ferritin 58 (Ref Range: 10-250 ng/mL) 61 (Ref Range: 10-250 ng/mL) 46 (Ref Range: 10-250 ng/mL) * Lab:[facility] [place]. Pane l Fast * Order Date 06/23/2024 01/31/2024 05/21/2023 Sodium 141 (Ref Range: 135-145 mmol/L) 140 (Ref Range: 135-145 mmol/L) 143 (Ref Range: 135-145 mmol/L) Bilirubin Total 0.4 (Ref Range: 0.0-1.0 mg/dL) 0.4 (Ref Range: 0.0-1.0 mg/dL) 0.5 (Ref Range: 0.0-1.0 mg/dL) Aspartate Amino Transferase 29 (Ref Range: 5-31 U/L) 31 (Ref Range: 5-31 U/L) 36?H (Ref Range: 5-31 U/L) Alanine Aminotransferase 25 (Ref Range: 0-31 U/L) 24 (Ref Range: 0-31 U/L) 22 (Ref Range: 0-31 U/L) Total Protein 7.2 (Ref Range: 6.5-8.0 g/dL) 8.1?H (Ref Range: 6.5-8.0 g/dL) 7.3 (Ref Range: 6.5-8.0 g/dL) Albumin Level 4.1 (Ref Range: 3.5-5.0 g/dL) 4.5 (Ref Range: 3.5-5.0 g/dL) 4.2 (Ref Range: 3.5-5.0 g/dL) Alkaline Phosphatase 66 (Ref Range: 39-117 U/L) 82 (Ref Range: 39-117 U/L) 84 (Ref Range: 39-117 U/L) Potassium 4.5 (Ref Range: 3.3-5.1 mmol/L) 4.8 (Ref Range: 3.3-5.1 mmol/L) 3.9 (Ref Range: 3.3-5.1 mmol/L) Chloride 107 (Ref Range: 96-108 mmol/L) 108 (Ref Range: 96-108 mmol/L) 111?H (Ref Range: 96-108 mmol/L) Carbon Dioxide 24 (Ref Range: 22-29 mmol/L) 24 (Ref Range: 22-29 mmol/L) 21?L (Ref Range: 22-29 mmol/L) Anion Gap 15 (Ref Range: 12-20) 13 (Ref Range: 12-20) 15 (Ref Range: 12-20) Blood Urea Nitrogen 13 (Ref Range: 9-16 mg/dL) 15 (Ref Range: 9-16 mg/dL) 16 (Ref Range: 9-16 mg/dL) Creatinine 0.74 (Ref Range: 0.5-1.4 mg/dL) 0.73 (Ref Range: 0.5-1.4 mg/dL) 0.70 (Ref Range: 0.5-1.4 mg/dL) Estimated Glomerular Filt Rate > 60 > 60 > 60 Glucose Fasting 120?H (Ref Range: 60-99 mg/dL) 129?H (Ref Range: 60-99 mg/dL) 99 (Ref Range: 60-99 mg/dL) Calcium 10.2 (Ref Range: 8.4-10.2 mg/dL) 10.2 (Ref Range: 8.4-10.2 mg/dL) 9.7 (Ref Range: 8.4-10.2 mg/dL) * Lab:Complete Blood Count Aut o Diff * Order Date 06/23/2024 01/31/2024 10/21/2023 White Blood Count 10.1 (Ref Range: 4.8-10.8 X10*3/uL) 13.8?H (Ref Range: 4.8-10.8 X10*3/uL) 8.5 (Ref Range: 4.8-10.8 X10*3/uL) Red Blood Count 5.13 (Ref Range: 4.20-5.50 X10*6/uL) 5.73?H (Ref Range: 4.20-5.50 X10*6/uL) 5.54?H (Ref Range: 4.20-5.50 X10*6/uL) Hemoglobin 14.6 (Ref Range: 12.0-16.0 g/dl) 16.0 (Ref Range: 12.0-16.0 g/dl) 14.7 (Ref Range: 12.0-16.0 g/dl) Hematocrit 45.2 (Ref Range: 37.0-47.0 %) 48.5?H (Ref Range: 37.0-47.0 %) 46.2 (Ref Range: 37.0-47.0 %) Mean Corpuscular Volume 88.1 (Ref Range: 80.0-98.0 fL) 84.6 (Ref Range: 80.0-98.0 fL) 83.4 (Ref Range: 80.0-98.0 fL) Mean Corpuscular Hemoglobin 28.5 (Ref Range: 27.0-33.0 pg) 27.9 (Ref Range: 27.0-33.0 pg) 26.5?L (Ref Range: 27.0-33.0 pg) Mean Corpuscular HGB Conc 32.3 (Ref Range: 31.0-35.0 g/dl) 33.0 (Ref Range: 31.0-35.0 g/dl) 31.8 (Ref Range: 31.0-35.0 g/dl) Red Cell Distribution Width 14.7 (Ref Range: 11.0-16.0 %) 14.8 (Ref Range: 11.0-16.0 %) 17.1?H (Ref Range: 11.0-16.0 %) Platelet Count 417?H (Ref Range: 160-400 X10*3/uL) 446?H (Ref Range: 160-400 X10*3/uL) 390 (Ref Range: 160-400 X10*3/uL) Mean Platelet Volume 10.4 (Ref Range: 9.4-12.3 fL) 10.1 (Ref Range: 9.4-12.3 fL) 10.5 (Ref Range: 9.4-12.3 fL) Neutrophils Percent Auto 51.8 (Ref Range: 45-73 %) 80.5?H (Ref Range: 45-73 %) 57.8 (Ref Range: 45-73 %) Imm Gran Pct Auto 1.3?H (Ref Range: 0.0-0.4 %) 0.8?H (Ref Range: 0.0-0.4 %) 0.4 (Ref Range: 0.0-0.4 %) Lymphocytes Percent Auto 34.9 (Ref Range: 20-40 %) 15.5?L (Ref Range: 20-40 %) 30.4 (Ref Range: 20-40 %) Monocytes Percent Auto 6.4 (Ref Range: 2-11 %) 2.9 (Ref Range: 2-11 %) 7.7 (Ref Range: 2-11 %) Eosinophils Percent Auto 5.0?H (Ref Range: 0-4 %) 0.1 (Ref Range: 0-4 %) 3.0 (Ref Range: 0-4 %) Basophils Percent Auto 0.6 (Ref Range: 0-2 %) 0.2 (Ref Range: 0-2 %) 0.7 (Ref Range: 0-2 %) NRBC Pct Auto 0.0 (Ref Range: 0.0-0.2 /100WBC) 0.0 (Ref Range: 0.0-0.2 /100WBC) 0.0 (Ref Range: 0.0-0.2 /100WBC) Neutrophils Absolute Auto 5.2 (Ref Range: 2.0-8.3 x10*3/uL) 11.1?H (Ref Range: 2.0-8.3 x10*3/uL) 4.9 (Ref Range: 2.0-8.3 x10*3/uL) Imm Gran Abs Auto 0.13?H (Ref Range: 0.00-0.03 X10*3/uL) 0.11?H (Ref Range: 0.00-0.03 X10*3/uL) 0.03 (Ref Range: 0.00-0.03 X10*3/uL) Lymphocytes Absolute Auto 3.5 (Ref Range: 1.2-4.9 X10*3/uL) 2.1 (Ref Range: 1.2-4.9 X10*3/uL) 2.6 (Ref Range: 1.2-4.9 X10*3/uL) Monocytes Absolute Auto 0.6 (Ref Range: 0.1-1.2 X10*3/uL) 0.4 (Ref Range: 0.1-1.2 X10*3/uL) 0.7 (Ref Range: 0.1-1.2 X10*3/uL) Eosinophils Absolute Auto 0.5?H (Ref Range: 0.0-0.4 X10*3/uL) 0.0 (Ref Range: 0.0-0.4 X10*3/uL) 0.3 (Ref Range: 0.0-0.4 X10*3/uL) Basophils Absolute Auto 0.1 (Ref Range: 0.0-0.2 X10*3/uL) 0.0 (Ref Range: 0.0-0.2 X10*3/uL) 0.1 (Ref Range: 0.0-0.2 X10*3/uL) NRBC Abs Auto 0.000 (Ref Range: 0.0-0.012 X10*3/uL) 0.000 (Ref Range: 0.0-0.012 X10*3/uL) 0.000 (Ref Range: 0.0-0.012 X10*3/uL) * Lab:Lipid Panel * Order Date 06/23/2024 01/31/2024 05/21/2023 Triglycerides 332?H (Ref Range: <150 mg/dL) 144 (Ref Range: <150 mg/dL) 233 (Ref Range: mg/dL) Cholesterol 249?H (Ref Range: <200 mg/dL) 257?H (Ref Range: <200 mg/dL) 233 (Ref Range: mg/dL) LDL Cholesterol Calculated 148?H (Ref Range: <100 mg/dL) 181?H (Ref Range: <100 mg/dL) 150 (Ref Range: mg/dl) HDL Cholesterol 35?L (Ref Range: >40 mg/dL) 48 (Ref Range: >40 mg/dL) 37 (Ref Range: mg/dL) * Examination: ???General Examination: ?GENERAL APPEARANCE:?pleasant, well nourished, well developed, in no acute distress, calm and relaxed , morbidly obese , , woman.?HEAD:?atraumatic, normocephalic.?EYES:?eomi, perrla, anicteric, conjugate.?EARS:?normal.?NOSE:?septum intact.?ORAL CAVITY:?normal, unremarkable.?NECK/THYROID:?no jugular venous distention, no carotid bruit, thyroid normal.?LYMPH NODES:?no enlarged lymph nodes,spleen normal.?SKIN:?no suspicious lesions, anicteric.?HEART:?no clicks, gallops, murmurs, or rubs, regular rhythm, S1, S2 normal, no s3, or vascular bruits.?LUNGS:?clear to auscultation .?BREASTS:?not examined.?ABDOMEN:?bowel sounds normal, no ascites, no organomegaly, no mass , centripital obesity.?RECTAL EXAM:?not examined.?MUSCULOSKELETAL:?extremities unremarkable, no clubbing, cyanosis or edema.?PERIPHERAL PULSES:?normal.?NEUROLOGIC:?alert and oriented, cranial nerves 2-12 grossly intact, deep tendon reflexes 2+ symmetrical, motor strength normal upper and lower extremities, sensory exam intact.?PSYCH:?alert, oriented.? Assessment: * Assessment: 1.?Obesity (BMI 30-39.9) - E 66.9 (Primary), She has gained 2 pounds and her body mass index is 39. We discussed diet and nutrition. We made a plan to lose weight at a rate of one half of a pound per week through a diet restricted in calories and sodium combined with regular physical activity.?2.?Essential hypertension - I10, Her blood pressure is stable today. I have recommended aggressive weight loss and sodium restriction. No change in medications was made.?3.?Osteoarthritis of multiple joints, unspecified osteoarthritis type - [...] She has given medical clearance for the procedure.?6.?Hyperlipidemia, unspecified hyperlipidemia type - E78.5, Her total cholesterol is 257 which is higher than usual. We discussed cholesterol reduction dietts at length.? Plan: * Treatment: 2.?Essential hypertension?LAB: PROFILE, FASTING (COMPREHENSIVE METABOLIC) ?LAB: LIPID PANEL ?LAB: CBC w DIFF 3.?Others? Continue Omeprazole Capsule Delayed Release, 20 MG, TAKE 1 CAPSULE BY MOUTH EVERY DAY;?Continue Simvastatin Tablet, 80 MG, TAKE 1 TABLET BY MOUTH EVERY DAY IN THE EVENING;?Continue Lisinopril-hydroCHLOROthiazide Tablet, 20-12.5 MG, TAKE 1 TABLET BY MOUTH EVERY DAY.?? * Procedure Codes:? * Preventive Medicine:? ??Counseling:?Care goal follow-up plan:?Counseling for abnormal BMI given?Yes ?Above Normal BMI Follow-up?Dietary management education, guidance, and counseling, Dietary needs education, Exercise promotion: strength training ?Smoking/Tobacco Use?Patient counseled on the dangers of tobacco use and urged to quit.?06/27/2024 * Follow Up:?4 Months (Reason: ov review labs) * Images: * Sign off status: Completed true * Provider:?Stefan Sandoval MD Date:?06/15 Generated for Printi ng/[place]g/eTransmitting on:?10/28/2024 11:02 AM EST History and Physical Notes * HPI (History of Present Illness) Category Sub-Category Detail Notes COVID-19 Screening Questions Have you had any new onset fever, chills, cough, congestion, sore throat, shortness of breath, muscle aches?: No Have you been exposed to the virus withi n the last 10 days?: No Have you travelled internationally in e last 10 days?: No Have you been exposed to COVID-19 in the past?: Yes Examination Category Sub-Category Detail Notes General Examination GENERAL APPEARANCE: pleasant , well nourished, well developed, in no acute distress, calm and relaxed , morbidly obese , , woman HEAD: atraumatic, normocep halic EYES: eomi, perrla, anicte abbey, conjugate EARS: normal NOSE: septum intact NECK/THYROID: no jugular venous di stention, no carotid bruit, thyroid normal HEART: no clicks, gallops, murmurs, or rubs, regular rhythm, S1, S2 normal, no s3, or vascular bruits LUNGS: clear to auscultatio n ABDOMEN: bowel sounds normal, no ascites, no organomegaly, no mass , centripital obesity NEUROLOGIC: alert and oriented, cranial nerves 2-12 [...]
--- OUTSIDE RECORDS SUMMARY | 2024-10-28 11:03 | XMS_ITS ---
Author Organization [facility] Address [address] [place] [address] Care Team Providers Care Area Operations Manager Name Role Phone Jaime RODRIGUEZ, Stefan Primary Care Provider Unavailab eulalia Kent Jr, Mark Soares REASON FOR VISIT pathology Encounters Encounter Location Date Provider Diagnosis [facility] [address] [place] [address] 12/29/2023 Mark Kent Jr PLAN OF TREATMENT Next Appt Details Provider Name:Mark flower Jr, 04/04/2025 11:10:00 AM, [address], [address], [place], [address],
--- OUTSIDE RECORDS SUMMARY | 2024-10-28 11:03 | XMS_ITS ---
Author Organization [facility] Address [address] [place] [address] Care Team Providers Care Tooth Clerk Name Role Phone Jaime RODRIGUEZ, Stefan Primary Care Provider Mark Sanford Jr REASON FOR VISIT GERD,RLQ PAIN PROBLEMS Problem Type ICD Code Onset Dates Problem Status W/U Status Risk SNOMED Code Notes Problem Chronic GERD (K21.9) Active confirmed Gastroesophagea l reflux disease ([id number]) Encounters Encounter Location Date Provider Diagnosis [facility] [place] [facility] Outpatient [address] [place] [phone] 12/22/2023 Mark Kent Jr Colon polyps K63.5 ; Chronic GERD K21.9 ; Abdominal pain, RLQ R10.31 and Other abnormality of red blood cells R71.8 ASSESSMENTS Encounter Date Diagnosis Assessment Notes Treatment Notes Treatment Clinical Notes 12/22/2023 Colon polyps (ICD-10 - K63.5) 12/22/2023 Chronic GERD (ICD-10 - K21.9) 12/22/2023 Abdominal pain, RLQ (ICD-10 - R10.31) 12/22/2023 Other abnormality of red blood cells (ICD-10 - R71.8) PLAN OF TREATMENT Next Appt Details Provider Name:Mark flower Jr, 04/04/2025 11:10:00 AM, [address], [address], [place], [address],
--- OUTSIDE RECORDS SUMMARY | 2024-10-28 11:03 | XMS_ITS | Patient Health Record ---
Author Organization Stefan Sandoval III, MD Address [address] [place] [address] [place] [address] Care Team Providers Care Systems Navigator Name Role Phone Stefan Sandoval Primary Care Provider Allergies Allergen (clinical drug ingredient) Drug/Non Drug Allergy documented on EMR Reaction Allergy Type Onset Date Status sulfamethoxazole / trimethoprim Bactrim rash Drug Allergy Active amoxicillin / clavulanate Augmentin Unknown Drug Allergy Active Results Component Value Reference Range Notes MM tomosynthesis screening B I Reviewed date:12/26/2023 10:01:56 AM Interpretation: Performing Lab: Notes/Report: [address] [place] [address] Mammography Report Signed Patient: Desiree Gaxiola MR#: [id number] 25 : 1965 Acct:[id number] Age/Sex: 58 / F ADM Date: 11/25/23 Loc: HO.MAMMO Attending Dr: Stefan Sandoval MD Ordering Physician: Stefan Sandoval MD Results: 1Negativ e Date of Service: 11/25/23 Follow Up: 1 Year From [facility] Mammogram Procedure(s): MM tomosynthesis screening BI Accession Number(s): [id number] cc: Stefan Sandoval MD EXAMINATION: MM SCREENING DIGITAL BREAST TOMOSYNTHESIS, BILATERAL CLINICAL INFORMATION: Screening. Asymptomatic. COMPARISON: Mammography: This study is compared with prior exams dating back to 2019. TECHNIQUE: Digital breast tomosynthesis is performed in both the craniocaudal and mediolateral oblique views along with computer-aided detection (CAD). Synthesized 2D images are generated from the tomosynthesis. FINDINGS: The breasts are almost entirely fatty (ACR BI-RADS breast composition Category a). There are no significant masses, abnormal calcifications, or other abnormalities. MM/MM tomosynthesis screening BI IMPRESSION: No mammographic evidence of malignancy. ASSESSMENT: BI-RADS BI-RADS 1 - Negative RECOMMENDATION: Routine annual mammography screening. 1 year F/U This examination should not preclude the clinical evaluation of a suspicious palpable abnormality. This patient's information was entered into a reminder system with a target due date for their next mammogram. Dictated By: Magdalena Arriaga MD Signed By: <Electronically signed by Magdalena Arriaga MD in OV> 12/13/23 1334 DD/ 1145 TD/TT: Steel Heater: [place] [facility] [address] [place] [address] Mammography Report Signed Patient: Desiree Gaxiola MR#: [id number] [birth year] : 1965 Acct:[id number] Age/Sex: 58 / F ADM Date: 11/25/23 Loc: SHRUTI Attending Dr: Stefan Sandoval MD Ordering Physician: Stefan Sandoval MD Results: 1Negativ e Date of Service: 11/25/23 Follow Up: 1 Year From Orig inal Mammogram Procedure(s): MM tomosynthesis screening BI Accession Number(s): [id number] cc: Stefan Sandoval MD EXAMINATION: MM SCREENING DIGITAL BREAST TOMOSYNTHESIS, BILATERAL CLINICAL INFORMATION: Screening. Asymptomatic. COMPARISON: Mammography: This study is compared with prior exams dating back to 2019. TECHNIQUE: Digital breast tomosynthesis is performed in both the craniocaudal and mediolateral oblique views along with computer-aided detection (CAD). Synthesized 2D image s are generated from the tomosynthesis. FINDINGS: The breasts are almo st entirely fatty (ACR BI-RADS breast composition Category a). There are no significant masses, abnormal calcifications, or other abnormalities. MM/MM tomosynthesis screening BI IMPRESSION: No mammographic evidence of malignancy. ASSESSMENT: BI-RADS BI-RADS 1 - Negative RECOMMENDATION: Routine annual mammography screening. 1 year F/U This examination should not preclude the clinical evaluation of a suspicious palpable abnormality. This patient's information was entered into a reminder system with a target due date for their next mammogram. Dictated By: Magdalena Arriaga MD Signed By: <Electronically signed by Magdalena Arriaga MD in OV> 12/13/23 1334 DD/ 1145 TD/TT: Steel Heater: MAMMOGRAM DIGITAL BILATERAL SCREEN Reviewed date:05/25/2024 02:37:53 PM Interpretation:undefined Performing Lab: Notes/Report: undefined Pathology Reviewed date:12/26/2023 10:01:56 AM Interpretation: Performing Lab:[facility], [address] [place] [phone] Notes/Report: -- ---- Name: Desiree Gaxiola Age/Sex: 58/F : 1965 [id number] Unit#: [id number] Attend Dr: Mark Kent MD Re12/22/23 Status : [facility] Location: [facility] Disch: -- ---- SPEC : [id number] RECD: 12/22/23 STATUS: DAIANA TOLEDO NUM: [id number] JACI: 12/22/23-[address]: Mark Kent MD ENTERED: 12/22/23-14 52 SP TYPE: Surgical OTHR DR: Stefan Sandoval MD ORDERED: HE Stain/10 , Gross Micro L4/5, IHC, Special st. 2, H. pylori Diagnosis A. Duodenum, biopsy: Chronic inactive duodenitis. B. Stomach, antrum, biopsy: Antral-type and oxyntic mucosa with mild chronic inactive inflammation; no Helicobacter organisms seen. C. 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 - No dysplasia seen. - Squamous mucosa within normal limits. D. Colon, 50 cm, polypectomy: Hyperplastic mucosal polyp. E. Colon, sigmoid, biopsy: Colonic mucosa within normal limits. Clinical History Pre-Op Dx: GERD, microcytosis, right lower quadrant pain Post-Op Dx: Upper: GERD, Lower: Colon polyp Microscopic Description A-E. Microscopic sections examined. No metaplastic changes are seen, supported by AB/PAS stains (B); no Helicobacter organisms are seen, supported by H. pylori immunostain (B). Material Received A. Duodenum bx B. Antrum bx C. EG juntion bx D. Colon polyp 50 cm E. Sigmoid colon bx Gross Description Received in 5 parts. Part A: Received in formalin labeled ?bx duodenum? is a 0.35 cm angulo-pink irregular tissue fragment, submitted in toto in a cassette labeled A. Part B: Received in formalin labeled ?bx antrum? is a 0.3 cm angulo-pink irregular tissue fragment, submitted in toto in a cassette labeled B. CONTINUED ON NEXT PAGE -- ---- Name: Desiree Gaxiola Age/Sex: 58/F : 1965 Unit#: [id number] Attend Dr: Mark Kent MD Re12/22/23 Status : [facility] Location: [facility] Disch: -- ---- SPEC : [id number] RECD: 12/22/23 STATUS: DAIANA TOLEDO NUM: [id number] JACI: 12/22/23-[address] [facility] [address]: Mark Kent MD ENTERED: 12/22/2314 52 SP TYPE: Surgical OTHR DR: Stefan Sandoval MD ORDERED: HE Stain/10 , Gross Micro L4/5, IHC, Special st. 2, H. pylori Gross Description (Continued) Part C: Received in formalin labeled ?bx EG junction? are 5 angulo-pink irregular and rectangular tissue fragments ranging from 0.1-0.3 cm, submitted in toto in a cassette labeled C. Part D: Received in formalin labeled ?colon polyp 50 cm? is a 0.5 cm angulo-pink papular tissue fragment, submitted in toto in a cassette labeled D. Part E: Received in formalin labeled ?bx sigmoid colon? are 2 craft-white irregular tissue fragments measuring 0.25 and 0.3 cm, submitted in toto in a cassette labeled E. CEDS Special studies ordered and performed: immunostain for H. pylori on B; AB/PAS stains on B Copies To: Stefan Sandoval MD [address] [place] [address], [address] [place] [address] Mark Kent MD [address] [place] [address] [address] [place] [address] -- ---- Signed (signature on file) Kenneth Gomez MD 12/23/23 1717 -- ---- END OF REPORT Complete Blood Count Auto Di ff Reviewed date:01/31/2024 03:44:24 PM Interpretation: Performing Lab:[facility], [address] [place] [phone] Notes/Report: White Blood Count 13.8 4.8-10.8 X10*3/uL Red Blood Count 5.73 4.20-5.50 X10*6/uL Hemoglobin 16.0 12.0-16.0 g/dl Hematocrit 48.5 37.0-47.0 % Mean Corpuscular Volume 84.6 80.0-98.0 fL Mean Corpuscular Hemoglobin 27.9 27.0-33.0 pg Mean Corpuscular HGB Conc 33.0 31.0-35.0 g/dl Red Cell Distribution Width 14.8 11.0-16.0 % Platelet Count 446 160-400 X10*3/uL Mean Platelet Volume 10.1 9.4-12.3 fL Neutrophils Percent Auto 80.5 45-73 % Imm Gran Pct Auto 0.8 0.0-0.4 % Lymphocytes Percent Auto 15.5 20-40 % Monocytes Percent Auto 2.9 2-11 % Eosinophils Percent Auto 0.1 0-4 % Basophils Percent Auto 0.2 0-2 % NRBC Pct Auto 0.0 0.0-0.2 /100WBC Neutrophils Absolute Auto 11.1 2.0-8.3 x10*3/u L Imm Gran Abs Auto 0.11 0.00-0.03 X10*3/uL Lymphocytes Absolute Auto 2.1 1.2-4.9 X10*3/u L Monocytes Absolute Auto 0.4 0.1-1.2 X10*3/uL Eosinophils Absolute Auto 0.0 0.0-0.4 X10*3/u L Basophils Absolute Auto 0.0 0.0-0.2 X10*3/uL NRBC Abs Auto 0.000 0.0-0.012 X10*3/uL Comprehensive [place]. Panel Fa Reviewed date:01/31/2024 03:44:24 PM Interpretation: Performing Lab:[facility], [address] [place] [phone] Notes/Report: Sodium 140 135-145 mmol/L Potassium 4.8 3.3-5.1 mmol/L Chloride 108 96-108 mmol/L Carbon Dioxide 24 22-29 mmol/L Anion Gap 13 12-20 Blood Urea Nitrogen 15 9-16 mg/dL Creatinine 0.73 0.5-1.4 mg/dL Estimated Glomerular Filt Rate > 60 NOTE: For -Congolese individuals, multiply the result by 1.210. Chronic Kidney Disease: Estimated GFR < 60 mL/min/1.73m2 Severe Kidney Disease: Estimated GFR < 15 mL/min/1.73m2 Glucose Fasting 129 60-99 mg/dL A fasting glucose of 126 mg/dl or greater on more than one occasion is considered diagnostic of diabetes. Calcium 10.2 8.4-10.2 mg/dL Bilirubin Total 0.4 0.0-1.0 mg/dL Aspartate Amino Transferase 31 5-31 U/L Alanine Aminotransferase 24 0-31 U/L Total Protein 8.1 6.5-8.0 g/dL Albumin Level 4.5 3.5-5.0 g/dL Alkaline Phosphatase 82 39-117 U/L Ferritin Reviewed date:01/31/2024 03:44:24 PM Interpretation: Performing Lab:[facility], [address] [place] [phone] Notes/Report: Ferritin 61 10-250 ng/mL Lipid Panel Reviewed date:01/31/2024 03:44:24 PM Interpretation: Performing Lab:[facility], [address] [place] [phone] Notes/Report: Triglycerides 144 <150 mg/dL Desirable Triglyceride: less than 150 mg/dL Borderline High Triglyceride 150-199 mg/dL High Triglyceride: 200-499 mg/dL Very High Triglyceride: greater than or equal to 5OO mg/dL Cholesterol 257 <200 mg/dL Desirable Cholesterol: less than 200 mg/dL Borderline High Cholesterol: 200-239 mg/dL High Cholesterol: greater than 239 mg/dL LDL Cholesterol Calculated 181 <100 mg/dL Desirable LDL: less than 100 mg/dL Near Optimal/Above Optimal LDL: 110-129 mg/dL Borderline High LDL: 130-159 mg/dL High LDL: 160-189 mg/dL Very High LDL: greater than or equal to 190 mg/dL HDL Cholesterol 48 >40 mg/dL Desirable HDL: greater than 40 mg/dL Note: This HDL assay may give artificially low results in patients with liver disease. Complete Blood Count Auto Di ff Reviewed date:06/26/2024 05:15:49 AM Interpretation: Performing Lab:[facility], [address] [place] [phone] Notes/Report: White Blood Count 10.1 4.8-10.8 X10*3/uL Red Blood Count 5.13 4.20-5.50 X10*6/uL Hemoglobin 14.6 12.0-16.0 g/dl Hematocrit 45.2 37.0-47.0 % Mean Corpuscular Volume 88.1 80.0-98.0 fL Mean Corpuscular Hemoglobin 28.5 27.0-33.0 pg Mean Corpuscular HGB Conc 32.3 31.0-35.0 g/dl Red Cell Distribution Width 14.7 11.0-16.0 % Platelet Count 417 160-400 X10*3/uL Mean Platelet Volume 10.4 9.4-12.3 fL Neutrophils Percent Auto 51.8 45-73 % Imm Gran Pct Auto 1.3 0.0-0.4 % Lymphocytes Percent Auto 34.9 20-40 % Monocytes Percent Auto 6.4 2-11 % Eosinophils Percent Auto 5.0 0-4 % Basophils Percent Auto 0.6 0-2 % NRBC Pct Auto 0.0 0.0-0.2 /100WBC Neutrophils Absolute Auto 5.2 2.0-8.3 x10*3/u L Imm Gran Abs Auto 0.13 0.00-0.03 X10*3/uL Lymphocytes Absolute Auto 3.5 1.2-4.9 X10*3/u L Monocytes Absolute Auto 0.6 0.1-1.2 X10*3/uL Eosinophils Absolute Auto 0.5 0.0-0.4 X10*3/u L Basophils Absolute Auto 0.1 0.0-0.2 X10*3/uL NRBC Abs Auto 0.000 0.0-0.012 X10*3/uL Comprehensive [place]. Panel Fa st Reviewed date:06/26/2024 05:15:49 AM Interpretation: Performing Lab:[facility], [address] [place] [phone] Notes/Report: Sodium 141 135-145 mmol/L Potassium 4.5 3.3-5.1 mmol/L Chloride 107 96-108 mmol/L Carbon Dioxide 24 22-29 mmol/L Anion Gap 15 12-20 Blood Urea Nitrogen 13 9-16 mg/dL Creatinine 0.74 0.5-1.4 mg/dL Estimated Glomerular Filt Rate > 60 NOTE: For -Congolese individuals, multiply the result by 1.210. Chronic Kidney Disease: Estimated GFR < 60 mL/min/1.73m2 Severe Kidney Disease: Estimated GFR < 15 mL/min/1.73m2 Glucose Fasting 120 60-99 mg/dL A fasting glucose from 100-125 mg/dl is considered impaired (pre-diabetes). Calcium 10.2 8.4-10.2 mg/dL Bilirubin Total 0.4 0.0-1.0 mg/dL Aspartate Amino Transferase 29 5-31 U/L Alanine Aminotransferase 25 0-31 U/L Total Protein 7.2 6.5-8.0 g/dL Albumin Level 4.1 3.5-5.0 g/dL Alkaline Phosphatase 66 39-117 U/L Ferritin Reviewed date:06/26/2024 05:15:49 AM Interpretation: Performing Lab:[facility], [address] [place] [phone] Notes/Report: Ferritin 58 10-250 ng/mL Lipid Panel Reviewed date:06/26/2024 05:15:49 AM Interpretation: Performing Lab:[facility], [address] [place] [phone] Notes/Report: Triglycerides 332 <150 mg/dL Desirable Triglyceride: less than 150 mg/dL Borderline High Triglyceride 150-199 mg/dL High Triglyceride: 200-499 mg/dL Very High Triglyceride: greater than or equal to 5OO mg/dL Cholesterol 249 <200 mg/dL Desirable Cholesterol: less than 200 mg/dL Borderline High Cholesterol: 200-239 mg/dL High Cholesterol: greater than 239 mg/dL LDL Cholesterol Calculated 148 <100 mg/dL Desirable LDL: less than 100 mg/dL Near Optimal/Above Optimal LDL: 110-129 mg/dL Borderline High LDL: 130-159 mg/dL High LDL: 160-189 mg/dL Very High LDL: greater than or equal to 190 mg/dL HDL Cholesterol 35 >40 mg/dL Desirable HDL: greater than 40 mg/dL Note: This HDL assay may give artificially low results in patients with liver disease. Reason For Referral No Information Medications Medication SIG (Take, Route, Frequency, Duration) [...] tablet Orally once a day 08/12/2023 Active Immunizations Vaccine Route Administration Date Status Comme nts Influenza no Preserv 3 and > Unknown 09/10/2019 Administered Influenza, quad IM Intramuscular 09/14/2022 Administered Influenza, quad IM Intramuscular 10/27/2023 Administered Social History Tobacco Use: Social History Observation Description Date Details (start date - stop date) Former Smoker NA - NA Sex Assigned At : Social History Observation Description Sex Assigned At Female Tobacco Use/Smoking Question Answer Notes Patient is a former smoker How long has it been since you last smoked? 5-10 years Additional Findings: Tobacco Non-User Current no n-smoker Alcohol Screen Question Answer Notes Did you have a drink containing alcohol in the p ast year? No Points 0 Interpretation Negative Problems Problem Type SNOMED Code ICD Code Onset Dates Problem Status W/U Status Risk Notes Problem 4102388 Former smoker (Z87.891) Active confirmed She seems highly motivated not to smoke. She has a plan to prevent relapse in times of stress and illness and weight loss. Problem 447343594 Obesity (BMI 30-39.9) (E66.9) Active confirmed She has gained 2 pounds and her body mass index is 39. We discussed diet and nutrition. We made a plan to lose weight at a rate of one half of a pound per week through a diet restricted in calories and sodium combined with regular physical activity. Problem Essential hypertension (65679880) Essential hypertension (I10) Active confirmed Her blood pressure is stable today. I have recommended aggressive weight loss and sodium restriction. No change in medications was made. 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 She will have periodic bone density tests. Problem 544907847 Osteoarthritis of multiple joints, unspecified osteoarthritis type (M15.9) Active confirmed She will continue on current therapy at this time. Problem 06654324 Iron deficiency anemia, unspecified iron deficiency anemia type (D50.9) Active confirmed Her ferritin is in the normal range at the low end. Her iron therapy was continued. Problem 858530983848129 Primary osteoarthritis of right knee (M17.11) Active confirmed She is going to have the joint replaced next week. She cultured Staphylococcus aureus, out of her nose and will use bacitracin twice a day in each nostril until surgery. Her EKG and blood work is adequate for treatment. She has given medical clearance for the procedure. Problem 35187731 Hyperlipidemia, unspecified hyperlipidemia type (E78.5) Active confirmed Her total cholesterol is 257 which is higher than usual. We discussed cholesterol reduction dietts at length. Problem 613293655508147 Primary osteoarthritis of left hip (M16.12) Active confirmed She continues under the care of an orthopedist, Dr. Espinosa. Problem 599515326 Diverticulitis (K57.92) Active confirmed This process and the pain have completely resolved Problem Calcaneal spur (28620176) Bone spur of inferior portion of calcaneus (M77.30) Active confirmed The pain in the foot has resolved and she is walking without difficultyy from foot pain. She continues to have knee and hip pain. Vital Signs Heart Rate 101 /min 06/27/2024 Temperature 96.4 degrees Fahrenheit 06/27/2024 Blood pressure diastolic 79 mm Hg 06/27/2024 Height 62.5 in 06/27/2024 Blood pressure systolic 134 mm Hg 06/27/2024 Weight 222 lbs 06/27/2024 BMI 39.95 kg/m2 06/27/2024 Encounters Encounter Location Date Provider Diagnosis Stefan Sandoval III, MD [address] [place] [address] [address] [place] [phone] 02/09/2024 Stefan Ojedane Obesity (BMI 30-39.9 ) E66.9 ; Osteoarthritis of multiple joints, unspecified osteoarthritis type M15.9 ; Bone spur of inferior portion of calcaneus M77.30 ; Former smoker Z87.891 ; Hyperlipidemia, unspecified hyperlipidemia type E78.5 ; Primary osteoarthritis of right knee M17.11 and Essential hypertension I10 Stefan Sandoval III, MD [address] [place] [address] [place] [address] 03/27/2024 Stefan Salinasrne Obesity (BMI 30-39.9 ) E66.9 ; Hyperlipidemia, unspecified hyperlipidemia type E78.5 ; Osteoarthritis of multiple joints, unspecified osteoarthritis type M15.9 ; Former smoker Z87.891 ; Primary osteoarthritis of right knee M17.11 and Essential hypertension I10 Stefan Sandoval III, MD [address] [place] [address] [place] [address] 06/27/2024 Stefan Sandoval Obesity (BMI 30-39.9 ) E66.9 ; Essential hypertension I10 ; Osteoarthritis of multiple joints, unspecified osteoarthritis type M15.9 ; Former smoker Z87.891 ; Primary osteoarthritis of right knee M17.11 and Hyperlipidemia, unspecified hyperlipidemia type E78.5 Assessments Encounter Date Diagnosis (ICD Code) Assessment Notes Treat ment Notes Treatment Clinical Notes 02/09/2024 Obesity (BMI 30-39.9) (ICD-10 - E66.9) Her weight has been stable Her body mass index is 37.8. We discussed diet and nutrition. We made a plan to lose weight at a rate of one half of a pound per week through a diet restricted in calories and sodium combined with regular physical activity. 02/09/2024 Osteoarthritis of multiple joints, unspecified osteoarthritis type (ICD-10 - M15.9) She will continue on current therapy at this time. 03/27/2024 Obesity (BMI 30-39.9) (ICD-10 - E66.9) [...] We discussed cholesterol reduction dietts at length. 06/27/2024 Obesity (BMI 30-39.9) (ICD-10 - E66.9) [...] restriction. No change in medications was made. 02/09/2024 Bone spur of inferior portion of calcaneus (ICD-10 - M77.30) The pain in the foot has resolved and she is walking without difficultyy from foot pain. She continues to have knee and hip pain. 03/27/2024 Osteoarthritis of multiple joints, unspecified osteoarthritis type (ICD-10 - M15.9) She will continue on current therapy at this time. 06/27/2024 Osteoarthritis of multiple joints, unspecified osteoarthritis type (ICD-10 - M15.9) She will continue on current therapy at this time. 02/09/2024 Former smoker (ICD-10 - Z87.891) She seems highly motivated not to smoke. She has a plan to prevent relapse in times of stress and illness and weight loss. 03/27/2024 Former smoker (ICD-10 - Z87.891) She seems highly motivated not to smoke. She has a plan to prevent relapse in times of stress and illness and weight loss. 06/27/2024 Former smoker (ICD-10 - Z87.891) She seems highly motivated not to smoke. She has a plan to prevent relapse in times of stress and illness and weight loss. 02/09/2024 Hyperlipidemia, unspecified hyperlipidemia type (ICD-10 - E78.5) Her total cholesterol has been rising over the last several months. She is now out of her range. She has continued to simvastatin 80 mg daily. She reports that she has recently been intolerant of her weight reduction strategy, although she has lost 2 pounds. We discussed diet and nutrition today at length. She will attempt to lose weight and consume a low animal fat diet. 03/27/2024 Primary osteoarthritis of right knee (ICD-10 - M17.11) She is going to have the joint replaced next week. She cultured Staphylococcus aureus, out of her nose and will use bacitracin twice a day in each nostril until surgery. Her EKG and blood work is adequate for treatment. She has given medical clearance for the procedure. 06/27/2024 Primary osteoarthritis of right knee (ICD-10 - M17.11) She is going to have the joint replaced next week. She cultured Staphylococcus aureus, out of her nose and will use bacitracin twice a day in each nostril until surgery. Her EKG and blood work is adequate for treatment. She has given medical clearance for the procedure. 02/09/2024 Primary osteoarthritis of right knee (ICD-10 - [...] recommended aggressive weight loss and sodium restriction. 06/27/2024 Hyperlipidemia, unspecified hyperlipidemia type (ICD-10 - E78.5) Her total cholesterol is 257 which is higher than usual. We discussed cholesterol reduction dietts at length. 02/09/2024 Essential hypertension (ICD-10 - I10) Her blood pressure has been currently stable and no change in her regimen was needed today. I have recommended aggressive weight loss and sodium restriction. Plan Of Treatment Pending Test Test Name Order Date PROFILE, FASTING (COMPREHENSIVE METABOLI C) 06/27/2024 PROFILE, FASTING (COMPREHENSIVE METABOLI C) 10/27/2023 LIPID PANEL 06/27/2024 CBC w DIFF 06/27/2024 CBC WITH AUTO DIFF 10/27/2023 Ferritin 10/27/2023 Lipid Panel 10/27/2023 Next Appt Details Provider Name:Stefan Salinasrne, 11/01/2024 11:00:00 AM, [address] [place] [address] , [facility] [place], [place], [address], Insurance Providers Payer Name Payer Address Payer Phone Subscriber Number Group Number Insured Name Patient Relationship to Insured Coverage Start Date Coverage End Date [facility] [address] [facility] [place] [address] [phone] [id number] Desiree Gaxiola Self - patient is the insured Medical (General) History Medical History History ICD Code TOS (thoracic outlet syndrome) 353.0 hyperlipidemia GERD laceration right first toe 2014 LMP 2012 agge 46 hypertension obesity osteoarthritis cholecystectomy 2000 former smoker Surgical History Surgery Date(Month/Year) right knee replacement 02/03/22 two colonoscopies, Dr. Cloud Left knee replacement, [facility] 2014 Hemorrhoid removed 2007 Perforated ear patch 2004 Left hip replacement 2002 Right hip replacement 2001 cholecystectomy 2000 Arthroscopic right knee surgery 1999 Left ear myringotomy 1977 Left knee dislocation 1975
--- OUTSIDE RECORDS SUMMARY | 2024-10-28 11:03 | XMS_ITS ---
Author Organization [facility] Address [address] [place] [address] Care Team Providers Care Maintenance Worker Name Role Phone Jaime RODRIGUEZ, Stefan Primary Care Provider Mark Sanford Jr Unavailable [phone] ALLERGIES Allergen (clinical drug ingredient) Drug/Non Drug Allergy documented on EMR Reaction Allergy Type Onset Date Status sulfamethoxazole / trimethoprim Bactrim Unknown Drug Allergy Active amoxicillin / clavulanate Augmentin Unknown Drug Allergy Active REASON FOR VISIT Patient presents today for ocasio's MEDICATIONS Medication SIG (Take, Route, Frequency, Duration) Notes Start Date End Date Status Cyclobenzaprine HCl 10 MG as directed Or ally Once a day Active Iron 325 (65 Fe) MG 1 tablet Orally Thre e times a Week for 30 day(s) Active MiraLax (colon prep) 17 GM/SCOOP mixed with Gatorade or Crystal Light Orally begin at 5:00 p.m. the day before the procedure for 1 day 12/01/2023 Active Simvastatin 80 MG TAKE 1 TABLET IN THE EVENING ONCE A DAY Orally Once a day Active Omeprazole 20 MG 1 capsule 30 minutes before morning meal Orally Once a day Active Lisinopril-hydroCHLOROthiazi d e 20-12.5 MG 1 tablet Orally Once a day Active SOCIAL HISTORY Tobacco Use: Social History Observation Description Date Details (start date - stop date) Former Smoker NA - NA Sex Assigned At : Social History Observation Description Sex Assigned At Unknown Tobacco Use/Smoking Question Answer Notes Patient is a former smoker Alcohol Screen Question Answer Notes Did you have a drink contain ing alcohol in the past year? Yes How often did you have a dri nk containing alcohol in the past year? Monthly or less (1 point) How many drinks did you have on a typical day when you were drinking in the past year? 1 or 2 drinks (0 point) How often did you have 6 or more drinks on one occasion in the past year? Never (0 point) Points 1 Interpretation Negative PROBLEMS Problem Type ICD Code Onset Dates Problem Status W/U Status Risk SNOMED Code Notes Problem Ocasio's esophagus without dysplasia (K22.70) Active confirmed 620698750 Problem Colon cancer screening (Z12.11) Active confirmed 289486214 VITAL SIGNS BMI 41.17 kg/m2 04/03/2024 Blood pressure systolic 000 mm Hg 04/03/20 24 Blood pressure diastolic 00 mm Hg 024 Height 62 in 04/03/2024 Temperature 98.1 degrees Fahrenheit 04/03/20 24 Weight 225 lb 2 oz lbs 04/03/2024 Encounters Encounter Location Date Provider Diagnosis [facility] [address] [place] [address] 04/03/2024 Mark Kent Jr Ocasio's esophagus without dysplasia K22.70 and Colon cancer screening Z12.11 ASSESSMENTS Encounter Date Diagnosis Assessment Notes Treatment Notes Treatment Clinical Notes 04/03/2024 Ocasio's esophagus without dysplasia (ICD-10 - K22.70) Ocasio esophagus material was printed 04/03/2024 Colon cancer screening (ICD-10 - Z12.11) PLAN OF TREATMENT Treatment Notes Assessment Notes Ocasio's esophagus without dysplasia Ba rrett esophagus material was printed Next Appt Details Follow Up: 1 Year, Reason: Provider Name:Mark flower Jr, 04/04/2025 11:10:00 AM, [address] [place] [address], [address], [place], [address],
--- OUTSIDE RECORDS SUMMARY | 2024-10-28 11:04 | XMS_ITS | Patient Health Record ---
Author Organization [facility] Address [address] [place] [address] Care Team Providers Care Dialysis Social Worker Name Role Phone Jaime RODRIGUEZ, Stefan Primary Care Provider Mark Sanford Jr Unavailable ALLERGIES Allergen (clinical drug ingredient) Drug/Non Drug Allergy documented on EMR Reaction Allergy Type Onset Date Status sulfamethoxazole / trimethoprim Bactrim Unknown Drug Allergy Active amoxicillin / clavulanate Augmentin Unknown Drug Allergy Active RESULTS Component Value Reference Range Notes Pathology Reviewed date:12/29/2023 08:36:18 AM Interpretation: Performing Lab:[facility], [address] [place] [address] Notes/Report: REASON FOR REFERRAL No Information MEDICATIONS Medication SIG (Take, Route, Frequency, Duration) [...] 1 tablet Orally Once a day Active IMMUNIZATIONS Vaccine Route Administration Date Status Comme nts Influenza Unknown 09/13/2019 Administered Influenza Unknown 11/15/2023 Administered Influenza Unknown 09/07/2023 Administered SOCIAL HISTORY Tobacco Use: Social History Observation [...] W/U Status Risk SNOMED Code Notes Problem Diverticulitis large intestine w/o perforation or abscess w/bleeding (K57.33) Active confirmed 3535213 Problem Gastroesophageal reflux disease, unspecified whether esophagitis present (K21.9) Active confirmed 906086621 Problem RLQ abdominal pain (R10.31) Active confirmed 331411604 Problem Microcytosis (R71.8) Active confirmed 323713397 Problem Chronic GERD (K21.9) Active confirmed Gastroesophagea l reflux disease (591159911) Problem Abreu's esophagus without dysplasia (K22.70) Active confirmed 212151860 Problem Colon cancer screening (Z12.11) Active confirmed 157957830 VITAL SIGNS Temperature 98.1 degrees Fahrenheit 04/03/2024 Blood pressure diastolic 00 mm Hg 04/03/2024 Height 62 in 04/03/2024 Blood pressure systolic 000 mm Hg 04/03/2024 Weight 225 lb 2 oz lbs 04/03/2024 BMI 41.17 kg/m2 04/03/2024 Encounters Encounter Location Date Provider Diagnosis [facility] Out[facility] [address] [place], [place] [phone] 12/22/2023 Mark Kent Jr Colon polyps K63.5 ; Chronic GERD K21.9 ; Abdominal pain, RLQ R10.31 and Other abnormality of red blood cells R71.8 [facility] [address] [place] [address] 12/01/2023 Mark Kent Jr Gastroesophageal reflux disease, unspecified whether esophagitis present K21.9 ; RLQ abdominal pain R10.31 and Microcytosis R71.8 [facility] [address] [address] [place] [address] 04/03/2024 Mark Kent Jr Abreu's esophagus without dysplasia K22.70 and Colon cancer screening Z12.11 [facility] [address] [facility] [facility] [address] [place] [phone] 12/02/2023 Mark Kent Jr [facility] [address] [place] [phone] 12/02/2023 Mark Kent Jr [facility] [address] [place] [address] [place] [address] 12/29/2023 Mark Kent Jr ASSESSMENTS Encounter Date Diagnosis Assessment Notes Treatment Notes Treatment Clinical Notes 12/22/2023 Colon polyps (ICD-10 - K63.5) 12/22/2023 Chronic GERD (ICD-10 - K21.9) 12/01/2023 RLQ abdominal pain (ICD-10 - R10.31) 12/01/2023 Gastroesophageal ref lux disease, unspecified whether esophagitis present (ICD-10 - K21.9) Endoscopy material was printed 04/03/2024 Colon cancer screeni ng (ICD-10 - Z12.11) 04/03/2024 Abreu's esophagus without dysplasia (ICD-10 - K22.70) Abreu esophagus material was printed 12/22/2023 Abdominal pain, RLQ (ICD-10 - R10.31) 12/01/2023 Microcytosis (ICD-10 - R71.8) 12/22/2023 Other abnormality of red blood cells (ICD-10 - R71.8) PLAN OF TREATMENT Future Test Test Name Order Date COLONOSCOPY 12/13/2019 UPPER GI ENDOSCOPY 12/01/2023 COLONOSCOPY 12/01/2023 Next Appt Details Provider Name:Mark flower Jr, 04/04/2025 11:10:00 AM, [address] [place] [address], Suite [facility], [place], [address], Insurance Providers Payer Name Payer Address Payer Phone Subscriber Number Group Number Insured Name Patient Relationship to Insured Coverage Start Date Coverage End Date [facility] [address] [place] [phone] [id number] GABE PIPER Self - patient is the insured MEDICAL (GENERAL) HISTORY Medical History History ICD Code Hypertension Hyperlipidemia Gastroesophageal reflux dise ase, EGD 01/08, no H. pylori, changes of Abreu's, 2 year followup Osteoarthritis Thoracic outlet syndrome Elevated body mass index Colonoscopy 01/08, hyperplastic polyp, fi ve-year followup Surgical History Surgery Date(Month/Year) left hip replacement 2001 right hip replacement 2000 left knee replacement 2014 cholecystectomy Rectal skin tag excision ear surgery knee surgery knee replacement right 2021
[2024-10-28 13:35] LABS: MANUAL DIFF FLAG NO
[2024-10-28 13:39] LABS: Basophils Absolute Auto 0.1 X10*3/uL (0.0-0.2); Basophils Percent Auto 0.6 % (0-2); Eosinophils Absolute Auto 0.3 X10*3/uL (0.0-0.4); Eosinophils Percent Auto 2.8 % (0-4); Hematocrit 45.1 % (37.0-47.0); Hemoglobin 14.9 g/dl (12.0-16.0); Imm Gran Abs Auto 0.03 X10*3/uL (0.00-0.03); Imm Gran Pct Auto 0.3 % (0.0-0.4); Lymphocytes Absolute Auto 2.7 X10*3/uL (1.2-4.9); Lymphocytes Percent Auto 26.5 % (20-40); Mean Corpuscular Hemoglobin 28.2 pg (27.0-33.0); Mean Corpuscular Volume 85.4 fL (80.0-98.0); Mean Platelet Volume 10.7 fL (9.4-12.3); Monocytes Absolute Auto 0.7 X10*3/uL (0.1-1.2); Neutrophils Absolute Auto 6.4 x10*3/uL (2.0-8.3); Neutrophils Percent Auto 62.8 % (45-73); Platelet Count 374 X10*3/uL (160-400); Red Blood Count 5.28 X10*6/uL (4.20-5.50); Red Cell Distribution Width 14.7 % (11.0-16.0); White Blood Count 10.2 X10*3/uL (4.8-10.8)
[2024-10-28 13:58] LABS: Alanine Aminotransferase 24 U/L (0-31); Albumin Level 4.5 g/dL (3.5-5.0); Alkaline Phosphatase 77 U/L (39-117); Anion Gap 15 (12-20); Aspartate Amino Transferase 50 U/L (5-31); Bilirubin Total 0.7 mg/dL (0.0-1.0); Blood Urea Nitrogen 14 mg/dL (9-16); Calcium 9.9 mg/dL (8.4-10.2); Carbon Dioxide 22 mmol/L (22-29); Chloride 107 mmol/L (96-108); Cholesterol 165 mg/dL (<200); Estimated Glomerular Filt Rate > 60; Glucose Fasting 131 mg/dL (60-99); HDL Cholesterol 35 mg/dL (>40); LDL Cholesterol Calculated 87 mg/dL (<100); Potassium 3.4 mmol/L (3.3-5.1); Sodium 141 mmol/L (135-145); Triglycerides 216 mg/dL (<150)
== END 2024-10-28 11:01 | disposition home or self-care (01) ==
LOC: HO.HMGCLDS 11:00
PROVIDERS: PCP Internal Medicine Medical Oncology; Visit Provider Internal Medicine Medical Oncology
DX: E66.9 Obesity, unspecified (principal); I10 Essential (primary) hypertension
CPT/HCPCS: 36415; 80053; 80061; 85025

== ENCOUNTER 2024-11-29 10:59 | Outpatient (REF) | payer OTHER, SELFPAY | END 2024-11-29 11:00 | disposition home or self-care (01) | LOC: HO.MAMMO 10:59 | PROVIDERS: PCP Internal Medicine Medical Oncology; Visit Provider Internal Medicine Medical Oncology | DX: Z12.31 Encounter for screening mammogram for malignant neoplasm of breast (principal) | CPT/HCPCS: 77063; 77067 ==

== ENCOUNTER 2025-01-27 13:11 | Outpatient (REF) | payer OTHER, SELFPAY ==
[2025-01-27 15:23] LABS: MANUAL DIFF FLAG NO
[2025-01-27 15:24] LABS: Basophils Absolute Auto 0.1 X10*3/uL (0.0-0.2); Basophils Percent Auto 0.4 % (0-2); Eosinophils Absolute Auto 0.5 X10*3/uL (0.0-0.4); Eosinophils Percent Auto 3.9 % (0-4); Hematocrit 45.8 % (37.0-47.0); Hemoglobin 15.5 g/dl (12.0-16.0); Imm Gran Abs Auto 0.06 X10*3/uL (0.00-0.03); Imm Gran Pct Auto 0.4 % (0.0-0.4); Lymphocytes Absolute Auto 3.3 X10*3/uL (1.2-4.9); Lymphocytes Percent Auto 24.3 % (20-40); Mean Corpuscular HGB Conc 33.8 g/dl (31.0-35.0); Mean Corpuscular Volume 82.8 fL (80.0-98.0); Mean Platelet Volume 10.2 fL (9.4-12.3); Monocytes Percent Auto 7.2 % (2-11); Neutrophils Absolute Auto 8.5 x10*3/uL (2.0-8.3); Neutrophils Percent Auto 63.8 % (45-73); Platelet Count 429 X10*3/uL (160-400); Red Blood Count 5.53 X10*6/uL (4.20-5.50); Red Cell Distribution Width 15.1 % (11.0-16.0); White Blood Count 13.4 X10*3/uL (4.8-10.8)
[2025-01-27 15:45] LABS: Alanine Aminotransferase 23 U/L (0-31); Albumin Level 4.3 g/dL (3.5-5.0); Anion Gap 14 (12-20); Aspartate Amino Transferase 50 U/L (5-31); Bilirubin Total 0.8 mg/dL (0.0-1.0); Blood Urea Nitrogen 9 mg/dL (9-16); Calcium 10.3 mg/dL (8.4-10.2); Carbon Dioxide 24 mmol/L (22-29); Chloride 107 mmol/L (96-108); Cholesterol 166 mg/dL (<200); Estimated Glomerular Filt Rate > 60; Glucose Fasting 100 mg/dL (60-99); HDL Cholesterol 39 mg/dL (>40); LDL Cholesterol Calculated 94 mg/dL (<100); Potassium 4.1 mmol/L (3.3-5.1); Sodium 141 mmol/L (135-145); Total Protein 7.9 g/dL (6.5-8.0); Triglycerides 167 mg/dL (<150)
[2025-01-27 15:59] LABS: Alkaline Phosphatase 75 U/L (39-117)
[2025-01-28 06:04] LABS: Estimated Average Glucose 120 mg/dL; Hemoglobin A1c % 5.8 % (<6.0)
== END 2025-01-27 13:12 | disposition home or self-care (01) ==
LOC: HO.HMGCLDS 13:11
PROVIDERS: PCP Internal Medicine Medical Oncology; Visit Provider Internal Medicine Medical Oncology
DX: E66.9 Obesity, unspecified (principal); E78.5 Hyperlipidemia, unspecified; R73.09 Other abnormal glucose
CPT/HCPCS: 36415; 80053; 80061; 83036; 85025

== ENCOUNTER 2025-03-22 06:16 | Outpatient (REF) | payer OTHER, SELFPAY ==
--- OUTSIDE RECORDS SUMMARY | 2025-03-22 06:19 | XMS_ITS ---
Author Organization [facility] Address [address] [place] [address] Care Team Providers Care Heavy Equipment Service Technician Name Role Phone Jaime RODRIGUEZ, Stefan Primary Care Provider Kwesi Mckeon Jr, Mark Soares REASON FOR VISIT GERD,RLQ PAIN Problems Problem Type SNOMED Code ICD Code Onset Dates Problem Status W/U Status Risk Notes Problem Gastroesophageal reflux disease (773076329) Chronic GERD (K21.9) Active confirmed Encounters Encounter Location Date Provider Diagnosis [facility] [address] [place] [phone] 12/22/2023 Mark Kent Jr Colon polyps K63.5 ; Chronic GERD K21.9 ; Abdominal pain, RLQ R10.31 and Other abnormality of red blood cells R71.8 Assessments Encounter Date Diagnosis (ICD Code) Assessment Notes Treatment Notes Treatment Clinical Notes Section Notes 12/22/2023 Colon polyps (ICD-10 - K63.5) 12/22/2023 Chronic GERD (ICD-10 - K21.9) 12/22/2023 Abdominal pain, RLQ (ICD-10 - R10.31) 12/22/2023 Other abnormality of red blood cells (ICD-10 - R71.8) Plan Of Treatment Next Appt Details Provider Name:Mark flower Jr, 04/04/2025 11:00:00 AM, [address], [address], [place], [address], Progress Notes * SARIAH PIPER: 6 (59 yo F)Acc No.[id number]:12/22/2023 EGD and COL/MAC Patient:GABE DURAND Provider:?Mark Kent MD :1965???Age:58 Y???Sex:Female D ate:12/22/2023 Address:[address] [place], [place] [phone] Pcp:Stefan Sandoval MD Subjective: * Chief Complaints: * ???1. GERD,RLQ PAIN. * Medical History:? Objective: * Vitals:? Assessment: * Assessment: 1.?Colon polyps - K63.5 (Bettye pete)???2.?Chronic GERD - K21.9???3.?Abdominal pain, RLQ - R10.31???4.?Other abnormality of red blood cells - R71.8??? Plan: * Treatment: * Procedure Codes:?68791 LESIO N REMOVAL COLONOSCOPY, 18263 COLONOSCOPY AND BIOPSY, Modifiers: 59 , 07418 UPPER GI ENDOSCOPY, BIOPSY * * The named appointment provid er may or may not be the originator of this progress note, and it is not deemed complete until electronically signed by the appointment provider. Sign off status: Pending * Provider:?Mark Kent MD Date:?0 12/22/2023 Generated for Joy liu/Curt/eTransmitting on:?03/22/2025 06:19 AM EDT
--- OUTSIDE RECORDS SUMMARY | 2025-03-22 06:19 | XMS_ITS ---
Author Organization [facility] Address [address] [place] [address] Care Team Providers Care Director Of Events Name Role Phone Jaime RODRIGUEZ, Stefan Primary Care Provider Mark Sanford Jr Unavailable Allergies Allergen (clinical drug ingredient) Drug/Non Drug Allergy documented on EMR Reaction Allergy Type Onset Date Status sulfamethoxazole / trimethoprim Bactrim Unknown Drug Allergy Active amoxicillin / clavulanate Augmentin Unknown Drug Allergy Active REASON FOR VISIT Patient presents today for ocasio's Medications Medication SIG (Take, Route, Frequency, Duration) [...] 1 tablet Orally Once a day Active Social History Tobacco Use: Social History Observation Description Date Details (start date - stop date) Former Smoker NA - NA Tobacco Use/Smoking Question Answer Notes Patient is [...] Never (0 point) Points 1 Interpretation Negative Problems Problem Type SNOMED Code ICD Code Onset Dates Problem Status W/U Status Risk Notes Problem 497002052 Ocasio's esophagus without dysplasia (K22.70) Active confirmed Problem 720200923 Colon cancer screening (Z12.11) Active confirmed Vital Signs Temperature 98.1 degrees Fahrenheit 04/03/20 24 Blood pressure systolic 000 mm Hg 04/03/20 24 Blood pressure diastolic 00 mm Hg 024 Height 62 in 04/03/2024 Weight 225 lb 2 oz lbs 04/03/2024 BMI 41.17 kg/m2 04/03/2024 Encounters Encounter Location Date Provider Diagnosis [facility] [address] [place] [address] 04/03/2024 Mark Kent Jr Ocasio's esophagus without dysplasia K22.70 and Colon cancer screening Z12.11 Assessments Encounter Date Diagnosis (ICD Code) Assessment Notes Treatment Notes Treatment Clinical Notes Section Notes 04/03/2024 Ocasio's esophagus without dysplasia (ICD-10 - K22.70) Ocasio esophagus material was printed We discussed Ocasio's esophagus today. We gave her present information regarding this. We discussed diet, lifestyle modifications, and weight management regarding treatment of reflux. She will continue omeprazole. Followup will be in one year. She is up-to-date on colorectal cancer screening. 04/03/2024 Colon cancer screening (ICD-10 - Z12.11) We discussed Ocasio's esophagus today. We gave her present information regarding this. We discussed diet, lifestyle modifications, and weight management regarding treatment of reflux. She will continue omeprazole. Followup will be in one year. She is up-to-date on colorectal cancer screening. Plan Of Treatment Treatment Notes Assessment Notes Ocasio's esophagus without dysplasia Ba rrett esophagus material was printed Next Appt Details Follow Up: 1 Year, Reason: Provider Name:Mark flower Jr, 04/04/2025 11:00:00 AM, [address], [address], [place], [address], Progress Notes * SARIAH PIPER: 6 (58 yo F)Acc No.[id number]:04/03/2024 Progress Notes Patient:DESIREE DURAND Provider:?Mark Kent MD :1965???Age:58 Y???Sex:Female D ate:04/03/2024 Address:[address] [place], [place] [id number] Pcp:Stefan Sandoval MD Subjective: * Chief Complaints: * ???1. Patient presents today for ocasio's. * HPI: ???New symptom(s):? Desiree is a pleasant 58-year-old woman seen today in followup of Ocasio's esophagus. Endoscopy in December showed changes of Ocasio's. She has no complaints of stomach problems. She has no heartburn. She continues on omeprazole. Weight and appetite have been stable. * Medical History:?Hypertensio n, Hyperlipidemia, Gastroesophageal reflux disease, EGD 01/08, no H. pylori, changes of Ocasio's, 2 year followup, Osteoarthritis, Thoracic outlet syndrome, Elevated body mass index, Colonoscopy 01/08, hyperplastic polyp, five-year followup. * Surgical History:?left hip r eplacement 2001, right hip replacement 2000, left knee replacement 2014, cholecystectomy , Rectal skin tag excision , ear surgery , knee surgery , knee replacement right 2021. * Family History:?Father: dece ased, diagnosed with HTN (hypertension), Colon polyps.?Mother: .? No family history of colon cancer or liver cancer. * Social History:?Tobacco Use:?Tobacco Use/Smoking?Patient is a?former smoker.?Drugs/Alcohol:?Alcohol Screen?Did you have a drink containing alcohol in the past year??Yes,?How often did you have a drink containing alcohol in the past year??Monthly or less (1 point), How many drinks did you have on a typical day when you were drinking in the past year??1 or 2 drinks (0 point),?How often did you have 6 or more drinks on one occasion in the past year??Never (0 point),?Points?1,?Interpretation?Negative.?Miscellaneous:?Marital status: . 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 * Medications:?Taking Iron 325 (65 Fe) MG Tablet 1 tablet Orally Three times a Week, Taking Cyclobenzaprine HCl 10 MG Tablet as directed Orally Once a day, Taking Lisinopril-hydroCHLOROthiazide 20-12.5 MG Tablet 1 tablet Orally Once a day, Taking Omeprazole 20 MG Capsule Delayed Release 1 capsule 30 minutes before morning meal Orally Once a day, Taking Simvastatin 80 MG Tablet TAKE 1 TABLET IN THE EVENING ONCE A DAY Orally Once a day, Taking MiraLax (colon prep) 17 GM/SCOOP Powder mixed with Gatorade or Crystal Light Orally begin at 5:00 p.m. the day before the procedure, Medication List reviewed and reconciled with the patient * Allergies:?Bactrim, Augmenti n. Objective: * Vitals:?Wt: 225 lb 2 oz, Ht: 62 in, BMI:41.17 Index, BP: 000/00 mm Hg, Temp: 98.1. * Examination: ???General Examination: ???On examination today, she appears well. Skin is anicteric. Lungs are clear. Heart shows regular rate and rhythm. Abdomen is soft without focal masses or tenderness. Extremities are without edema. Assessment: * Assessment: 1.?Ocasio's esophagus witho ut dysplasia - K22.70 (Primary)?2.?Colon cancer screening - Z12.11? We discussed Ocasio's esoph sanjeev today. We gave her present information regarding this. We discussed diet, lifestyle modifications, and weight management regarding treatment of reflux. She will continue omeprazole. Followup will be in one year. She is up-to-date on colorectal cancer screening. Plan: * Treatment: * Procedure Codes:?3017F COLOR ECTAL CA SCREEN DOC REV, G9903 Pt scrn tbco id as non user, G9744 PATIENT NOT ELIG D/T ACTIVE DX HTN * Preventive Medicine:? ??Counseling:?Care goal follow-up plan:?Above Normal BMI Follow-up?Giving encouragement to exercise,?BMI management provided?Yes.? * Follow Up:?1 Year * * Sign off status: Completed true * Provider:?Mark Kent MD Date:?0 04/03/2024 Generated for Joy liu/Curt/Clintsmitting on:?03/22/2025 06:19 AM EDT History and Physical Notes * HPI (History of Present Illness) Category Sub-Category Detail Notes Category Not es New symptom(s) Desiree is a pl easant 58-year-old woman seen today in followup of Ocasio's esophagus. Endoscopy in December showed changes of Ocasio's. She has no complaints of stomach problems. She has no heartburn. She continues on omeprazole. Weight and appetite have been stable. Examination Category Sub-Category Detail Notes Category Not es General Examination On exami nation today, she appears well. Skin is anicteric. Lungs are clear. Heart shows regular rate and rhythm. Abdomen is soft without focal masses or tenderness. Extremities are without edema.
--- OUTSIDE RECORDS SUMMARY | 2025-03-22 06:20 | XMS_ITS | Patient Health Record ---
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 Name Role Phone Stefan Sandoval Primary Care Provider [phone] Allergies Allergen (clinical drug ingredient) Drug/Non Drug Allergy documented on EMR Reaction Allergy Type Onset Date Status sulfamethoxazole / trimethoprim Bactrim rash Drug Allergy Active amoxicillin / clavulanate Augmentin Unknown Drug Allergy Active Results Component Value Reference Range Notes Complete Blood Count Auto Di ff Reviewed date:06/26/2024 05:15:49 AM Interpretation: Performing Lab:[facility], [address] [place] [phone] Notes/Report: White Blood Count 10.1 4.8-10.8 X10*3/uL [...] NRBC Abs Auto 0.000 0.0-0.012 X10*3/uL Comprehensive Boyd. Panel Fa Reviewed date:06/26/2024 05:15:49 AM Interpretation: Performing Lab:[facility], [address] [place] [phone] Notes/Report: Sodium 141 135-145 mmol/L Potassium 4.5 3.3-5.1 mmol/L Chloride 107 96-108 mmol/L Carbon Dioxide 24 22-29 mmol/L Anion Gap 15 12-20 Blood Urea Nitrogen 13 9-16 mg/dL Creatinine 0.74 0.5-1.4 mg/dL Estimated Glomerular Filt Rate > 60 NOTE: For -[place] individuals, multiply the result by 1.210. Chronic [...] Ferritin Reviewed date:06/26/2024 05:15:49 AM Interpretation: Performing Lab:[facility], [address] [place] [phone] Notes/Report: Ferritin 58 10-250 ng/mL Lipid Panel Reviewed date:06/26/2024 05:15:49 AM Interpretation: Performing Lab:[facility], [address] [place] [phone] Notes/Report: Triglycerides 332 <150 mg/dL Desirable Triglyceride: [...] Complete Blood Count Auto Di ff Reviewed date:11/01/2024 11:14:56 AM Interpretation: Performing Lab:[facility], [address] [place] [phone] Notes/Report: White Blood Count 10.2 4.8-10.8 X10*3/uL Red Blood Count 5.28 4.20-5.50 X10*6/uL Hemoglobin 14.9 12.0-16.0 g/dl Hematocrit 45.1 37.0-47.0 % Mean Corpuscular Volume 85.4 80.0-98.0 fL Mean Corpuscular Hemoglobin 28.2 27.0-33.0 pg Mean Corpuscular HGB Conc 33.0 31.0-35.0 g/dl Red Cell Distribution Width 14.7 11.0-16.0 % Platelet Count 374 160-400 X10*3/uL Mean Platelet Volume 10.7 9.4-12.3 fL Neutrophils Percent Auto 62.8 45-73 % Imm Gran Pct Auto 0.3 0.0-0.4 % Lymphocytes Percent Auto 26.5 20-40 % Monocytes Percent Auto 7.0 2-11 % Eosinophils Percent Auto 2.8 0-4 % Basophils Percent Auto 0.6 0-2 % NRBC Pct Auto 0.0 0.0-0.2 /100WBC Neutrophils Absolute Auto 6.4 2.0-8.3 x10*3/u L Imm Gran Abs Auto 0.03 0.00-0.03 X10*3/uL Lymphocytes Absolute Auto 2.7 1.2-4.9 X10*3/u L Monocytes Absolute Auto 0.7 0.1-1.2 X10*3/uL Eosinophils Absolute Auto 0.3 0.0-0.4 X10*3/u L Basophils Absolute Auto 0.1 0.0-0.2 X10*3/uL NRBC Abs Auto 0.000 0.0-0.012 X10*3/uL Comprehensive Boyd. Panel Fa Reviewed date:11/01/2024 11:14:56 AM Interpretation: Performing Lab:[address] [phone] Notes/Report: Sodium 141 135-145 mmol/L Potassium 3.4 3.3-5.1 mmol/L Chloride 107 96-108 mmol/L Carbon Dioxide 22 22-29 mmol/L Anion Gap 15 12-20 Blood Urea Nitrogen 14 9-16 mg/dL Creatinine 0.80 0.5-1.4 mg/dL Estimated Glomerular Filt Rate > 60 Chronic Kidney Disease: Estimated GFR < 60 mL/min/1.73m2 Severe Kidney Disease: Estimated GFR < 15 mL/min/1.73m2 Glucose Fasting 131 60-99 mg/dL A fasting glucose of 126 mg/dl or greater on more than one occasion is considered diagnostic of diabetes. Calcium 9.9 8.4-10.2 mg/dL Bilirubin Total 0.7 0.0-1.0 mg/dL Aspartate Amino Transferase 50 5-31 U/L Alanine Aminotransferase 24 0-31 U/L Total Protein 8.0 6.5-8.0 g/dL Albumin Level 4.5 3.5-5.0 g/dL Alkaline Phosphatase 77 39-117 U/L Lipid Panel Reviewed date:11/01/2024 11:14:56 AM Interpretation: Performing Lab:[facility], [address] [place] [phone] Notes/Report: Triglycerides 216 <150 mg/dL Desirable Triglyceride: less than 150 mg/dL Borderline High Triglyceride 150-199 mg/dL High Triglyceride: 200-499 mg/dL Very High Triglyceride: greater than or equal to 5OO mg/dL Cholesterol 165 <200 mg/dL Desirable Cholesterol: less than 200 mg/dL Borderline High Cholesterol: 200-239 mg/dL High Cholesterol: greater than 239 mg/dL LDL Cholesterol Calculated 87 <100 mg/dL Desirable LDL: less than 100 mg/dL Near Optimal/Above Optimal LDL: 110-129 mg/dL Borderline High LDL: 130-159 mg/dL High LDL: 160-189 mg/dL Very High LDL: greater than or equal to 190 mg/dL HDL Cholesterol 35 >40 mg/dL Desirable HDL: greater than 40 mg/dL Note: This HDL assay may give artificially low results in patients with liver disease. MM tomosynthesis screening B I Reviewed date:12/17/2024 09:03:59 AM Interpretation: Performing Lab: Notes/Report: [facility] [place] [address] Mammography Report Signed Patient: Desiree Gaxiola MR#: [id number] : 1965 Acct:[id number] Age/Sex: 59 / F ADM Date: 11/29/24 Loc: HO.MAMMO Attending Dr: Stefan Sandoval MD Ordering Physician: Stefan Sandoval MD Results: 1Negativ e Date of Service: 11/29/24 Follow Up: 1 Year From [facility] ina Mammogram Procedure(s): MM tomosynthesis screening BI Accession Number(s): [id number] cc: Stefan Sandoval MD EXAMINATION: MM SCREENING DIGITAL BREAST TOMOSYNTHESIS, BILATERAL CLINICAL INFORMATION: Screening. Asymptomatic. COMPARISON: Mammography: Comparison is made with available priors TECHNIQUE: Digital breast mammography with tomosynthesis is performed in both the craniocaudal and mediolateral oblique views along with computer-aided detection (CAD). FINDINGS: There are scattered areas of fibroglandular density (ACR BI-RADS breast composition Category b). There are no significant masses, abnormal calcifications, [...] target due date for their next mammogram. Electronically signed by: Jo Torrez DO 12/10/2024 10:04 AM EST RP Dictated By: Jo Torrez DO Signed By: <Electronically signed by Jo Torrez DO in OV> 12/10/24 1004 DD/ 1115 TD/TT: 11/29/24 1141 Monotype Machinist: [facility] [address] [place] [address] Mammography Report Signed Patient: Desiree Gaxiola MR#: [id number] : 1965 Acct:[id number] Age/Sex: 59 / F ADM Date: 11/29/24 Loc: HO.MAMMO Attending Dr: Stefan Sandoval MD Ordering Physician: Stefan Sandoval MD Results: 1Negativ e Date of Service: 11/29/24 Follow Up: 1 Year From Orig ina Mammogram Procedure(s): MM tomosynthesis screening BI Accession Number(s): [id number] cc: Stefan Sandoval MD EXAMINATION: MM SCREENING DIGITAL BREAST TOMOSYNTHESIS, BILATERAL CLINICAL INFORMATION: Screening. Asymptomatic. COMPARISON: Mammography: Comparison is made with available priors TECHNIQUE: Digital breast mammography with tomosynthesis is performed in both the craniocaudal and mediolateral oblique views along with computer-aided detection (CAD). FINDINGS: There are scattered areas of fibroglandular density (ACR BI-RADS breast composition Category b). There are no significant masses, abnormal calcifications, [...] target due date for their next mammogram. Electronically elizabeth d by: Jo Torrez DO 12/10/2024 10:04 AM EST RP Dictated By: Jo Torrez DO Signed By: <Electronically signed by Jo Torrez DO in OV> 12/10/24 1004 DD/ 1115 TD/TT: 11/29/24 1141 Monotype Machinist: Complete Blood Count Auto Di ff Reviewed date:01/28/2025 09:35:50 AM Interpretation: Performing Lab:[facility], [address] [place] [phone] Notes/Report: White Blood Count 13.4 4.8-10.8 X10*3/uL Red Blood Count 5.53 4.20-5.50 X10*6/uL Hemoglobin 15.5 12.0-16.0 g/dl Hematocrit 45.8 37.0-47.0 % Mean Corpuscular Volume 82.8 80.0-98.0 fL Mean Corpuscular Hemoglobin 28.0 27.0-33.0 pg Mean Corpuscular HGB Conc 33.8 31.0-35.0 g/dl Red Cell Distribution Width 15.1 11.0-16.0 % Platelet Count 429 160-400 X10*3/uL Mean Platelet Volume 10.2 9.4-12.3 fL Neutrophils Percent Auto 63.8 45-73 % Imm Gran Pct Auto 0.4 0.0-0.4 % Lymphocytes Percent Auto 24.3 20-40 % Monocytes Percent Auto 7.2 2-11 % Eosinophils Percent Auto 3.9 0-4 % Basophils Percent Auto 0.4 0-2 % NRBC Pct Auto 0.0 0.0-0.2 /100WBC Neutrophils Absolute Auto 8.5 2.0-8.3 x10*3/u L Imm Gran Abs Auto 0.06 0.00-0.03 X10*3/uL Lymphocytes Absolute Auto 3.3 1.2-4.9 X10*3/u L Monocytes Absolute Auto 1.0 0.1-1.2 X10*3/uL Eosinophils Absolute Auto 0.5 0.0-0.4 X10*3/u L Basophils Absolute Auto 0.1 0.0-0.2 X10*3/uL NRBC Abs Auto 0.000 0.0-0.012 X10*3/uL Comprehensive Boyd. Panel Fa st Reviewed date:01/28/2025 09:35:51 AM Interpretation: Performing Lab:[facility], [address] [place] [phone] Notes/Report: Sodium 141 135-145 mmol/L Potassium 4.1 3.3-5.1 mmol/L Chloride 107 96-108 mmol/L Carbon Dioxide 24 22-29 mmol/L Anion Gap 14 12-20 Blood Urea Nitrogen 9 9-16 mg/dL Creatinine 0.68 0.5-1.4 mg/dL Estimated Glomerular Filt Rate > 60 Chronic Kidney Disease: Estimated GFR < 60 mL/min/1.73m2 Severe Kidney Disease: Estimated GFR < 15 mL/min/1.73m2 Glucose Fasting 100 60-99 mg/dL A fasting glucose from 100-125 mg/dl is considered impaired (pre-diabetes). Calcium 10.3 8.4-10.2 mg/dL Bilirubin Total 0.8 0.0-1.0 mg/dL Aspartate Amino Transferase 50 5-31 U/L Alanine Aminotransferase 23 0-31 U/L Total Protein 7.9 6.5-8.0 g/dL Albumin Level 4.3 3.5-5.0 g/dL Alkaline Phosphatase 75 39-117 U/L Lipid Panel Reviewed date:01/28/2025 09:35:51 AM Interpretation: Performing Lab:[facility], [address] [place] [phone] Notes/Report: Triglycerides 167 <150 mg/dL Desirable Triglyceride: less than 150 mg/dL Borderline High Triglyceride 150-199 mg/dL High Triglyceride: 200-499 mg/dL Very High Triglyceride: greater than or equal to 5OO mg/dL Cholesterol 166 <200 mg/dL Desirable Cholesterol: less than 200 mg/dL Borderline High Cholesterol: 200-239 mg/dL High Cholesterol: greater than 239 mg/dL LDL Cholesterol Calculated 94 <100 mg/dL Desirable LDL: less than 100 mg/dL Near Optimal/Above Optimal LDL: 110-129 mg/dL Borderline High LDL: 130-159 mg/dL High LDL: 160-189 mg/dL Very High LDL: greater than or equal to 190 mg/dL HDL Cholesterol 39 >40 mg/dL Desirable HDL: greater than 40 mg/dL Note: This HDL assay may give artificially low results in patients with liver disease. Hemoglobin A1c Reviewed date:01/28/2025 09:35:50 AM Interpretation: Performing Lab:[facility], [address] [place] [address], [place] [address] Notes/Report: Hemoglobin A1c % 5.8 <6.0 % Hemoglobin A1C Reference Range Adults: 4.8 - 6.0 % Non diabetic: < 6.0 % Goal: < 7.0 % Additional Action Suggested: > 8.0 % Note: Hemoglobin A1c results are invalid for patients with abnormal amounts of HbF. Blood transfusions may impact the HbA1c concentration in the patient sample. Estimated Average Glucose 120 eAG = Estimated average glucose which is %A1C expressed as average glucose, using the formula of the [id number] Average Glucose study (ADAG), Diabetes Care, Vol.31,#8, Jun. 2007 Reason For Referral No Information Medications Medication SIG (Take, Route, Frequency, Duration) Notes Start Date End Date Status Ibuprofen 800 MG 1 tablet with food o r milk as needed Orally Three times a day 04/26/2018 Active Multi Vitamin - 1 tablet Orally Once a day Active Lisinopril-hydroCHLOROthiaz guerline 20-12.5 MG TAKE 1 TABLET BY MOUTH EVERY DAY Active Omeprazole 20 MG TAKE 1 CAPSULE BY MO UTH EVERY DAY Active Simvastatin 80 MG 1 tablet Orally Once a day for 30 days Active Immunizations Vaccine Route Administration Date Status Comme nts Influenza no Preserv 3 and > Unknown 09/10/2019 Administered Influenza, quad IM Intramuscular 09/14/2022 Administered Influenza, quad IM Intramuscular 10/27/2023 Administered Influenza Vaccine Afluria IM Intramuscular 11/01/2024 Admi nistered Social History Tobacco Use: Social History Observation Description Date Details (start date - stop date) Former Smoker NA - NA Sex Assigned At : Social History Observation Description Sex Assigned At Female Tobacco Control (Standard) Question Answer Notes Tobacco use: Former smoker How long has it been since you last smoked? 5-10 years Additional Findings: Tobacco non-user Ex-cigaret te smoker AUDIT-C (Standard) Question Answer Notes Did you have a drink contain ing alcohol in the past year? Yes How often did you have six o r more drinks on one occasion in the past year? 2 to 3 times per week (3 points) How many drinks did you have on a typical day when you were drinking in the past year? 1 or 2 drinks (0 point) How often did you have a dri nk containing alcohol in the past year? Never (0 point) Points 3 Interpretation Positive Problems Problem Type SNOMED Code ICD Code Onset Dates Problem Status W/U Status Risk Notes Problem 2092606 Former smoker (Z87.891) Active confirmed She seems highly motivated not to smoke. She has a plan to prevent relapse in times of stress and illness and weight loss. Problem Weight loss (264747843) Weight loss (R63.4) Active confirmed She has had a 14 pound involuntary weight loss associated with abnormal findings in the abdomen. This is now being investigated. Problem 704044997 Obesity (BMI 30-39.9) (E66.9) Active confirmed She remains obese but has had a 14 pound involuntary weight loss. The cause of this is being sought. I recommended 3 heealthy meals a day. Problem Essential hypertension (65548228) Essential hypertension (I10) Active confirmed Her blood pressure is stable today. I have recommended aggressive weight loss and sodium restriction. No change in medications was made. 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 She will have periodic bone density tests. Problem 237099962 Osteoarthritis of multiple joints, unspecified osteoarthritis type (M15.9) Active confirmed She will continue on current therapy at this time. Problem 95467479 Iron deficiency anemia, unspecified iron deficiency anemia type (D50.9) Active confirmed Her ferritin is in the normal range at the low end. Her iron therapy was continued. Problem 166187435823468 Primary osteoarthritis of right knee (M17.11) Active confirmed She is going to have the joint replaced next week. She cultured Staphylococcus aureus, out of her nose and will use bacitracin twice a day in each nostril until surgery. Her EKG and blood work is adequate for treatment. She has given medical clearance for the procedure. Problem 65757304 Hyperlipidemia, unspecified hyperlipidemia type (E78.5) Active confirmed Her fasting total cholesterol was 165. She is in her normal range. No change in her therapy was necessary today. Problem 667188762010148 Primary osteoarthritis of left hip (M16.12) Active confirmed She continues under the care of an orthopedist, Dr. Espinosa. Problem 766486652 Right lower quadrant abdominal pain (R10.31) Active confirmed There is a masslike effect in the right lower quadrant. A CT scan of the abdomen has been ordered along with comprehensive blood work. Problem 309701700 Diverticulitis (K57.92) Active confirmed This process and the pain have completely resolved Problem Calcaneal spur (62187598) Bone spur of inferior portion of calcaneus (M77.30) Active confirmed The pain in the foot has resolved and she is walking without difficultyy from foot pain. She continues to have knee and hip pain. Vital Signs Heart Rate 96 /min 03/06/2025 Temperature 97.1 degrees Fahrenheit 03/06/2025 Blood pressure diastolic 80 mm Hg 03/06/2025 Height 62.5 in 03/06/2025 Blood pressure systolic 130 mm Hg 03/06/2025 Weight 201 lbs 03/06/2025 BMI 36.17 kg/m2 03/06/2025 Encounters Encounter Location Date Provider Diagnosis Stefan Sandoval III, MD [address] [place] [address] [place] [phone] 03/27/2024 Stefan Sandoval Obesity (BMI 30-39.9 ) E66.9 ; Hyperlipidemia, unspecified hyperlipidemia type E78.5 ; Osteoarthritis of multiple joints, unspecified osteoarthritis type M15.9 ; Former smoker Z87.891 ; Primary osteoarthritis of right knee M17.11 and Essential hypertension I10 Stefan Sandoval III, MD [address] [place] [address] [place] [phone] 06/27/2024 Stefan Sandoval Obesity (BMI 30-39.9 ) E66.9 ; Essential hypertension I10 ; Osteoarthritis of multiple joints, unspecified osteoarthritis type M15.9 ; Former smoker Z87.891 ; Primary osteoarthritis of right knee M17.11 and Hyperlipidemia, unspecified hyperlipidemia type E78.5 Stefan Sandoval III, MD [address] [place] [address] [place] [phone] 11/01/2024 Stefan Sandoval Obesity (BMI 30-39.9 ) E66.9 ; Encounter for immunization Z23 ; Hyperlipidemia, unspecified hyperlipidemia type E78.5 ; Prediabetes R73.09 ; Essential hypertension I10 ; GERD (gastroesophageal reflux disease) K21.9 ; Former smoker Z87.891 and Primary osteoarthritis of right knee M17.11 Stefan Sandoval III, MD [address] [place] [address] [place] [phone] 03/06/2025 Stefan Sandoval Obesity (BMI 30-39.9 ) E66.9 ; Right lower quadrant abdominal pain R10.31 ; Weight loss R63.4 ; Asymptomatic postmenopausal status Z78.0 ; Osteoarthritis of multiple joints, unspecified osteoarthritis type M15.9 ; Bone spur of inferior portion of calcaneus M77.30 ; Former smoker Z87.891 and Iron deficiency anemia, unspecified iron deficiency anemia type D50.9 Stefan Sandoval III, MD [address] [place] [address] [place] [phone] 02/20/2025 Stefan Sandoval III, MD [address] [place] [address] [address] [phone] 03/09/2025 Stefan Sandoval Right lower quadrant abdominal pain R10.31 ; Weight loss R63.4 and Abdominal pain R10.9 Assessments Encounter Date Diagnosis (ICD Code) Assessment [...] restriction. No change in medications was made. 11/01/2024 Encounter for immunization (ICD-10 - Z23) She received the flu vaccine today. 11/01/2024 Obesity (BMI 30-39.9) (ICD-10 - E66.9) She has lost 7pounds and her body mass index is 38.7. We discussed diet and nutrition. We made a plan to lose weight at a rate of one half of a pound per week through a diet restricted in calories and sodium combined with regular physical activity. 03/06/2025 Obesity (BMI 30-39.9) (ICD-10 - E66.9) She remains obese but has had a 14 pound involuntary weight loss. The cause of this is being sought. I recommended 3 heealthy meals a day. 03/06/2025 Right lower quadrant abdominal pain (ICD-10 - R10.31) There is a masslike effect in the right lower quadrant. A CT scan of the abdomen has been ordered along with comprehensive blood work. 03/09/2025 Right lower quadrant abdominal pain (ICD-10 - R10.31) 03/27/2024 Osteoarthritis of multiple joints, unspecified osteoarthritis type (ICD-10 - M15.9) She will continue on current therapy at this time. 06/27/2024 Osteoarthritis of multiple joints, unspecified osteoarthritis type (ICD-10 - M15.9) She will continue on current therapy at this time. 11/01/2024 Hyperlipidemia, unspecified hyperlipidemia type (ICD-10 - E78.5) Her fasting total cholesterol was 165. She is in her normal range. No change in her therapy was necessary today. 03/06/2025 Weight loss (ICD-10 - R63.4) She has had a 14 pound involuntary weight loss associated with abnormal findings in the abdomen. This is now being investigated. 03/09/2025 Weight loss (ICD-10 - R63.4) 03/27/2024 Former smoker (ICD-10 - Z87.891) She seems highly motivated not to smoke. She has a plan to prevent relapse in times of stress and illness and weight loss. 06/27/2024 Former smoker (ICD-10 - Z87.891) She seems highly motivated not to smoke. She has a plan to prevent relapse in times of stress and illness and weight loss. 11/01/2024 Prediabetes (ICD-10 - R73.09) Her fasting glucose was 131 despite losing 7 pounds. I have discussed the concept of prediabetes with her. I have ordered a hemoglobin A1c prior to her next visit. I strongly recommended aggressive weight loss and regular physical activity. 03/06/2025 Asymptomatic postmenopausal status (ICD-10 - Z78.0) I have encouraged her to continue her relationship with a service order dispatcher on an annual basis. She will have periodic bone density tests. 03/09/2025 Abdominal pain (ICD-10 - R10.9) 03/27/2024 Primary osteoarthritis of right knee (ICD-10 [...] has given medical clearance for the procedure. 11/01/2024 Essential hypertension (ICD-10 - I10) Her blood pressure is stable today. I have recommended aggressive weight loss and sodium restriction. No change in medications was made. 03/06/2025 Osteoarthritis of multiple joints, unspecified osteoarthritis type (ICD-10 - M15.9) She will continue on current therapy at this time. 03/27/2024 Essential hypertension (ICD-10 - I10) Her blood pressure has been currently stable and no change in her regimen was needed today. I have recommended aggressive weight loss and sodium restriction. 06/27/2024 Hyperlipidemia, unspecified hyperlipidemia type (ICD-10 - E78.5) Her total cholesterol is 257 which is higher than usual. We discussed cholesterol reduction dietts at length. 11/01/2024 GERD (gastroesophageal reflux disease) (ICD-10 - K21.9) Her reflexes well controlled with [id number] medications. She will continue these for the moment. 03/06/2025 Bone spur of inferior portion of calcaneus (ICD-10 - M77.30) The pain in the foot has resolved and she is walking without difficultyy from foot pain. She continues to have knee and hip pain. 11/01/2024 Former smoker (ICD-10 - Z87.891) She seems highly motivated not to smoke. She has a plan to prevent relapse in times of stress and illness and weight loss. 03/06/2025 Former smoker (ICD-10 - Z87.891) She seems highly motivated not to smoke. She has a plan to prevent relapse in times of stress and illness and weight loss. 11/01/2024 Primary osteoarthritis of right knee (ICD-10 - M17.11) She is going to have the joint replaced next week. She cultured Staphylococcus aureus, out of her nose and will use bacitracin twice a day in each nostril until surgery. Her EKG and blood work is adequate for treatment. She has given medical clearance for the procedure. 03/06/2025 Iron deficiency anemia, unspecified iron deficiency anemia type (ICD-10 - D50.9) Her ferritin is in the normal range at the low end. Her iron therapy was continued. Plan Of Treatment Pending Test Test Name Order Date PROFILE, FASTING (COMPREHENSIVE METABOLI C) 10/27/2023 PROFILE, FASTING (COMPREHENSIVE METABOLI C) 06/27/2024 PROFILE, RANDOM (COMPREHENSIVE METABOLIC ) 03/06/2025 LIPID PANEL 06/27/2024 CBC w DIFF 06/27/2024 CBC w DIFF 03/06/2025 CT ABD WITH CONTRAST 03/06/2025 CT ABD & PELVIS WITH CONTRAST 03/09/2025 CBC WITH AUTO DIFF 10/27/2023 Ferritin 10/27/2023 Lipid Panel 10/27/2023 Next Appt Details Provider Name:Stefan Sandoval, 11/05/2025 11:00:00 AM, [address] [place] [address] , [place] [address], [place], [address], Insurance Providers Payer Name Payer Address Payer Phone Subscriber Number Group Number Insured Name Patient Relationship to Insured Coverage Start Date Coverage End Date [employer] [facility] [address] [place] [address] [phone] [id number] Desiree Gaxiola Self - patient is the insured [place] [address] [place], [place] [id number] [phone] [id number] Desiree Gaxiola Self - patient is the [...]
--- OUTSIDE RECORDS SUMMARY | 2025-03-22 06:20 | XMS_ITS | Patient Health Record ---
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 Phone Jaime RODRIGUEZ, Stefan Primary Care Provider Mark Sanford Jr Unavailable Allergies Allergen (clinical drug ingredient) Drug/Non Drug Allergy documented on EMR Reaction Allergy Type Onset Date Status sulfamethoxazole / trimethoprim Bactrim Unknown Drug Allergy Active amoxicillin / clavulanate Augmentin Unknown Drug Allergy Active Reason For Referral No Information Medications Medication [...] 1 tablet Orally Once a day Active Immunizations Vaccine Route Administration Date Status Comme nts Influenza Unknown 09/13/2019 Administered Influenza Unknown 11/15/2023 Administered Influenza Unknown 09/07/2023 Administered Social History Tobacco Use: Social History [...] Problem Status W/U Status Risk Notes Problem 086153370 Colon cancer screening (Z12.11) Active confirmed Problem 352750858 Abreu's esophagus without dysplasia (K22.70) Active confirmed Problem 0659063 Diverticulitis large intestine w/o perforation or abscess w/bleeding (K57.33) Active confirmed Problem 737851345 RLQ abdominal pa in (R10.31) Active confirmed Problem 253193380 Gastroesophageal reflux disease, unspecified whether esophagitis present (K21.9) Active confirmed Problem Gastroesophageal reflux disease (312163642) Chronic GERD (K21.9) Active confirmed Problem 539158848 Microcytosis (R71.8) Active confirmed Vital Signs Temperature 98.1 degrees Fahrenheit 04/03/2024 Blood pressure diastolic 00 mm Hg 04/03/2024 Height 62 in 04/03/2024 Blood pressure systolic 000 mm Hg 04/03/2024 Weight 225 lb 2 oz lbs 04/03/2024 BMI 41.17 kg/m2 04/03/2024 Encounters Encounter Location Date Provider Diagnosis [facility] [address] [facility] [address] [place] [id number] 04/03/2024 Mark Kent Jr Abreu's esophagus without dysplasia K22.70 and Colon cancer screening Z12.11 Assessments Encounter Date Diagnosis (ICD Code) Assessment Notes Treatment Notes Treatment Clinical Notes Section Notes 04/03/2024 Colon cancer screening (ICD-10 - Z12.11) We discussed Abreu's esophagus today. We gave her present information regarding this. We discussed diet, lifestyle modifications, and weight management regarding treatment of reflux. She will continue omeprazole. Followup will be in one year. She is up-to-date on colorectal cancer screening. 04/03/2024 Abreu's esophagus without dysplasia (ICD-10 - K22.70) Abreu esophagus material was printed We discussed Abreu's esophagus today. We gave her present information regarding this. We discussed diet, lifestyle modifications, and weight management regarding treatment of reflux. She will continue omeprazole. Followup will be in one year. She is up-to-date on colorectal cancer screening. Plan Of Treatment Future Test Test Name Order Date COLONOSCOPY 12/13/2019 UPPER GI ENDOSCOPY 12/01/2023 COLONOSCOPY 12/01/2023 Next Appt Details Provider Name:Mark Cantrell Harman flower , 04/04/2025 11:00:00 AM, [address] [facility], [address], [place], [address], Insurance Providers Payer Name Payer Address Payer Phone Subscriber Number Group Number Insured Name Patient Relationship to Insured Coverage Start Date Coverage End Date [facility] [place] [facility] [address] [place] [address] [phone] [id number] PIPER Self - patient is the insured Medical (General) History Medical History History ICD Code Hypertension Hyperlipidemia [...]
--- OUTSIDE RECORDS SUMMARY | 2025-03-22 06:20 | XMS_ITS ---
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 Role Phone Stefan Sandoval Primary Care Provider REASON FOR VISIT New Order Social History Sex Assigned At : Social History Observation Description Sex Assigned At Female Encounters Encounter Location Date Provider Diagnosis Stefan Sandoval III, MD [address] [place] [address] [place] [phone] 03/09/2025 Stefan Sandoval Right lower quadrant abdominal pain R10.31 ; Weight loss R63.4 and Abdominal pain R10.9 Assessments Encounter Date Diagnosis (ICD Code) Assessment Notes Treatment Notes Treatment Clinical Notes 03/09/2025 Right lower quadrant abdominal pain (ICD-10 - R10.31) 03/09/2025 Weight loss (ICD-10 - R63.4) 03/09/2025 Abdominal pain (ICD-10 - R10.9) Plan Of Treatment Pending Test Test Name Order Date CT ABD & PELVIS WITH CONTRAST 03/09/2025 Next Appt Details Provider Name:Stefan Sandoval, 11/05/2025 11:00:00 AM, [address] [place] [address] [address] [place], [phone], Progress Notes * KHALIDA TywillamDOB: 6 (59 yo F)Acc No.[id number]:03/09/2025 Patient:?Desiree GAXIOLA :1965???Age:59 Y???Sex:Female Address:[address] [place] [address], [place], [id number] Subjective: * Chief Complaints: * ???New Order * Medical History:? * Surgical History:? * Hospitalization/Major Diagno stic Procedure:? * Medications:? Objective: * Vitals:? * Physical Examination:? Assessment: * Assessment: 1.?Right lower quadrant abdo wayne pain - R10.31???2.?Weight loss - R63.4???3.?Abdominal pain - R10.9??? Plan: * Treatment: 2.?Weight loss?Imaging: CT ABD & PELVIS WITH CONTRAST 3.?Abdominal pain?Imaging: CT ABD & PELVIS WITH CONTRAST * Procedure Codes:? * true * Date:? Generated for Joy liu/Curt/Willyitting on:?03/22/2025 06:20 AM EDT
--- OUTSIDE RECORDS SUMMARY | 2025-03-22 06:20 | XMS_ITS ---
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 Name Role Phone Stefan Sandoval Primary Care Provider Allergies Allergen (clinical drug ingredient) Drug/Non Drug Allergy documented on EMR Reaction Allergy Type Onset Date Status sulfamethoxazole / trimethoprim Bactrim rash Drug Allergy Active amoxicillin / clavulanate Augmentin Unknown Drug Allergy Active REASON FOR VISIT Abdominal pain, right lower quadrant, Weight loss, Anorexia Medications Medication SIG (Take, Route, Frequency, Duration) Notes Start Date End Date Status Simvastatin 80 MG TAKE 1 TABLET BY ROHITH TH EVERY DAY IN THE EVENING Active Ibuprofen 800 MG 1 tablet with food o r milk as needed Orally Three times a day 04/26/2018 Active Multi Vitamin - 1 tablet Orally Once a day Active Lisinopril-hydroCHLOROthiaz guerline 20-12.5 MG TAKE 1 TABLET BY MOUTH EVERY DAY Active Omeprazole 20 MG TAKE 1 CAPSULE BY MO UTH EVERY DAY Active Social History Tobacco Use: Social History Observation Description Date Details (start date - stop date) Former Smoker NA - NA Sex Assigned At : Social History Observation Description Sex Assigned At Female Tobacco Control (Standard) Question Answer Notes Tobacco use: Former smoker How long has it been since you last smoked? 5-10 years Additional Findings: Tobacco non-user Ex-cigaret te smoker Problems Problem Type SNOMED Code ICD Code Onset Dates Problem Status W/U Status Risk Notes Problem [id number] Right lower quadrant abdominal pain (R10.31) Active confirmed There is a masslike effect in the right lower quadrant. A CT scan of the abdomen has been ordered along with comprehensive blood work. Problem Weight loss (581288792) Weight loss (R63.4) Active confirmed She has had a 1 4 pound involuntary weight loss associated with abnormal findings in the abdomen. This is now being investigated. Vital Signs Temperature 97.1 degrees Fahrenheit 03/06/20 25 Blood pressure systolic 130 mm Hg 03/06/20 25 Blood pressure diastolic 80 mm Hg 025 Heart Rate 96 /min 03/06/2025 Height 62.5 in 03/06/2025 Weight 201 lbs 03/06/2025 BMI 36.17 kg/m2 03/06/2025 Encounters Encounter Location Date Provider Diagnosis Stefan Sandoval III, MD [address] [place] [address] [place] [address] 03/06/2025 Stefan Sandoval Obesity (BMI 30-39.9 ) E66.9 ; Right lower quadrant abdominal pain R10.31 ; Weight loss R63.4 ; Asymptomatic postmenopausal status Z78.0 ; Osteoarthritis of multiple joints, unspecified osteoarthritis type M15.9 ; Bone spur of inferior portion of calcaneus M77.30 ; Former smoker Z87.891 and Iron deficiency anemia, unspecified iron deficiency anemia type D50.9 Assessments Encounter Date Diagnosis (ICD Code) Assessment Notes Treat ment Notes Treatment Clinical Notes 03/06/2025 Obesity (BMI 30-39.9 ) (ICD-10 - E66.9) She remains obese but has had a 14 pound involuntary weight loss. The cause of this is being sought. I recommended 3 heealthy meals a day. 03/06/2025 Right lower quadrant abdominal pain (ICD-10 - R10.31) There is a masslike effect in the right lower quadrant. A CT scan of the abdomen has been ordered along with comprehensive blood work. 03/06/2025 Weight loss (ICD-10 - R63.4) She has had a 14 pound involuntary weight loss associated with abnormal findings in the abdomen. This is now being investigated. 03/06/2025 Asymptomatic postmenopausal status (ICD-10 - Z78.0) I have encouraged her to continue her relationship with a fourdrinier machine tender on an annual basis. She will have periodic bone density tests. 03/06/2025 Osteoarthritis of multiple joints, unspecified osteoarthritis type (ICD-10 - M15.9) She will continue on current therapy at this time. 03/06/2025 Bone spur of inferio r portion of calcaneus (ICD-10 - M77.30) The pain in the foot has resolved and she is walking without difficultyy from foot pain. She continues to have knee and hip pain. 03/06/2025 Former smoker (ICD-1 0 - Z87.891) She seems highly motivated not to smoke. She has a plan to prevent relapse in times of stress and illness and weight loss. 03/06/2025 Iron deficiency anemia, unspecified iron deficiency anemia type (ICD-10 - D50.9) Her ferritin is in the normal range at the low end. Her iron therapy was continued. Plan Of Treatment Medication Medication Name Sig Start Date Stop Date Notes Simvastatin 80 MG TAKE 1 TABLET BY ROHITH TH EVERY DAY IN THE EVENING Ibuprofen 800 MG 1 tablet with food o r milk as needed Orally Three times a day 04/26/2018 Multi Vitamin - 1 tablet Orally Once a day Lisinopril-hydroCHLOROthiazi de 20-12.5 MG TAKE 1 TABLET BY MOUTH EVERY DAY Omeprazole 20 MG TAKE 1 CAPSULE BY MO UTH EVERY DAY Pending Test Test Name Order Date PROFILE, RANDOM (COMPREHENSIVE METABOLIC ) 03/06/2025 CBC w DIFF 03/06/2025 CT ABD WITH CONTRAST 03/06/2025 Next Appt Details Follow Up: 1 Week, Reason: o v Provider Name:Stefan Sandoval, 11/05/2025 11:00:00 AM, [address] [place] [address], [address], Progress Notes * Desiree GAXIOLADOB: 6 (59 yo F)Acc No.[id number]:03/06/2025 Progress Notes Patient:?Desiree GAXIOLA Provider:?Stefan Sandoval MD :1965???Age:59 Y???Sex:Female D ate:03/06/2025 Address:[address] [place] [address] [id number] Subjective: * Chief Complaints: * ???Abdominal pain, right low er quadrantWeight lossAnorexia * HPI: ???COVID-19 Screening:?She was last seen in October of 2024.? Since that time she has had a 14 pound weight loss.? She says she has no appetite.? She reports being constipated despite taking Metamucil.? This has been for the last month.? ?She has had occasional diarrhea.? Her back pain has been preseny.? She is experiencing a new pain in the right lower quadrant of the abdomen.? It is described as crampy.? She has never had an appendectomy.? She had some vomiting last week.On her physical examination there was a mass effect in the right lower quadrant and right mid abdomen, which was tender to palpation.? Comprehensive blood work was ordered to be done today.? We are trying to obtain an urgent CT scan of the abdomen to elucidate the mass. She is aware of all these findings.? Most recent blood work is a months old. ?Questions?Have you had any new onset fever, chills, cough, congestion, sore throat, shortness of breath, muscle aches??No * ROS:?General/Constitutional:?pain?One month right lower quadrant abdominal discomfort.?Chills?denies.?Fatigue?admits.?Fever?denies.?ENT:?Decreased hearing?denies.?Respiratory:?Cough?denies.?Cardiovascular:?Chest pain with exertion?denies.?Dyspnea on exertion?denies.?Shortness of breath?denies.?Gastrointestinal:?Constipation?alternating with diarrhea.?Decreased appetite?that is associated with weight loss.?Diarrhea?that is infrequent.?Heartburn?denies.?Nausea?frequent.?Rectal bleeding?denies.?Vomiting?tolerating liquids, but not solids.?Hematology:?bruising?denies.?petechiae?denies.?Swollen glands?none have been noted.?Genitourinary:?Frequent urination?denies.?Musculoskeletal:?Muscle aches?denies.?Painful joints?denies.?Sciatica?denies.?Weakness?denies.?Skin:?Itching?denies.?Rash?denies.?Skin lesion(s)?denies.?Neurologic:?Difficulty speaking?denies.?Dizziness?denies.?Headache?denies.?Low back pain?that is chronic.?Psychiatric:?Depressed mood?denies.? * Medical History:? * Surgical History:?Left knee dislocation 1976Left ear myringotomy 1978Arthroscopic right knee surgery 2000cholecystectomy 2001Right hip replacement 2002Left hip replacement 2003Perforated ear patch 2005Hemorrhoid removed 2008Left knee replacement, [facility] 2014two colonoscopies, Dr. Cloud right knee replacement 02/03/22 * Hospitalization/Major Diagno stic Procedure:? * Family History:?Father: dece ased 83 yrs, of heart attack, thyroid disease, polyps, diagnosed with HTN.?Mother: 73 yrs, of heart attack, diagnosed with HTN.?Son(s): alive.?Siblings: alive.?2 sister(s) . 1 son(s) - healthy. .? Her sister has thyroid disease. Her son Edgardo is healthy and well. There is no family history of ovarian breast or uterine cancer. She is not aware of any family history of mental illness or substance use disorder, or addictions. * Social History:?Tobacco Use:?Tobacco Control (Standard)?Tobacco use:?Former smoker ?How long has it been since you last smoked??5-10 years ?Additional Findings: Tobacco non-user?Ex-cigarette smoker ???She is and has one son, Edgardo, who is alive and well. She has been to [place] for many years. She continues to smoke a package of cigarettes per day. * Medications:?TakingLisinopri l-hydroCHLOROthiazide 20-12.5 MG Tablet TAKE 1 TABLET BY MOUTH EVERY DAY Omeprazole 20 MG Capsule Delayed Release TAKE 1 CAPSULE BY MOUTH EVERY DAY Simvastatin 80 MG Tablet TAKE 1 TABLET BY MOUTH EVERY DAY IN THE EVENING Ibuprofen 800 MG Tablet 1 tablet with food or milk as needed Orally Three times a day Multi Vitamin - Tablet 1 tablet Orally Once a day Taking Lisinopril-hydroCHLOROthiazide 20-12.5 MG Tablet TAKE 1 TABLET BY MOUTH EVERY DAY Taking Omeprazole 20 MG Capsule Delayed Release TAKE 1 CAPSULE BY MOUTH EVERY DAY Taking Simvastatin 80 MG Tablet TAKE 1 TABLET BY MOUTH EVERY DAY IN THE EVENING Taking Ibuprofen 800 MG Tablet 1 tablet with food or milk as needed Orally Three times a day Taking Multi Vitamin - Tablet 1 tablet Orally Once a day DiscontinuedCyclobenzaprine HCl 10 MG Tablet 1 tablet at bedtime as needed Orally three times a day Ferrous Sulfate 325 (65 Fe) MG Tablet 1 tablet Orally once a day Medication List reviewed and reconciled with the patientDiscontinued Cyclobenzaprine HCl 10 MG Tablet 1 tablet at bedtime as needed Orally three times a day Discontinued Ferrous Sulfate 325 (65 Fe) MG Tablet 1 tablet Orally once a day Medication List reviewed and reconciled with the patient * Allergies:?Augmentin: Allerg yBactrim: rash - Allergyno[Allergies Verified] Objective: * Vitals:?Ht: 62.5, Wt: 201, B NH:36.17, BP: 130/80, HR: 96, Temp: 97.1, Wt-k.17. * ???Past Orders: Lab:Complete Blood Count Aut o Diff * Collection Date 01/27/2025 10/28/2024 06/23/2024 Collection Time 01:17 PM 11:10 AM 10:05 AM Order Date 01/27/2025 10/28/2024 06/23/2024 White Blood Count 13.4?H (Ref Range: 4.8-10.8 X10*3/uL) 10.2 (Ref Range: 4.8-10.8 X10*3/uL) 10.1 (Ref Range: 4.8-10.8 X10*3/uL) Red Blood Count 5.53?H (Ref Range: 4.20-5.50 X10*6/uL) 5.28 (Ref Range: 4.20-5.50 X10*6/uL) 5.13 (Ref Range: 4.20-5.50 X10*6/uL) Hemoglobin 15.5 (Ref Range: 12.0-16.0 g/dl) 14.9 (Ref Range: 12.0-16.0 g/dl) 14.6 (Ref Range: 12.0-16.0 g/dl) Hematocrit 45.8 (Ref Range: 37.0-47.0 %) 45.1 (Ref Range: 37.0-47.0 %) 45.2 (Ref Range: 37.0-47.0 %) Mean Corpuscular Volume 82.8 (Ref Range: 80.0-98.0 fL) 85.4 (Ref Range: 80.0-98.0 fL) 88.1 (Ref Range: 80.0-98.0 fL) Mean Corpuscular Hemoglobin 28.0 (Ref Range: 27.0-33.0 pg) 28.2 (Ref Range: 27.0-33.0 pg) 28.5 (Ref Range: 27.0-33.0 pg) Mean Corpuscular HGB Conc 33.8 (Ref Range: 31.0-35.0 g/dl) 33.0 (Ref Range: 31.0-35.0 g/dl) 32.3 (Ref Range: 31.0-35.0 g/dl) Red Cell Distribution Width 15.1 (Ref Range: 11.0-16.0 %) 14.7 (Ref Range: 11.0-16.0 %) 14.7 (Ref Range: 11.0-16.0 %) Platelet Count 429?H (Ref Range: 160-400 X10*3/uL) 374 (Ref Range: 160-400 X10*3/uL) 417?H (Ref Range: 160-400 X10*3/uL) Mean Platelet Volume 10.2 (Ref Range: 9.4-12.3 fL) 10.7 (Ref Range: 9.4-12.3 fL) 10.4 (Ref Range: 9.4-12.3 fL) Neutrophils Percent Auto 63.8 (Ref Range: 45-73 %) 62.8 (Ref Range: 45-73 %) 51.8 (Ref Range: 45-73 %) Imm Gran Pct Auto 0.4 (Ref Range: 0.0-0.4 %) 0.3 (Ref Range: 0.0-0.4 %) 1.3?H (Ref Range: 0.0-0.4 %) Lymphocytes Percent Auto 24.3 (Ref Range: 20-40 %) 26.5 (Ref Range: 20-40 %) 34.9 (Ref Range: 20-40 %) Monocytes Percent Auto 7.2 (Ref Range: 2-11 %) 7.0 (Ref Range: 2-11 %) 6.4 (Ref Range: 2-11 %) Eosinophils Percent Auto 3.9 (Ref Range: 0-4 %) 2.8 (Ref Range: 0-4 %) 5.0?H (Ref Range: 0-4 %) Basophils Percent Auto 0.4 (Ref Range: 0-2 %) 0.6 (Ref Range: 0-2 %) 0.6 (Ref Range: 0-2 %) NRBC Pct Auto 0.0 (Ref Range: 0.0-0.2 /100WBC) 0.0 (Ref Range: 0.0-0.2 /100WBC) 0.0 (Ref Range: 0.0-0.2 /100WBC) Neutrophils Absolute Auto 8.5?H (Ref Range: 2.0-8.3 x10*3/uL) 6.4 (Ref Range: 2.0-8.3 x10*3/uL) 5.2 (Ref Range: 2.0-8.3 x10*3/uL) Imm Gran Abs Auto 0.06?H (Ref Range: 0.00-0.03 X10*3/uL) 0.03 (Ref Range: 0.00-0.03 X10*3/uL) 0.13?H (Ref Range: 0.00-0.03 X10*3/uL) Lymphocytes Absolute Auto 3.3 (Ref Range: 1.2-4.9 X10*3/uL) 2.7 (Ref Range: 1.2-4.9 X10*3/uL) 3.5 (Ref Range: 1.2-4.9 X10*3/uL) Monocytes Absolute Auto 1.0 (Ref Range: 0.1-1.2 X10*3/uL) 0.7 (Ref Range: 0.1-1.2 X10*3/uL) 0.6 (Ref Range: 0.1-1.2 X10*3/uL) Eosinophils Absolute Auto 0.5?H (Ref Range: 0.0-0.4 X10*3/uL) 0.3 (Ref Range: 0.0-0.4 X10*3/uL) 0.5?H (Ref Range: 0.0-0.4 X10*3/uL) Basophils Absolute Auto 0.1 (Ref Range: 0.0-0.2 X10*3/uL) 0.1 (Ref Range: 0.0-0.2 X10*3/uL) 0.1 (Ref Range: 0.0-0.2 X10*3/uL) NRBC Abs Auto 0.000 (Ref Range: 0.0-0.012 X10*3/uL) 0.000 (Ref Range: 0.0-0.012 X10*3/uL) 0.000 (Ref Range: 0.0-0.012 X10*3/uL) * Lab:[facility]aimie Velázquez. Jory l Fast * Collection Date 01/27/2025 10/28/2024 06/23/2024 Collection Time 01:17 PM 11:10 AM 10:05 AM Order Date 01/27/2025 10/28/2024 06/23/2024 Sodium 141 (Ref Range: 135-145 mmol/L) 141 (Ref Range: 135-145 mmol/L) 141 (Ref Range: 135-145 mmol/L) Bilirubin Total 0.8 (Ref Range: 0.0-1.0 mg/dL) 0.7 (Ref Range: 0.0-1.0 mg/dL) 0.4 (Ref Range: 0.0-1.0 mg/dL) Aspartate Amino Transferase 50?H (Ref Range: 5-31 U/L) 50?H (Ref Range: 5-31 U/L) 29 (Ref Range: 5-31 U/L) Alanine Aminotransferase 23 (Ref Range: 0-31 U/L) 24 (Ref Range: 0-31 U/L) 25 (Ref Range: 0-31 U/L) Total Protein 7.9 (Ref Range: 6.5-8.0 g/dL) 8.0 (Ref Range: 6.5-8.0 g/dL) 7.2 (Ref Range: 6.5-8.0 g/dL) Albumin Level 4.3 (Ref Range: 3.5-5.0 g/dL) 4.5 (Ref Range: 3.5-5.0 g/dL) 4.1 (Ref Range: 3.5-5.0 g/dL) Alkaline Phosphatase 75 (Ref Range: 39-117 U/L) 77 (Ref Range: 39-117 U/L) 66 (Ref Range: 39-117 U/L) Potassium 4.1 (Ref Range: 3.3-5.1 mmol/L) 3.4 (Ref Range: 3.3-5.1 mmol/L) 4.5 (Ref Range: 3.3-5.1 mmol/L) Chloride 107 (Ref Range: 96-108 mmol/L) 107 (Ref Range: 96-108 mmol/L) 107 (Ref Range: 96-108 mmol/L) Carbon Dioxide 24 (Ref Range: 22-29 mmol/L) 22 (Ref Range: 22-29 mmol/L) 24 (Ref Range: 22-29 mmol/L) Anion Gap 14 (Ref Range: 12-20) 15 (Ref Range: 12-20) 15 (Ref Range: 12-20) Blood Urea Nitrogen 9 (Ref Range: 9-16 mg/dL) 14 (Ref Range: 9-16 mg/dL) 13 (Ref Range: 9-16 mg/dL) Creatinine 0.68 (Ref Range: 0.5-1.4 mg/dL) 0.80 (Ref Range: 0.5-1.4 mg/dL) 0.74 (Ref Range: 0.5-1.4 mg/dL) Estimated Glomerular Filt Rate > 60 > 60 > 60 Glucose Fasting 100?H (Ref Range: 60-99 mg/dL) 131?H (Ref Range: 60-99 mg/dL) 120?H (Ref Range: 60-99 mg/dL) Calcium 10.3?H (Ref Range: 8.4-10.2 mg/dL) 9.9 (Ref Range: 8.4-10.2 mg/dL) 10.2 (Ref Range: 8.4-10.2 mg/dL) * Lab:Lipid Panel * Collection Date 01/27/2025 10/28/2024 06/23/2024 Collection Time 01:17 PM 11:10 AM 10:05 AM Order Date 01/27/2025 10/28/2024 06/23/2024 Triglycerides 167?H (Ref Range: <150 mg/dL) 216?H (Ref Range: <150 mg/dL) 332?H (Ref Range: <150 mg/dL) Cholesterol 166 (Ref Range: <200 mg/dL) 165 (Ref Range: <200 mg/dL) 249?H (Ref Range: <200 mg/dL) LDL Cholesterol Calculated 94 (Ref Range: <100 mg/dL) 87 (Ref Range: <100 mg/dL) 148?H (Ref Range: <100 mg/dL) HDL Cholesterol 39?L (Ref Range: >40 mg/dL) 35?L (Ref Range: >40 mg/dL) 35?L (Ref Range: >40 mg/dL) ???Lab:Hemoglobin A1c (Order Date - 01/27/2025) (Collection Date & Time - 01/27/2025 01:17 PM)?ValueReference Range?Hemoglobin A1c %5.8<6.0 - %?Estimated Average [id number]- mg/dL * Examination: ???General Examination: ?GENERAL APPEARANCE:?pleasant, well nourished, well developed, in no acute distress, calm and relaxed, obese, woman.?HEAD:?atraumatic, normocephalic.?EYES:?eomi, perrla, anicteric, conjugate.?EARS:?normal.?NOSE:?septum intact.?ORAL CAVITY:?normal, unremarkable.?NECK/THYROID:?no jugular venous distention, no carotid bruit, thyroid normal.?LYMPH NODES:?no enlarged lymph nodes,spleen normal.?SKIN:?no suspicious lesions, anicteric.?HEART:?no clicks, gallops, murmurs, or rubs, regular rhythm, S1, S2 normal, no s3, or vascular bruits.?LUNGS:?clear to auscultation .?BREASTS:?Not examined.?ABDOMEN:?bowel sounds normal, no ascites, no organomegaly, no mass, centripital obesity, Palpable mass right mid abdomen and right lower quadrant of the abdomen which is tender, no evidence for constipation left lower quadrant.?RECTAL EXAM:?not examined.?MUSCULOSKELETAL:?extremities unremarkable, no clubbing, cyanosis or edema, Bilateral hip painn to range of motion, decreased range of motion lumbar spine.?PERIPHERAL PULSES:?normal.?NEUROLOGIC:?alert and oriented, cranial nerves 2-12 grossly intact, deep tendon reflexes 2+ symmetrical, motor strength normal upper and lower extremities, sensory exam intact.?PSYCH:?alert, oriented.? Assessment: * Assessment: 1.?Right lower quadrant abdo wayne pain - R10.31 (Primary)???Notes :There is a masslike effect in the right lower quadrant.? A CT scan of the abdomen has been ordered along with comprehensive blood work.???2.?Obesity (BMI 30-39.9) - E66.9???Notes :She remains obese but has had a 14 pound involuntary weight loss.? The cause of this is being sought.? I recommended 3 heealthy meals a day.???3.?Weight loss - R63.4???Notes :She has had a 14 pound involuntary weight loss associated with abnormal findings in the abdomen.? This is now being investigated.???4.?Asymptomatic postmenopausal status - Z78.0???Notes :I have encouraged her to continue her relationship with a fourdrinier machine tender on an annual basis. She will have periodic bone density tests.???5.?Osteoarthritis of multiple joints, unspecified osteoarthritis type - M15.9???Notes :She will continue on current therapy at this time.???6.?Bone spur of inferior portion of calcaneus - M77.30???Notes :The pain in the foot has resolved and she is walking without difficultyy from foot pain. She continues to have knee and hip pain.???7.?Former smoker - Z87.891???Notes :She seems highly motivated not to smoke. She has a plan to prevent relapse in times of stress and illness and weight loss.???8.?Iron deficiency anemia, unspecified iron deficiency anemia type - D50.9???Notes :Her ferritin is in the normal range at the low end. Her iron therapy was continued.??? Plan: * Treatment: 2.?Obesity (BMI 30-39.9)? Continue Ibuprofen Tablet, 800 MG, 1 tablet with food or milk as needed, Orally, Three times a day;?Continue Multi Vitamin Tablet, -, 1 tablet, Orally, Once a day.?LAB: PROFILE, RANDOM (COMPREHENSIVE METABOLIC) ?LAB: CBC w DIFF 3.?Weight loss?LAB: PROFILE, RANDOM (COMPREHENSIVE METABOLIC) ?LAB: CBC w DIFF ?Imaging: CT ABD WITH CONTRAST 4.?Others? Continue Lisinopril-hydroCHLOROthiazide Tablet, 20-12.5 MG, TAKE 1 TABLET BY MOUTH EVERY DAY;?Continue Omeprazole Capsule Delayed Release, 20 MG, TAKE 1 CAPSULE BY MOUTH EVERY DAY;?Continue Simvastatin Tablet, 80 MG, TAKE 1 TABLET BY MOUTH EVERY DAY IN THE EVENING.?? * Procedure Codes:? * Preventive Medicine:? ??Counseling:?Care goal follow-up plan:?Counseling for abnormal BMI given?Yes ?Above Normal BMI Follow-up?Dietary management education, guidance, and counseling, Dietary needs education ?Smoking/Tobacco Use?Patient counseled on the dangers of tobacco use and urged to quit.?03/05/2025 * Follow Up:?1 Week (Reason: o v) * Images: * Sign off status: Completed true * Provider:?Stefan Sandoval MD Date:?02/14 Generated for Mildredi ng/Curt/eTransmitting on:?03/22/2025 06:20 AM EDT History and Physical Notes * HPI (History of Present Illness) Category Sub-Category Detail Notes COVID-19 Screening Questions Have you had any new onset fever, chills, cough, congestion, sore throat, shortness of breath, muscle aches?: No Examination Category Sub-Category Detail Notes General Examination GENERAL APPEARANCE: pleasant , well nourished, well developed, in no acute distress, calm and relaxed, obese, woman HEAD: atraumatic, normocep halic EYES: eomi, perrla, anicte abbey, conjugate EARS: normal NOSE: septum intact NECK/THYROID: no jugular venous di stention, no carotid bruit, thyroid normal HEART: no clicks, gallops, murmurs, or rubs, regular rhythm, S1, S2 normal, no s3, or vascular bruits LUNGS: clear to auscultatio n ABDOMEN: bowel sounds normal, no ascites, no organomegaly, no mass, centripital obesity, Palpable mass right mid abdomen and right lower quadrant of the abdomen which is tender, no evidence for constipation left lower quadrant NEUROLOGIC: alert and oriented, cranial nerves 2-12 grossly intact, deep tendon reflexes 2+ symmetrical, motor strength normal upper and lower extremities, sensory exam intact SKIN: no suspicious lesion s, anicteric PERIPHERAL PULSES: normal BREASTS: Not examined MUSCULOSKELETAL: extremities unremark able, no clubbing, cyanosis or edema, Bilateral hip painn to range of motion, decreased range of motion lumbar spine LYMPH NODES: no enlarged lymph no ursula,spleen normal RECTAL EXAM: not examined PSYCH: alert, oriented ORAL CAVITY: normal, unremarkable
--- OUTSIDE RECORDS SUMMARY | 2025-03-22 06:20 | XMS_ITS ---
Author Organization [facility] Address [address] [place] [address] Care Team Providers Care Frozen Food Selector Name Role Phone Jaime RODRIGUEZ, Stefan Primary Care Provider Unavailab eulalia Kent Jr, Mark Saores [phone] REASON FOR VISIT pathology Encounters Encounter Location Date Provider Diagnosis [facility] [address] [place] [address] 12/29/2023 Mark Kent Jr Plan Of Treatment Next Appt Details Provider Name:Mark flower Jr, 04/04/2025 11:00:00 AM, [address], [address], [place], [address], Progress Notes * GABE PIPERDOB: 6 (58 yo F)Acc No.[id number]:12/29/2023 Patient:?VERONIQUE, GABE :1965???Age:58 Y???Sex:Female Address:[address] [place] [address] , [place], [address] * true * Date:? Generated for Mildredi alexa/Curt/eTransmitting on:?03/22/2025 06:20 AM EDT
--- OUTSIDE RECORDS SUMMARY | 2025-03-22 06:20 | XMS_ITS ---
Author Organization Stefan Sandoval III, MD Address [address] [place] [place] [address] Care Team Providers Care Cornice Upholsterer Name Role Phone Stefan Sandoval Primary Care Provider Social History Sex Assigned At : Social History Observation Description Sex Assigned At Female Encounters Encounter Location Date Provider Diagnosis Stefan Sandoval III, MD [address] [place] [address] [address] [place] [address] 02/20/2025 Stefan Sandoval Plan Of Treatment Next Appt Details Provider Name:Stefan Sandoval, 11/05/2025 11:00:00 AM, [address], [place], [address], Progress Notes * Desiree GAXIOLADOB: 6 (59 yo F)Acc No.[id number]:02/20/2025 Patient:?Desiree GAXIOLA :1965???Age:59 Y???Sex:Female Address:[address] [place] [address], [address] * true * Date:? Generated for Printi ng/Fadarwing/eTransmitting on:?03/22/2025 06:20 AM EDT
[2025-03-22 10:28] LABS: MANUAL DIFF FLAG NO
[2025-03-22 10:45] LABS: Basophils Absolute Auto 0.1 X10*3/uL (0.0-0.2); Basophils Percent Auto 0.7 % (0-2); Eosinophils Absolute Auto 0.5 X10*3/uL (0.0-0.4); Eosinophils Percent Auto 4.8 % (0-4); Hematocrit 43.7 % (37.0-47.0); Hemoglobin 14.5 g/dl (12.0-16.0); Imm Gran Abs Auto 0.04 X10*3/uL (0.00-0.03); Imm Gran Pct Auto 0.4 % (0.0-0.4); Lymphocytes Absolute Auto 3.6 X10*3/uL (1.2-4.9); Lymphocytes Percent Auto 37.4 % (20-40); Mean Corpuscular HGB Conc 33.2 g/dl (31.0-35.0); Mean Corpuscular Hemoglobin 27.9 pg (27.0-33.0); Mean Platelet Volume 10.8 fL (9.4-12.3); Monocytes Absolute Auto 0.8 X10*3/uL (0.1-1.2); Monocytes Percent Auto 8.4 % (2-11); Neutrophils Absolute Auto 4.7 x10*3/uL (2.0-8.3); Neutrophils Percent Auto 48.3 % (45-73); Platelet Count 406 X10*3/uL (160-400); Red Cell Distribution Width 15.3 % (11.0-16.0); White Blood Count 9.7 X10*3/uL (4.8-10.8)
[2025-03-22 11:00] LABS: Alanine Aminotransferase 17 U/L (0-31); Albumin Level 4.1 g/dL (3.5-5.0); Alkaline Phosphatase 75 U/L (39-117); Anion Gap 13 (12-20); Aspartate Amino Transferase 39 U/L (5-31); Bilirubin Total 0.3 mg/dL (0.0-1.0); Blood Urea Nitrogen 9 mg/dL (9-16); Calcium 9.9 mg/dL (8.4-10.2); Carbon Dioxide 25 mmol/L (22-29); Chloride 107 mmol/L (96-108); Estimated Glomerular Filt Rate > 60; Glucose Random 88 mg/dL (60-115); Potassium 3.6 mmol/L (3.3-5.1); Sodium 141 mmol/L (135-145); Total Protein 7.3 g/dL (6.5-8.0)
== END 2025-03-22 06:17 | disposition home or self-care (01) ==
LOC: HO.HMGCLDS 06:16
PROVIDERS: PCP Internal Medicine Medical Oncology; Visit Provider Internal Medicine Medical Oncology
DX: E66.9 Obesity, unspecified (principal); R63.4 Abnormal weight loss
CPT/HCPCS: 36415; 80053; 85025

== ENCOUNTER 2025-03-26 09:29 | Outpatient (REF) | payer OTHER, SELFPAY ==
--- NOTE | ~2025-03-26 | CT_ITS ---
EXAMINATION: CT ABDOMEN AND PELVIS WITH CONTRAST CLINICAL INFORMATION: Weight loss COMPARISON: August 09, 2023. TECHNIQUE: Multidetector volumetric images were obtained from the superior aspect of the liver through the pubic symphysis following administration 85 mL of Omnipaque 350 intravenous contrast. Sagittal and coronal reformatted images were obtained on the technologist's workstation. Oral contrast: No This CT examination was performed using dose optimization techniques as appropriate, variously including the following: *Automated exposure control *Adjustment of mA and/or kV according to patient size (this includes techniques or standardized protocols for targeted exams where dose is matched to indication/reason for exam; i.e. extremities or head) *Use of iterative reconstruction technique DLP: 950 mGy centimeter. FINDINGS: LUNG BASES: No acute airspace disease. LIVER, GALLBLADDER, AND BILIARY TREE: Liver measures 15 cm. No focal mass. Main portal veins, hepatic veins and intrahepatic portion of the IVC are patent. No intrahepatic biliary ductal dilatation. [Status post cholecystectomy likely laparoscopic. No extrahepatic biliary ductal dilatation. PANCREAS: No focal mass. No main pancreatic ductal dilatation. No peripancreatic fluid collection. SPLEEN: 8 cm. No focal mass. ADRENAL GLANDS: Soft tissue fullness without nodular lesions. KIDNEYS AND URETERS: No hydronephrosis. No gross nephrolithiasis. No gross renal mass. BLADDER: Fluid-filled. GASTROINTESTINAL TRACT: Appendix is normal. No intestinal obstruction pattern. No pneumatosis intestinalis. No pneumoperitoneum. Few scattered diverticula, left hemicolon. No gross wall thickening. No ascites. No pneumoperitoneum. ABDOMINAL WALL: Small fat-containing umbilical hernia. LYMPH NODES: Not enlarged. VASCULAR: Mixed plaques throughout the abdominal aorta wall and iliac arteries without aneurysm or dissection. Calcified plaques in the coronary arteries and mixed plaques in the descending thoracic aorta. PELVIC VISCERA: Prominent right adnexa for patient's age. OSSEOUS STRUCTURES: Again hardening artifact secondary to bilateral hip prosthesis. Sclerosis and vacuum phenomenon in the sacroiliac joints. 6 mm blastic lesion right symphysis pubis with degenerative changes in the symphysis pubis and ischium. Multilevel thoracolumbar spondylosis resulting in grade 1 retrolisthesis L4-5, central spinal canal and bilateral neuroforamina stenosis from L2-3 to L5-S1 levels. CT/CT abdomen pelvis w IV con IMPRESSION: Nonspecific prominent right adnexa for patient age. No gross lymphadenopathy, mesenteric or retroperitoneal. Multilevel thoracolumbar spondylosis. Small fat-containing umbilical hernia. Atherosclerosis disease. Fleischner guidelines were followed. Electronically signed by: Shno Gomez MD 03/26/2025 02:46 PM EDT RP
--- OUTSIDE RECORDS SUMMARY | 2025-03-26 09:43 | XMS_ITS ---
Author Organization [facility] Address [address] [place] [address] Care Team Providers Care Auto Vinyl Top Installer Name Role Phone Jaime RODRIGUEZ, Stefan Primary Care Provider Kwesi Mckeon Jr, Mark Soares REASON FOR VISIT GERD,RLQ PAIN Problems Problem Type SNOMED Code ICD Code Onset Dates Problem Status W/U Status Risk Notes Problem Gastroesophageal reflux disease (918658003) Chronic GERD (K21.9) Active confirmed Encounters Encounter Location Date Provider Diagnosis [facility] Outpatient [address] [place] [phone] 12/22/2023 Mark Kent Jr Colon polyps K63.5 [...] Name:Mark flower Jr, 04/04/2025 11:00:00 AM, [address], [address], [place], [address], Progress Notes * SARIAH PIPER: 6 (59 yo F)Acc No.[id number]:12/22/2023 EGD and COL/MAC Patient:GABE DURAND Provider:?Mark Kent MD :1965???Age:58 Y???Sex:Female D ate:12/22/2023 Address:[address] [place], [place] [id number] Pcp:Stefan Sandoval MD Subjective: * Chief Complaints: * ???1. GERD,RLQ PAIN. * Medical History:? Objective: * Vitals:? Assessment: * Assessment: 1.?Colon polyps - K63.5 (Bettye pete)???2.?Chronic GERD - K21.9???3.?Abdominal pain, RLQ - R10.31???4.?Other abnormality of red blood cells - R71.8??? Plan: * Treatment: * Procedure Codes:?70501 LESIO N REMOVAL COLONOSCOPY, 37261 COLONOSCOPY AND BIOPSY, Modifiers: 59 , 69075 UPPER GI ENDOSCOPY, BIOPSY * * The named appointment provid er may or may not be the originator of this progress note, and it is not deemed complete until electronically signed by the appointment provider. Sign off status: Pending * Provider:?Mark Kent MD Date:?0 12/22/2023 Generated for Joy liu/Curt/eTransmitting on:?03/26/2025 09:43 AM EDT
--- OUTSIDE RECORDS SUMMARY | 2025-03-26 09:44 | XMS_ITS ---
Author Organization Stefan Sandoval III, MD Address [address] [address] Care Team Providers Care Shipfitter Helper Name Role Phone Stefan Sandoval Primary Care Provider Social History Sex Assigned At : Social History Observation Description Sex Assigned At Female Encounters Encounter Location Date Provider Diagnosis Stefan Sandoval III, MD [address] [place] [address] [address] [place] [address] 02/20/2025 Stefan Sandoval Plan Of Treatment Next Appt Details Provider Name:Stefan Sandoval, 11/05/2025 11:00:00 AM, [address], [place], [address], Progress Notes * Desiree GAXIOLADOB: 6 (59 yo F)Acc No.[id number]:02/20/2025 Patient:?Desiree GAXIOLA :1965???Age:59 Y???Sex:Female Address:[address] [place] [address], [address] * true * Date:? Generated for Printi ng/Fadarwing/eTransmitting on:?03/26/2025 09:44 AM EDT
--- OUTSIDE RECORDS SUMMARY | 2025-03-26 09:44 | XMS_ITS | Patient Health Record ---
Author Organization [facility] Address [address] [place] [address] Care Team Providers Care Fire Information Officer Name Role Phone Jaime RODRIGUEZ, Stefan Primary Care Provider Mark Sanford Jr Unavailable [phone] Allergies Allergen (clinical drug ingredient) Drug/Non Drug [...] Problem Status W/U Status Risk Notes Problem 230630359 Colon cancer screening (Z12.11) Active confirmed Problem 354419990 Abreu's esophagus without dysplasia (K22.70) Active confirmed Problem 0134223 Diverticulitis large intestine w/o perforation or abscess w/bleeding (K57.33) Active confirmed Problem 602706529 RLQ abdominal pa in (R10.31) Active confirmed Problem 958497350 Gastroesophageal reflux disease, unspecified whether esophagitis present (K21.9) Active confirmed Problem Gastroesophageal reflux disease (148610727) Chronic GERD (K21.9) Active confirmed Problem 016249579 Microcytosis (R71.8) Active confirmed Vital Signs Temperature 98.1 degrees Fahrenheit 04/03/2024 Blood pressure diastolic 00 mm Hg 04/03/2024 Height 62 in 04/03/2024 Blood pressure systolic 000 mm Hg 04/03/2024 Weight 225 lb 2 oz lbs 04/03/2024 BMI 41.17 kg/m2 04/03/2024 Encounters Encounter Location Date Provider Diagnosis [facility] [address] [place] [address] 04/03/2024 Mark Kent Jr Abreu's esophagus without [...] Harman flower , 04/04/2025 11:00:00 AM, [address], [address], [place], [address], Insurance Providers Payer Name Payer Address Payer Phone Subscriber Number Group Number Insured Name Patient Relationship to Insured Coverage Start Date Coverage End Date [facility] [address] [place] [phone] [id number] GABE PIPER Self - patient is the [...]
--- OUTSIDE RECORDS SUMMARY | 2025-03-26 09:44 | XMS_ITS ---
Author Organization Stefan Sandoval III, MD Address [address] [place] [address] [place] [address] Care Team Providers Care Welder Pipe Making Name Role Phone Stefan Sandoval Primary Care [...] Problem Status W/U Status Risk Notes Problem 058310979 Right lower quadrant abdominal pain (R10.31) Active confirmed There is a masslike effect in the right lower quadrant. A CT scan of the abdomen has been ordered along with comprehensive blood work. Problem Weight loss (400283470) Weight loss (R63.4) Active confirmed She has [...] Date Provider Diagnosis Stefan Sandoval III, MD [address] [place] [address] [place] [address] 03/06/2025 Stefan Sandoval Obesity (BMI 30-39.9 ) [...] her to continue her relationship with a supervisor safety deposit on an annual basis. She will have [...] v Provider Name:Stefan Sandoval, 11/05/2025 11:00:00 AM, [address] [place] [address], [address], Progress Notes * Desiree GAXIOLADOB: 6 (59 yo F)Acc No.[id number]:03/06/2025 Progress Notes Patient:?Desiree GAXIOLA Provider:?tSefan Sandoval MD :1965???Age:59 Y???Sex:Female D ate:03/06/2025 Address:[address] [place] [address] [phone] Subjective: * Chief Complaints: * ???Abdominal pain, [...] Objective: * Vitals:?Ht: 62.5, Wt: 201, B FL:36.17, BP: 130/80, HR: 96, Temp: 97.1, Wt-k.17. [...] PM)?ValueReference Range?Hemoglobin A1c %5.8<6.0 - %?Estimated Average Ypgfqka134- mg/dL * Examination: ???General Examination: ?GENERAL APPEARANCE:?pleasant, [...] her to continue her relationship with a supervisor safety deposit on an annual basis. She will have [...] Sandoval MD Date:?02/14 Generated for Mildredi ng/Curt/eTransmitting on:?03/26/2025 09:44 AM EDT History and Physical Notes * [...]
--- OUTSIDE RECORDS SUMMARY | 2025-03-26 09:44 | XMS_ITS ---
Author Organization [facility] Address [address] [place] [address] Care Team Providers Care Health Services Rn Name Role Phone Jaime RODRIGUEZ, Stefan Primary [...] Problem Status W/U Status Risk Notes Problem 665145683 Ocasio's esophagus without dysplasia (K22.70) Active confirmed Problem 749600822 Colon cancer screening (Z12.11) Active confirmed Vital Signs Temperature 98.1 degrees Fahrenheit 04/03/20 24 Blood pressure systolic 000 mm Hg 04/03/20 24 Blood pressure diastolic 00 mm Hg 024 Height 62 in 04/03/2024 Weight 225 lb 2 oz lbs 04/03/2024 BMI 41.17 kg/m2 04/03/2024 Encounters Encounter Location Date Provider Diagnosis [facility] [address] [place] [address] 04/03/2024 Mark Kent Jr Ocasio's esophagus without [...] Name:Mark flower Jr, 04/04/2025 11:00:00 AM, [address], [address], [place], [address], Progress Notes * SARIAH PIPER: 6 (58 yo F)Acc No.[id number]:04/03/2024 Progress Notes Patient:DESIREE DURAND Provider:?Mark Kent MD :1965???Age:58 Y???Sex:Female D ate:04/03/2024 Address:[address] [place], [place] [id number] Pcp:Stefan Sandoval MD Subjective: * Chief Complaints: [...] past year??Never (0 point),?Points?1,?Interpretation?Negative.?Miscellaneous:?Marital status: . 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 * Medications:?Taking Iron 325 (65 Fe) MG [...] MD Date:?0 04/03/2024 Generated for Joy liu/Curt/Clintsmitting on:?03/26/2025 09:43 AM EDT History and Physical Notes * [...]
--- OUTSIDE RECORDS SUMMARY | 2025-03-26 09:44 | XMS_ITS | Patient Health Record ---
Author Organization Stefan Sandoval III, MD Address [address] [place] [address] [place] [address] Care Team Providers Care Baker Chef Name Role Phone Stefan Sandoval Primary Care Provider Allergies Allergen (clinical drug ingredient) Drug/Non Drug Allergy documented on EMR Reaction Allergy Type Onset Date Status sulfamethoxazole / trimethoprim Bactrim rash Drug Allergy Active amoxicillin / clavulanate Augmentin Unknown Drug Allergy Active Results Component Value Reference Range Notes Complete Blood Count Auto Di ff Reviewed date:06/26/2024 05:15:49 AM Interpretation: Performing Lab:[facility], [address] [place] [address] Notes/Report: White Blood Count 10.1 4.8-10.8 X10*3/uL [...] NRBC Abs Auto 0.000 0.0-0.012 X10*3/uL Comprehensive [place]. Panel Fa Reviewed date:06/26/2024 05:15:49 AM Interpretation: Performing Lab:[facility], [address] [place] [address] Notes/Report: Sodium 141 135-145 mmol/L Potassium 4.5 3.3-5.1 mmol/L Chloride 107 96-108 mmol/L Carbon Dioxide 24 22-29 mmol/L Anion Gap 15 12-20 Blood Urea Nitrogen 13 9-16 mg/dL Creatinine 0.74 0.5-1.4 mg/dL Estimated Glomerular Filt Rate > 60 NOTE: For -Uzbek individuals, multiply the result by 1.210. Chronic [...] Ferritin Reviewed date:06/26/2024 05:15:49 AM Interpretation: Performing Lab:[facility], [address] [place] [address] Notes/Report: Ferritin 58 10-250 ng/mL Lipid Panel Reviewed date:06/26/2024 05:15:49 AM Interpretation: Performing Lab:[facility], [address] [place] [address] Notes/Report: Triglycerides 332 <150 mg/dL Desirable Triglyceride: [...] ff Reviewed date:11/01/2024 11:14:56 AM Interpretation: Performing Lab:[facility], [address] [place] [address] Notes/Report: White Blood Count 10.2 4.8-10.8 X10*3/uL [...] NRBC Abs Auto 0.000 0.0-0.012 X10*3/uL Comprehensive [place]. Panel Fa Reviewed date:11/01/2024 11:14:56 AM Interpretation: Performing Lab:[address] [address] Notes/Report: Sodium 141 135-145 mmol/L Potassium 3.4 [...] Panel Reviewed date:11/01/2024 11:14:56 AM Interpretation: Performing Lab:[facility], [address] [place] [address] Notes/Report: Triglycerides 216 <150 mg/dL Desirable Triglyceride: [...] date:12/17/2024 09:03:59 AM Interpretation: Performing Lab: Notes/Report: [place] [place] [address] Mammography Report Signed Patient: Desiree Gaxiola MR#: [id number] : 1965 Acct:[id number] Age/Sex: 59 / F ADM Date: 11/29/24 Loc: HO.MAMMO Attending Dr: Stefan Sandoval MD Ordering Physician: Stefan Sandoval MD Results: 1Negativ e Date of Service: 11/29/24 Follow Up: 1 Year From [facility] ina Mammogram Procedure(s): MM tomosynthesis screening BI Accession Number(s): [id number] cc: Stefan Sandoval MD EXAMINATION: MM SCREENING [...] 12/10/24 1004 DD/ 1115 TD/TT: 11/29/24 1141 Jigger Machine Operator: [facility] [address] [place] [address] Mammography Report Signed Patient: Desiree Gaxiola MR#: [id number] : 1965 Acct:[id number] Age/Sex: 59 / F ADM Date: 11/29/24 Loc: HO.MAMMO Attending Dr: Stefan Sandoval MD Ordering Physician: Stefan Sandoval MD Results: 1Negativ e Date of Service: 11/29/24 Follow Up: 1 Year From Orig ina Mammogram Procedure(s): MM tomosynthesis screening BI Accession Number(s): [id number] cc: Stefan Sandoval MD EXAMINATION: MM SCREENING [...] 12/10/24 1004 DD/ 1115 TD/TT: 11/29/24 1141 Jigger Machine Operator: Complete Blood Count Auto Di ff Reviewed date:01/28/2025 09:35:50 AM Interpretation: Performing Lab:[facility], [address] [place] [address] Notes/Report: White Blood Count 13.4 4.8-10.8 X10*3/uL [...] NRBC Abs Auto 0.000 0.0-0.012 X10*3/uL Comprehensive [place]. Panel Fa st Reviewed date:01/28/2025 09:35:51 AM Interpretation: Performing Lab:[facility], [address] [place] [address] Notes/Report: Sodium 141 135-145 mmol/L Potassium 4.1 [...] Panel Reviewed date:01/28/2025 09:35:51 AM Interpretation: Performing Lab:[facility], [address] [place] [address] Notes/Report: Triglycerides 167 <150 mg/dL Desirable Triglyceride: [...] A1c Reviewed date:01/28/2025 09:35:50 AM Interpretation: Performing Lab:[facility], [address] [place] [address] Notes/Report: Hemoglobin A1c % 5.8 <6.0 % [...] average glucose, using the formula of the [id number]-[id number] Average Glucose study (ADAG), Diabetes Care, Vol.31,#8, 2007 Complete Blood Count Auto Di ff (Not yet reviewed by provider) Interpretation: Performing Lab:[facility], [address] [place] [address] Notes/Report: White Blood Count 9.7 4.8-10.8 X10*3/uL Red Blood Count 5.20 4.20-5.50 X10*6/uL Hemoglobin 14.5 12.0-16.0 g/dl Hematocrit 43.7 37.0-47.0 % Mean Corpuscular Volume 84.0 80.0-98.0 fL Mean Corpuscular Hemoglobin 27.9 27.0-33.0 pg Mean Corpuscular HGB Conc 33.2 31.0-35.0 g/dl Red Cell Distribution Width 15.3 11.0-16.0 % Platelet Count 406 160-400 X10*3/uL Mean Platelet Volume 10.8 9.4-12.3 fL Neutrophils Percent Auto 48.3 45-73 % Imm Gran Pct Auto 0.4 0.0-0.4 % Lymphocytes Percent Auto 37.4 20-40 % Monocytes Percent Auto 8.4 2-11 % Eosinophils Percent Auto 4.8 0-4 % Basophils Percent Auto 0.7 0-2 % NRBC Pct Auto 0.0 0.0-0.2 /100WBC Neutrophils Absolute Auto 4.7 2.0-8.3 x10*3/u L Imm Gran Abs Auto 0.04 0.00-0.03 X10*3/uL Lymphocytes Absolute Auto 3.6 1.2-4.9 X10*3/u L Monocytes Absolute Auto 0.8 0.1-1.2 X10*3/uL Eosinophils Absolute Auto 0.5 0.0-0.4 X10*3/u L Basophils Absolute Auto 0.1 0.0-0.2 X10*3/uL NRBC Abs Auto 0.000 0.0-0.012 X10*3/uL Comprehensive Met. Panel (No t yet reviewed by provider) Interpretation: Performing Lab:[facility], [address] [place] [address] Notes/Report: Sodium 141 135-145 mmol/L Potassium 3.6 3.3-5.1 mmol/L Chloride 107 96-108 mmol/L Carbon Dioxide 25 22-29 mmol/L Anion Gap 13 12-20 Blood Urea Nitrogen 9 9-16 mg/dL Creatinine 0.66 0.5-1.4 mg/dL Estimated Glomerular Filt Rate > 60 Chronic Kidney Disease: Estimated GFR < 60 mL/min/1.73m2 Severe Kidney Disease: Estimated GFR < 15 mL/min/1.73m2 Glucose Random 88 60-115 mg/dL Calcium 9.9 8.4-10.2 mg/dL Bilirubin Total 0.3 0.0-1.0 mg/dL Aspartate Amino Transferase 39 5-31 U/L Alanine Aminotransferase 17 0-31 U/L Total Protein 7.3 6.5-8.0 g/dL Albumin Level 4.1 3.5-5.0 g/dL Alkaline Phosphatase 75 39-117 U/L Reason For Referral No Information Medications Medication [...] Omeprazole 20 MG TAKE 1 CAPSULE BY OH UT EVERY DAY Active Simvastatin 80 MG 1 [...] Problem Status W/U Status Risk Notes Problem 9306605 Former smoker (Z87.891) Active confirmed She seems highly motivated not to smoke. She has a plan to prevent relapse in times of stress and illness and weight loss. Problem Weight loss (166630603) Weight loss (R63.4) Active confirmed She has had a 14 pound involuntary weight loss associated with abnormal findings in the abdomen. This is now being investigated. Problem 085025056 Obesity (BMI 30-39.9) (E66.9) Active confirmed She remains obese but has had a 14 pound involuntary weight loss. The cause of this is being sought. I recommended 3 heealthy meals a day. Problem Essential hypertension (73458381) Essential hypertension (I10) Active confirmed Her blood pressure is stable today. I have recommended aggressive weight loss and sodium restriction. No change in medications was made. Problem 55185914 Asymptomatic postmenopausal status (Z78.0) Active confirmed I have encouraged her to continue her relationship with a turntable man on an annual basis. She will have periodic bone density tests. Problem 396878585 Osteoarthritis of multiple joints, unspecified osteoarthritis type (M15.9) Active confirmed She will continue on current therapy at this time. Problem 14295948 Iron deficiency anemia, unspecified iron deficiency anemia type (D50.9) Active confirmed Her ferritin is in the normal range at the low end. Her iron therapy was continued. Problem 919571343402697 Primary osteoarthritis of right knee (M17.11) Active confirmed She is going to have the joint replaced next week. She cultured Staphylococcus aureus, out of her nose and will use bacitracin twice a day in each nostril until surgery. Her EKG and blood work is adequate for treatment. She has given medical clearance for the procedure. Problem 61018344 Hyperlipidemia, unspecified hyperlipidemia type (E78.5) Active confirmed Her fasting total cholesterol was 165. She is in her normal range. No change in her therapy was necessary today. Problem 057406890946673 Primary osteoarthritis of left hip (M16.12) Active confirmed She continues under the care of an orthopedist, Dr. Espinosa. Problem 811288377 Right lower quadrant abdominal pain (R10.31) Active confirmed There is a masslike effect in the right lower quadrant. A CT scan of the abdomen has been ordered along with comprehensive blood work. Problem 831575231 Diverticulitis (K57.92) Active confirmed This process and the pain have completely resolved Problem Calcaneal spur (67886361) Bone spur of inferior portion of calcaneus [...] Provider Diagnosis Stefan Sandoval III, MD [address] [place] [address] [place] [address] 03/27/2024 Stefan Sandoval Obesity (BMI 30-39.9 ) E66.9 ; Hyperlipidemia, unspecified hyperlipidemia type E78.5 ; Osteoarthritis of multiple joints, unspecified osteoarthritis type M15.9 ; Former smoker Z87.891 ; Primary osteoarthritis of right knee M17.11 and Essential hypertension I10 Stefan Sandoval III, MD [address] [place] [address] [place] [address] 06/27/2024 Stefan Sandoval Obesity (BMI 30-39.9 ) E66.9 ; Essential hypertension I10 ; Osteoarthritis of multiple joints, unspecified osteoarthritis type M15.9 ; Former smoker Z87.891 ; Primary osteoarthritis of right knee M17.11 and Hyperlipidemia, unspecified hyperlipidemia type E78.5 Stefan Sandoval III, MD [address] [place] [address] [place] [address] 11/01/2024 Stefan Sandoval Obesity (BMI 30-39.9 ) E66.9 ; Encounter for immunization Z23 ; Hyperlipidemia, unspecified hyperlipidemia type E78.5 ; Prediabetes R73.09 ; Essential hypertension I10 ; GERD (gastroesophageal reflux disease) K21.9 ; Former smoker Z87.891 and Primary osteoarthritis of right knee M17.11 Stefan Sandoval III, MD [address] [place] [address] [place] [address] 03/06/2025 Stefan Sandoval Obesity (BMI 30-39.9 ) E66.9 ; Right lower quadrant abdominal pain R10.31 ; Weight loss R63.4 ; Asymptomatic postmenopausal status Z78.0 ; Osteoarthritis of multiple joints, unspecified osteoarthritis type M15.9 ; Bone spur of inferior portion of calcaneus M77.30 ; Former smoker Z87.891 and Iron deficiency anemia, unspecified iron deficiency anemia type D50.9 Stefan Sandoval III, MD [address] [place] [address] [place] [address] 02/20/2025 Stefan Sandoval III, MD [address] [place] [address] [place] [address] 03/09/2025 Stefan Sandoval Right lower quadrant abdominal [...] her to continue her relationship with a turntable man on an annual basis. She will have [...] - K21.9) Her reflexes well controlled with dodp-ief-apuvlet medications. She will continue these for the [...] 06/27/2024 PROFILE, FASTING (COMPREHENSIVE METABOLI C) 10/27/2023 PROFILE, RANDOM (COMPREHENSIVE METABOLIC ) 03/06/2025 LIPID PANEL 06/27/2024 CBC w DIFF 06/27/2024 CBC w DIFF 03/06/2025 CT ABD WITH CONTRAST 03/06/2025 CT ABD & PELVIS WITH CONTRAST 03/09/2025 CBC WITH AUTO DIFF 10/27/2023 Complete Blood Count Auto Diff Comprehensive Met. Panel 03/22/2025 Ferritin 10/27/2023 Lipid Panel 10/27/2023 Next Appt Details Provider Name:Stefan Sandoval, 11/05/2025 11:00:00 AM, [address] [place] [address] DR, [facility] [place], [place], [address], Insurance Providers Payer Name Payer Address Payer Phone Subscriber Number Group Number Insured Name Patient Relationship to Insured Coverage Start Date Coverage End Date [facility] [address] [place] [address] [id number] Desiree Gaxiola Self - patient is the insured [place] [address] [place], [place] [id number] [phone] [id number] Desiree Gaxiola Self - patient is the [...] Left hip replacement 2002 Right hip replacement 2002 cholecystectomy 2000 Arthroscopic right knee surgery 1999 Left ear myringotomy 1977 Left knee dislocation 1975
--- OUTSIDE RECORDS SUMMARY | 2025-03-26 09:44 | XMS_ITS ---
Author Organization [facility] Address [address] [place] [address] Care Team Providers Care Beekeeper Farmer Name Role Phone Jaime RODRIGUEZ, Stefan Primary Care Provider Unavailab eulalia Kent Jr, Mark Soares REASON FOR VISIT pathology Encounters Encounter Location Date Provider Diagnosis [facility] [address] [place] [address] 12/29/2023 Mark Kent Jr Plan Of Treatment Next Appt Details Provider Name:Mark flower Jr, 04/04/2025 11:00:00 AM, [address], [address], [place], [address], Progress Notes * GABE PIPERDOB: 6 (58 yo F)Acc No.[id number]:12/29/2023 Patient:?VERONIQUE, GABE :1965???Age:58 Y???Sex:Female Address:[address] [place] [address] , [place], [address] * true * Date:? Generated for Mildredi alexa/Curt/eTransmitting on:?03/26/2025 09:44 AM EDT
--- OUTSIDE RECORDS SUMMARY | 2025-03-26 09:44 | XMS_ITS ---
Author Organization Stefan Sandoval III, MD Address [address] [place] [address] [place] [address] Care Team Providers Care Cook Candy Name Role Phone Stefan Sandoval Primary Care Provider REASON FOR VISIT New Order Social History Sex Assigned At : Social History Observation Description Sex Assigned At Female Encounters Encounter Location Date Provider Diagnosis Stefan Sandoval III, MD [address] [place] [address] [place] [address] 03/09/2025 Stefan Sandoval Right lower quadrant abdominal [...] Details Provider Name:Stefan Sandoval, 11/05/2025 11:00:00 AM, [address] [place] [address] [address], [address], Progress Notes * Desiree GAXIOLADOB: 6 (59 yo F)Acc No.[id number]:03/09/2025 Patient:?Desiree GAXIOLA :1965???Age:59 Y???Sex:Female Address:[address] [place] [address], [place], [address] Subjective: * Chief Complaints: * ???New Order [...] true * Date:? Generated for Joy liu/Curt/Willyitting on:?03/26/2025 09:44 AM EDT
[2025-03-26] MEDS: iohexoL 350 MG/ML 100 ML INFUS..BTL IV (12:22)
[2025-03-26] MEDS: Barium Sulfate Oral (Vanilla) 450 ML ORAL.SUSP 900 ML PO (12:23)
== END 2025-03-26 09:30 | disposition home or self-care (01) ==
LOC: HO.CT 09:29
PROVIDERS: PCP Internal Medicine Medical Oncology; Visit Provider Internal Medicine Medical Oncology
DX: R10.31 Right lower quadrant pain (principal); R63.4 Abnormal weight loss; R10.9 Unspecified abdominal pain
CPT/HCPCS: 74177; Q9967

== ENCOUNTER → 2025-03-26 09:31 | Outpatient (BNV) | payer OTHER, SELFPAY | PROVIDERS: PCP Internal Medicine Medical Oncology; Visit Provider Radiology Diagnostic Radiology | DX: K42.9 Umbilical hernia without obstruction or gangrene (principal); I70.90 Unspecified atherosclerosis; M47.815 Spondylosis without myelopathy or radiculopathy, thoracolumbar region | CPT/HCPCS: 74177 ==